=== PATIENT | male | born 1935 | race Caucasian/White ===

== ENCOUNTER 2024-11-16 06:13 | Day surgery (SDC) | payer OTHER, SELFPAY ==
[2024-11-16] VITALS (16 sets, daily range): BP systolic 118–147; BP diastolic 54–70; BMI 21.9
[2024-11-16 07:06] LABS: Hematocrit 33.1 % (39.0-52.0); Hemoglobin 11.3 g/dL (13.0-18.0); Mean Corp Hgb Conc. 34.1 g/dL (33.0-37.0); Mean Corpuscular Volume 96.8 fL (80.0-94.0); Mean Platelet Volume 10.5 fL (7.4-10.4); Platelet Count 133 10^3/uL (130-400); Red Blood Cell Count 3.42 10^6/uL (4.70-6.10); Red Cell Dist. Width 13.8 % (11.5-14.5); White Blood Cell Count 4.6 10^3/uL (4.8-10.8)
[2024-11-16 07:14] LABS: AST (SGOT) 28 U/L (17-59); Albumin 4.5 g/dl (3.5-5.0); Blood Urea Nitrogen 23 mg/dl (9-20); Carbon Dioxide 25 mmol/L (22-30); Estimated Creatinine Clearance 46 ml/min; Glucose 94 mg/dl (70-99); Total Bilirubin 0.5 mg/dl (0.2-1.3); Total Protein 7.2 g/dl (6.3-8.2); eGFR > 60.00
[2024-11-16 07:30] LABS: ALT (SGPT) 22 U/L (0-50); Alkaline Phosphatase 75 U/L (38-126); Calcium 9.8 mg/dl (8.4-10.2); Chloride 110 mmol/L (98-107); Potassium 4.4 mmol/L (3.5-5.1); Sodium 143 mmol/L (135-145)
[2024-11-16] MEDS: NSS 1000 IV (09:11)
--- NOTE | 2024-11-16 10:18 | CONSULT.STRU ---
Consultation
-
Date/Time Consultation Requested: 11/16/2024
Date/Time Consultation Performed: 11/16/2024
Requesting Provider: Odalis Siddiqi MD
Performing Provider: JEREMY Francisco
Reason for Consultation: /TAVR
Patient History
Physicians
Family Physician: Ruperto Motta MD
Outpatient Tailer Out: Josefa Barrett MD
Primary Tailer Out: Josefa Barrett MD
History of Present Illness
Mr. Haq is a very pleasant 89 yom with a past medical history significant for , CAD with a hx of CABG, HTN, and hyperlipidemia. His most recent echocardiogram is notable for EF 60-65%, AV P/M 73/37, AV 0.8, DI 0.2, Pk darlene 4.3, mild AI,
mild-moderate MR, mild TR. From a symptomatology standpoint, patient describes an increase in fatigue and a decrease in exercise tolerance more noticable over the last month. He denies BARRON, SOB, CP, LE edema. Discussed the pathophysiology and
treatment options of aortic stenosis including SAVR and TAVR, Explained the evaluation process comprising of lab work, CT scan, CT surgical consult, dental clearance, and a heart team discussion. TAVR booklet, contact information, prescriptions, and
appointments given to patient. Allowed for and answered questions at bedside.
Past Medical History
Past Medical History: CAD, HTN, Hypercholesterolemia and Valvular Disease (aortic stenosis)
Past Surgical History
Past Surgical History: CABG
Dental History
Dr. Stallworth--[facility]-- Form sent
Family History
Mother: N/A
Father: N/A
Social History
Alcohol: None
Drug: None
Tobacco: Non-Smoker
Allergies
Allergy/AdvReac Type Severity Reaction Status Date / Time
Sulfa (Sulfonamide Allergy Unknown Verified 11/16/24 06:23
Antibiotics)
Home Medications
�Medication �Instructions �Recorded �Confirmed �Type
doxazosin 8 mg tablet 8 mg PO QPM@199908/11/16 11/16/24 History
pantoprazole 40 mg tablet,delayed 40 mg PO QPM@199908/11/16 11/16/24 History
release
pravastatin 20 mg tablet 20 mg PO QPM@199908/11/16 11/16/24 History
aspirin 81 mg tablet,delayed 81 mg PO DAILY ##1 08/17/16 11/16/24 Rx
release
metoprolol succinate 50 mg 50 mg PO QPM #90 tabs 08/17/16 11/16/24 Rx
tablet,extended release 24 hr
oxycodone 5 mg tablet 5 mg PO Q4HPRN PRN MODERATE PAIN 08/17/16 11/16/24 Rx
##40
STS%
STS %: 8.04
Review of Systems
-
History Source: Patient
General: Reports Fatigue
HEENT: Reports No Symptoms
Respiratory: Reports No Symptoms
Cardiac: Reports No Symptoms
Abdomen/GI: Reports No Symptoms
: Reports No Symptoms
Musculoskeletal: Reports No Symptoms
Skin: Reports No Symptoms
Neurological: Reports No Symptoms
Vascular: Reports No Symptoms
Physical Exam
Vital Signs
Temp 97.5 F 11/16/24 06:36
Temp route: Oral 11/16/24 06:26
Pulse 71 11/16/24 08:55
Resp Rate 16 11/16/24 06:26
Blood pressure 142/69 11/16/24 08:55
Blood pressure extremity used: Left upper arm 11/16/24 06:26
Position: Sitting 11/16/24 06:26
MAP (cuff-Sonali Monitor) 93 11/16/24 08:55
SaO2 97 11/16/24 08:55
Oxygen Mode of Delivery Room air 11/16/24 06:26
Can the patient verbally communicate their pain? Yes 11/16/24 09:41
Actual Weight 56 kg 11/16/24 06:38
Body Mass Index (BMI) 21.9 11/16/24 06:38
Labs
11/16/24 06:43
11/16/24 06:43
Diagnostic Studies
Procedure Type:�Isolated AVR
Perioperative Outcome Estimate %
Operative Mortality 8.04%
Morbidity & Mortality 16.8%
Stroke 2.78%
Renal Failure 2.5%
Reoperation 5.69%
Prolonged Ventilation 10.7%
Deep Sternal Wound Infection 0.074%
Long Hospital Stay (>14 days) 9.2%
Short Hospital Stay (<6 days)* 24.6%
Exam
General: Well Developed, Well Nourished, No Apparent Distress and Comfortable
HEENT: Normocephalic and PERRLA
Neck: Trachea Midline
Respiratory: Clear (anteriorly)
Cardiac: Murmur (IV/ ROLAND)
GI: Soft, Non Tender, Non Distended and Normal Bowel Sounds
Rectal: Deferred by Provider
Skin: Warm and Dry
Neuro: Awake, Alert, Oriented and AO x 3
Psych: Calm
Assessment / Plan
-
Aortic Stenosis
Continue TAVR evaluation
Trend creatinine after contrast (RX given)
TAVR CT scan (12/04)
CT ssurgical consult (TT 11/16)
Frailty and KCcQ12 at consult
Continue aspirin
Dental clearance
Heart team discussion
Data Reviewed
-
Glass Mold Repairer: Discussed with Physician
Echo: Report Reviewed by me and Discussed with Physician
Labs: Labs Reviewed by me
Old Records: Reviewed
Total Time Spent with Patient (in minutes): 45
--- NOTE | 2024-11-16 11:53 | PTCARENOTE ---
All Discharge instructions given to patient and son with good understanding. radial site soft non tender. dsd intact with good radial pulse, Pt ready for discharge when the doctor to have a final check and follow up
--- NOTE | 2024-11-16 13:25 | PTCARENOTE ---
after saw patient and understand all f/u care. pt was discharged to home. site reamins intact iv d/romeo
--- NOTE | 2024-11-16 18:48 | ITS.CL.CATH ---
Addendum entered and electronically signed by Odalis Siddiqi MD 11/16/24 19:25:
HEMODYNAMICS : (mmHg)
AO (s/d) : 120/51
RADIATION SUMMARY: Fluoro Time (min): 8, Dose (mGy): 336.15, DAP (Gy.cm2) : 25.0
Original Note:
Butter Wrapper - Catheterization
Cardiac Catheterization
Procedure Report:
LEFT HEART CATHETERIZATION
Date of Procedure: November 16, 2024
Referring: Kimberly Barrett MD
PROCEDURES:
1. Left heart catheterization, coronary angiogram.
2. Moderate sedation.
3. Selective graft angiography
INDICATION: Workup pre-transcatheter aortic valve replacement; symptomatic severe aortic stenosis
ACCESS: Right radial artery, 6Fr. sheath, under US guidance.
HEMODYNAMICS : (mmHg)
AO (s/d) : [ ]
CORONARY FINDINGS
Dominance: Right
Left Main Trunk (LMT): Large caliber vessel that gives rise to the LAD and LCx branches. There is severe calcific 70 to 80% ostial to proximal stenosis.
Left Anterior Descending Artery (LAD): The left anterior descending artery is a heavily calcified vessel with a 80% proximal stenosis with a patent NICOLAS graft.
Left Circumflex Artery (LCx): The left circumflex artery has 100% chronic total occlusion with a patent saphenous vein graft supplying the OM retrogradely into the circumflex proper with right to left collaterals.
Right Coronary Artery (RCA): The right coronary artery is a dominant but small caliber vessel which supplies a very small distribution with a long 90 to 95% stenosis in the midportion and a short segment of occlusion at the crux. The small RPDA
fills via [id number]-hlyse collaterals.
GRAFT ANGIOGRAPHY:
1. NICOLAS to LAD is widely patent.
2. Saphenous vein graft to OM 2 is widely patent.
SEDATION: 37 minutes of procedural sedation was utilized. IV Midazolam and IV Fentanyl were administered. An independent medical front desk coordinator was present to assist with and help manage the patient's level of consciousness and physiologic status.
RADIATION SUMMARY: Fluoro Time (min): [ ], Dose (mGy): [ ], DAP (Gy.cm2) : [ ]
Closure Device: There were no immediate intra-procedural complications. The sheath was pulled in the bed laborer and a vascular-band applied to the right wrist for radial artery hemostasis using the patent hemostasis technique.
CONCLUSIONS
1. Significant tulalip coronary artery disease.
2. NICOLAS to LAD graft is widely patent.
3. Saphenous vein graft to OM 2 is widely patent.
RECOMMENDATIONS
1. Wean radial band per protocol. Monitor right hand perfusion and for bleeding from the radial site following removal of the vascular-band following trans-radial access.
2. Continue aggressive medical therapy and risk factor modification for secondary CAD prevention.
3. Continue outpatient workup for hematuria through urology.
4. Continue workup for severe aortic stenosis with consideration for transcatheter aortic valve replacement after completion of CT angio of chest, abdomen and pelvis and CT surgery consult.
Copy to: Kimberly Barrett MD
Odalis Siddiqi MD, [facility], [facility]
== END 2024-11-16 13:00 | disposition home or self-care (01) ==
LOC: CATH 06:13
PROVIDERS: ATTENDING PHYSICIAN Internal Medicine Interventional Cardiology
DX: I08.3 Combined rheumatic disorders of mitral, aortic and tricuspid valves (principal); I25.10 Atherosclerotic heart disease of native coronary artery without angina pectoris; I10 Essential (primary) hypertension; Z95.1 Presence of aortocoronary bypass graft; I25.82 Chronic total occlusion of coronary artery; Z79.899 Other long term (current) drug therapy; Z79.82 Long term (current) use of aspirin
CPT/HCPCS: 99152; 99153; 80053; 85027; 93455; C1894; Q9967

== ENCOUNTER → 2024-12-04 09:02 | Outpatient (REF) | payer OTHER, SELFPAY | LOC: RAD 09:02 | PROVIDERS: ATTENDING PHYSICIAN Nurse Practitioner Acute Care | DX: I35.0 Nonrheumatic aortic (valve) stenosis (principal) | CPT/HCPCS: 74174; 75572; Q9967 ==

== ENCOUNTER 2024-12-26 18:37 | Inpatient (IN) | payer OTHER, SELFPAY ==
[2024-12-26] VITALS (24 sets, daily range): BP systolic 66–120; BP diastolic 35–88; BMI 22.2
--- NOTE | 2024-12-26 12:24 | ED.GENMED ---
History of Present Illness
General
Chief Complaint: Weakness
Source: patient and family
Exam Limitations: none
Time Seen by Provider: 12/26/24 12:19
History of Present Illness
History of Present Illness:
89yoM with a history of coronary artery disease s/p CABG, hypertension, hyperlipidemia, aortic stenosis awaiting TAVR, and remote history of prostate cancer presenting for evaluation of dizziness. Patient reports progressive lightheadedness over
the past month and a half. He was previously able to walk 2 miles without any issues but he is now unable to do normal household tasks without significant dizziness. His son is concerned due to gait imbalance but patient has not fallen or lost
consciousness. Patient also reports hematuria over the past month with intermittent difficulty voiding. He was seen by his PCP yesterday for his symptoms and outpatient blood work was ordered. He was told that he appeared very pale and his blood
pressure was low and amlodipine was discontinued. Patient denies any shortness of breath, abdominal pain, vomiting, diarrhea, fevers.
Phy Exam
Physical Exam
Physical Exam:
Chronically ill-appearing, frail, no apparent distress
General Physical Exam
General Presentation: no apparent distress
General Skin: warm, dry and pale
General Habitus: elderly
General Mental: alert
ENT Exam
ENT Exam: normocephalic
Cardiovascular Exam
Cardiovascular Exam: systolic murmur
Pulmonary Exam
Pulmonary Exam: lungs clear, no respiratory distress, no rales, no crackles, no rhonchi and no wheezing
Gastrointestinal Exam
Gastrointestinal Exam: non tender, soft and non distended
Neurological Exam
Neurological Exam: alert
[place] Coma Scale
Eye Opening: Spontaneous
Verbal Response: Oriented
Motor Response: Obeys Commands
GCS Total Score: 15
Skin Exam
Skin Exam: warm/dry and pallor
Psychiatric Exam
Psychiatric Exam: normal mood/affect
Course
Orders/Labs/Results
Orders:
Orders
12/26/24 11:10
ECG [Electrocardiogram (*1)] Urgent
Reason for Study: Fatigue / Weakness
EKG- Treatment ONCE
12/26/24 12:26
Complete Blood Count/With Diff Urgent
Comprehensive Metabolic Panel Urgent
Ferritin Urgent
Comment: ADD ON
Iron Urgent
Comment: ADD ON
NT-proBNP Urgent
Comment: ADD ON
TSH Urgent
Comment: ADD ON
Total Iron Binding Urgent
Comment: ADD ON
Troponin I Urgent
12/26/24 12:40
Add On- LAB Urgent
Tests Added?: TSH, iron panel
CT Abd/pelvis W Iv Cont Urgent
Comment:
Reason For Exam: hematuria
12/26/24 13:14
Type+Screen Urgent
12/26/24 13:34
Blood Bank Products [* Blood Bank Products] Urgent
Blood Bank Products: *Packed RBC Leuko(PRBC's)
Quantity: 3
Transfuse Today: Yes
Reason: Anemia
12/26/24 14:28
Urinalysis Reflex To Culture Urgent
Date Specimen was Collected: 12/26/24
Time Specimen was Collected: 12:09
Urine Microscopic Reflex Cult Urgent
12/26/24 15:56
Add On- LAB Routine
Tests Added?: BNP
12/26/24 16:32
CARDIOLOGY CONSULT Routine
Consulting Provider: Thomas Colon
Was physician already notified: Yes
Reason for consult: ST lateral depressions Trop elevation CP free pending TAVR
Abnormal Lab Results
12/26/24 12/26/24 12/26/24
12:26 13:14 14:28
WBC 3.5 L 10^3/uL
(4.8-10.8)
RBC 1.53 L 10^6/uL
(4.70-6.10)
Hgb 4.8 L* g/dL
(13.0-18.0)
Hct 14.8 L* %
(39.0-52.0)
MCV 96.7 H fL
(80.0-94.0)
MCH 31.4 H pg
(27.0-31.0)
MCHC 32.4 L g/dL
(33.0-37.0)
MPV 10.6 H fL
(7.4-10.4)
Absolute Lymphs (auto) 0.4 L 10^3/uL
(1.2-3.4)
Neutrophils % 79.1 H %
(42.2-75.2)
Lymphocytes % 11.1 L %
(20.5-51.1)
Sodium 133 L mmol/L
(135-145)
BUN 30 H mg/dl
(9-20)
Glucose 105 H mg/dl
(70-99)
Ferritin 8.0 L ng/ml
(17.9-464.0)
Troponin I 0.572 H* ng/ml
Total Protein 6.1 L g/dl
(6.3-8.2)
Urine Ketones 1+ A
(Negative)
Ur Occult Blood Reflex 4+ A
(Negative)
Urine RBC >100 A /HPF
(0-2)
Urine Albumin (Reflex) 4+ A
(Neg - Trace)
Crossmatch IS Only See Detail
12/26/24 12:26
12/26/24 12:26
Vital Signs
Initial and Last Documented VS:
Initial Vital Signs
Temp Pulse Resp BP Pulse Ox
97.9 F 71 18 95/40 100
12/26/24 11:07 12/26/24 11:07 12/26/24 11:07 12/26/24 11:07 12/26/24 11:07
Last Documented Vital Signs
Temp Pulse Resp BP Pulse Ox
97.9 F 72 15 96/49 95
12/26/24 11:07 12/26/24 14:45 12/26/24 14:45 12/26/24 14:23 12/26/24 14:45
MDM/Problems Addressed
Differential Diagnosis Includes:
89yoM here with progressive lightheadedness x 1.5 months. Also having hematuria x 1 month. Blood pressure 95/40 in triage. Remainder of vital stable. He is pale on exam. Differential diagnosis includes but is not limited to: acute blood loss
anemia, orthostasis, dehydration, aortic stenosis, malignancy
Initial ED plan: Check cardiac labs, TSH, iron panel, UA, EKG, and CT abdomen.
*Pulse Oximetry
SaO2: 100
Oxygen Mode of Delivery: Room air
Patient hypoxic: no (100%)
*EKG
Interpreted by ED Provider?: Yes
EKG Intrepretation Date: 12/26/24
Heart Rate: 69
Rate: normal
Rhythm: sinus
[place]: normal axis
Interval: normal interval
QRS Pattern: normal QRS
Ischemia: non-specific ST changes
*Critical Care Note
Total Time (30-74mins, 75-104mins- exclusive of procedures): Not Applicable
Update Note
Update Note:
Labs reveal a hemoglobin of 4.8, down from 11.3 less than 2 months ago. Suspect anemia secondary to ongoing blood loss from hematuria. Troponin elevated at 0.57 and there are nonspecific ST changes on EKG. Suspect elevated troponin is demand
ischemia from his anemia. CT shows findings concerning for bladder malignancy. Consent obtained and 2 units PRBCs ordered for transfusion. Patient admitted for further management.
ED Attending Note
-
Portions of this chart may have been created with voice recognition software.� Occasional wrong word or��sound alike� substitutions may have occurred due to the inherent limitations of voice recognition software.
Discharge Plan
Departure
Patient Disposition: Admit
Date of Disposition: 12/26/24
Time of Disposition: 15:15
Presentation/result/management discussed w/ accepting MD/DO: Hospitalist
Discharge Problem:
Symptomatic anemia, Hematuria, Lesion of bladder, Elevated troponin
Prescriptions:
No Action
doxazosin 8 MG tablet
8 mg PO DAILY
pantoprazole 40 MG tablet,delayed release (DR/EC)
40 mg PO DAILY
aspirin 81 MG tablet,delayed release (DR/EC)
81 mg PO DAILY Qty: 1 0RF
atorvastatin 40 mg Tablet
80 mg PO DAILY
benazepril 20 mg Tablet
20 mg PO DAILY
ferrous sulfate 325 mg (65 mg iron) Tablet
325 mg PO DAILY
metoprolol succinate 50 MG tablet extended release 24 hr
50 mg PO DAILY
Referrals:
OSITO DUENAS MD [Family Provider, Family Practice]
Interventions
Interventions:
*Risk Screen - Suicide Last Done: 12/26/24 11:07
*General Assessment Last Done: 12/26/24 11:10
*Neglect/Abuse Screening Last Done: 12/26/24 11:07
*ED- Fall Risk Assessment Last Done: 12/26/24 14:00
ED- Cardiac Assessment Last Done: 12/26/24 11:10
ED- Neurological Assessment Last Done: 12/26/24 11:10
ED- Pulmonary Assessment Last Done: 12/26/24 11:10
Discharge Date and Time
Print Language: KAZAKH
[2024-12-26 12:58] LABS: Hematocrit 14.8 % (39.0-52.0); Hemoglobin 4.8 g/dL (13.0-18.0); Mean Corp Hgb Conc. 32.4 g/dL (33.0-37.0); Mean Corpuscular Volume 96.7 fL (80.0-94.0); Nucleated Red Blood Cells % 0 % (-); Platelet Count 132 10^3/uL (130-400); Red Cell Dist. Width 13.9 % (11.5-14.5)
[2024-12-26 13:04] LABS: ALT (SGPT) 28 U/L (0-50); AST (SGOT) 32 U/L (17-59); Albumin 4.0 g/dl (3.5-5.0); Alkaline Phosphatase 67 U/L (38-126); Blood Urea Nitrogen 30 mg/dl (9-20); Calcium 9.2 mg/dl (8.4-10.2); Carbon Dioxide 24 mmol/L (22-30); Chloride 105 mmol/L (98-107); Glucose 105 mg/dl (70-99); Potassium 4.7 mmol/L (3.5-5.1); Sodium 133 mmol/L (135-145); Total Protein 6.1 g/dl (6.3-8.2); eGFR 58.53
[2024-12-26 13:10] LABS: Iron 180 ug/dl (49-181)
[2024-12-26 13:21] LABS: Total Iron Binding Capacity 412 ug/dl (261-462)
[2024-12-26 13:22] LABS: Troponin I 0.572 ng/ml
[2024-12-26 14:48] LABS: Urine Character Cloudy (Clear)
[2024-12-26 14:58] LABS: Urine Red Blood Cell >100 /HPF (0-2); Urine Squamous Cell 0-2 /LPF (Few)
[2024-12-26 15:48] LABS: TSH 1.33 uIU/ml (0.47-4.68)
--- NOTE | 2024-12-26 15:50 | HPS.HSE ---
Addendum entered and electronically signed by Navdeep Mejia MD 12/26/24 19:34:
Correction IMU admit
Original Note:
Family Physician
-
Family Physician: OSITO DUENAS MD
Chief Complaint
-
Weakness
History of Present Illness
89M CAD CABG HTN HLD pending TAVR remote Hx Prostate Ca p/w exertional dyspnea weakness dizziness lightheadedness hematuria. Patient reports progressive lightheadedness over the past month and a half. He was previously able to walk 2 miles
without any issues but now unable to do normal household tasks without significant dizziness. Lives alone. Patient also reports hematuria over the past month with intermittent difficulty voiding. ED eval significant for Hgb 4.[address] abd/pelvis
concerning for bladder/renal ca. ST depressions also noted on lateral leads EKG with associate troponin elevation 0.572. Chest pain free at rest, though does report intermittent chest tightness/pressure sensation unclear frequency/duration. Blood
pressure borderline low/hypotensive, otherwise stable respiratory status on room air, non-tachy, afebrile, AOx3 conversant coherent.
Medical History
Past Medical History
Past Medical History: Reports Other (as above)
Past Surgical History: Reports Other (as above)
Social History
Tobacco: Non-smoker
Alcohol: Occasional
Drug: None
Personal:
Living: Alone
Employment: Retired
Family History
Family History: Not pertinent (reviewed)
Allergies / Home Medications
Allergies reflects when Allergies were last updated in [employer].
Home Medications with original date entered in [employer]
Allergy/Medication List:
Allergies
Allergy/AdvReac Type Severity Reaction Status Date / Time
Sulfa (Sulfonamide Allergy Unknown Verified 12/26/24 11:07
Antibiotics)
Home Medications
doxazosin 8 mg tablet 8 mg PO DAILY 08/11/16
pantoprazole 40 mg tablet,delayed release 40 mg PO DAILY 08/11/16
aspirin 81 mg tablet,delayed release 81 mg PO DAILY ##1 08/17/16
atorvastatin 40 mg tablet 80 mg PO DAILY 11/16/24
benazepril 20 mg tablet 20 mg PO DAILY 11/16/24
ferrous sulfate 325 mg (65 mg iron) tablet 325 mg PO DAILY 12/26/24
metoprolol succinate 50 mg tablet,extended release 24 hr 50 mg PO DAILY 12/26/24
Review of Systems
-
A 12 point ROS was completed and negative except as noted: Yes
Constitutional: Reports Other (as below)
Physical Exam
Vital Signs
Vital Signs
Temp Pulse Resp BP Pulse Ox
97.9 F 72 15 96/49 95
12/26/24 11:07 12/26/24 14:45 12/26/24 14:45 12/26/24 14:23 12/26/24 14:45
Physical Exam
General: Other (as below)
Laboratory Results
-
12/26/24 12:26
12/26/24 12:26
Laboratory Results
Total Bilirubin 0.5 mg/dl (0.2-1.3) 12/26/24 12:26
AST 32 U/L (17-59) 12/26/24 12:26
ALT 28 U/L (0-50) 12/26/24 12:26
Alkaline Phosphatase 67 U/L (38-126) 12/26/24 12:26
Troponin I 0.572 ng/ml H* 12/26/24 12:26
Impression/Plan
-
ROS
General: Denies fever chills night sweats unexpected weight loss
Neuro: Denies seizure shaking loss of consciousness dizziness vertigo
Psych: denies depression hallucinations confusion manic episodes
Endocrine: Denies polyuria polydipsia polyphagia heat/cold intolerance
HEENT: Denies blindness visual disturbances epistaxis
Pulmonary: denies coughing hemoptysis sneezing reports dyspnea on exertion
Cardiovascular: reports intermittent chest tightness/pressure sensation unclear duration frequency denies palpitations leg swelling
Hematology: reports signs symptoms of anemia such as lightheaded dizziness with activity exertional dyspnea
Gastrointestinal: denies nausea vomiting diarrhea constipation hematemesis hematochezia melena
Genito-Urinary: reports hematuria denies dysuria
Musculoskeletal: denies joint pain weakness
Dermatology: denies rash laceration bruising
Physical Exam
General: No cyanosis or jaundice. pallor noted
HEENT: Throat clear. PERRLA Normocephalic atraumatic, Pale Palpebral conjunctiva
NECK: Supple. No JVD Carotid Bruits
RESPIRATORY: Lungs clear to auscultation. No crackles wheezes stridor
CVS: S1, S2 normal. RRR. Systolic murmur 3/6
ABDOMEN: Soft, non-tender. appears distended. Bowel sounds present
EXTREMITIES: No peripheral cyanosis or edema.
WEATHER FORCASTER: AOx3 conversant coherent
IMPRESSION:
89M CAD CABG HTN HLD pending TAVR remote Hx Prostate Ca p/w exertional dyspnea exercise intolerance weakness dizziness lightheadedness hematuria 1-2 mo duration. Previously able to walk 2 miles daily w/o issues but now unable to do normal
household tasks without significant dizziness. Lives alone. ED eval significant for Hgb 4.[address] abd/pelvis concerning for bladder/renal ca. ST depressions also noted on lateral leads EKG with associate troponin elevation 0.572. Chest pain
free at rest, though does report intermittent chest tightness/pressure sensation unclear frequency/duration. Blood pressure borderline low/hypotensive, otherwise stable respiratory status on room air, non-tachy, afebrile, AOx3 conversant coherent.
PLAN:
#Severe symptomatic Anemia
#CT abd/pelvis concerning for bladder/Lt renal ca
#Hematuria
#Remote hx Prostate Ca
Tele admit
transfuse 3PRBC, follow up post-transfusion with AM labs
Urology and Oncology Eval requested
cont home doxazosin with holding parameters
bladder scan prn
#Troponin elevation possibly Non-ischemic ME 2/2 severe anemia as above
#EKG notes lateral ST depressions, currently chest pain free
#Severe , pending TAVR
#Hx CABG
#Hyperlipidemia
Cardio eval requested
ASA on hold d/t severe anemia as above
cont statin
Metoprolol cont with holding parameters
Trend troponin
#Hx HTN
ACEI on hold d/t borderline low normotension/hypotension
cont metoprolol and doxazosin with holding parameters
#Leukopenia
monitor
#Mild Hyponatremia
monitor
DVT ppx SCD
DNR as per patient, family at bedside in agreement with patient's decision
Discussed with patient and patient's family at bedside.
I spent a total of 80 minutes with the patient or on the floor. More than 50% of this time involved counseling and coordination of care.
[2024-12-26 15:53] LABS: Ferritin 8.0 ng/ml (17.9-464.0)
--- NOTE | 2024-12-26 17:44 | W.PN.URO.CBU ---
Today's Communication / Plan
-
AWAIT TRANSFUSION AND CARDIAC CLEARANCE
Assessment / Plan
-
NEEDS TO TRANSFUSE AND GET CLEARED BY CARDILIOGYM FOR GEMNERAL ANESTHESIA CYSTO AND PROBALE YRUBY=-T AND EVAC OF VCLOT IF JUST BPH WHCH IDOUBT THEN FMED THERAPY AFTER CYSTO
Diagnosis
-
Date of Service: December 26, 2024
-
Patient Diagnosis:remote h/o acp s/p xrt then started having almost daily hematuria after [id number] His local utoligsit tried tx for uti but cx neg and routine appt set up mid december Hematuriapersisted no dysuria no major clots no colic
feels like empties But pt felt weak saw pcp hgb drawn and had hgb 4.[address] scan revealed proba vic cyst no hydro but 4cm bladder mass c/w tcc nbut clot and bph not ruled out.hgb 4 Wants suggested to need TAVr but cardilogy staes
no Tavr WITHOUT ADDRESSING BLADDER MASS NEEDS ANTICOAGLANTS.
Post Op Day:
Subjective
-
WEAK NO FEVER CHILLS
Objective
-
Vital Signs
Temp Pulse Resp BP Pulse Ox
98.2 F 80 18 86/47 96
12/26/24 17:25 12/26/24 17:25 12/26/24 17:25 12/26/24 17:25 12/26/24 17:25
Intake and Output
12/25/24 12/26/24 12/27/24
06:59 06:59 06:59
Intake Total 0 / 0
Balance 0 / 0
Intake:
Blood Product Amount Infused ( 0 / 0
mL)
Packed Rbc Leukoreduced Unit 0 / 0
[id number]
Laboratory Results
12/26/24 12:26
12/26/24 12:26
Review of Systems
-
Constitutional: Fatigue
Cardiac: No Symptoms
Abdomen/GI: No Symptoms
: Bleeding
Physical Exam
-
General - well developed, well nourished, no acute distress
Chest - clear bilaterally
Abdomen - soft, non-tender, positive bowel sounds, no CVAT, no incisional pain or distention
Genitalia - normal
Rectal - normal
Skin - warm & dry with no rash
Neuro - AOx3, no motor deficits
Extremities - no clubbing, no cyanosis, no edema
Incision - clean, dry
D
Care Review
Data Reviewed
Discussed with: Cardiology, Hospitalist and Family
CT Scan: Image Pers Reviewed
[2024-12-26 21:39] LABS: Troponin I 0.825 ng/ml
--- NOTE | 2024-12-26 22:25 | PTCARENOTE ---
Addendum entered by Melania Garg RN 12/26/24 23:57:
*pierre placed and only 350 ml of bloody urine with clots drained*
Original Note:
Received patient from the ED. Patient with complaints of being unable to void- bladder scanned for greater than 750. Patient came in to the ED with hematuria and hgb of 4.8. For cysto/turbt once transfused and cleared by cards for anesthesia. On
call provider made aware and discussed with her whether or not to straight cath or place indwelling. call center assistant provider placed order for indwelling pierre. Pierre placed and 750 mls of bloody urine with clots draining. Will continue to monitor.
--- NOTE | 2024-12-26 23:58 | PTCARENOTE ---
Patient with only 350 ml output blood urine with clots after indwelling pierre placed. junior administrative assistant provider made aware and ordered hand irrigation and to TT digital content coordinator urology. junior administrative assistant urology contacted and made aware of situation. Order for [address]
pierre obtained and to hand irrigate with 200 ml until urine runs clear and to start CBI. Urology recommendations relayed to community services coordinator provider and digital content coordinator provider placed orders.
[2024-12-27] VITALS (29 sets, daily range): BP systolic 94–131; BP diastolic 41–82
--- NOTE | 2024-12-27 00:43 | W.PN.UPDATE ---
Addendum entered and electronically signed by JEREMY Molina 12/27/24 03:13:
hgb level is 6.6 will order one unit of blood
Original Note:
Update Note
Progress Note Update
-Pierre ordered for urinary retention/ bladder scan 750cc.
-350cc of bloody urine with clots drained after pierre placed.
-New recommendation per urology button decorating machine operator to replace pierre with 24fr/ 3 way, hand irrigation, and to start CBI after urine runs clear.
-Vital signs within normal limit. Patient just finished the 2nd unit of blood. Will monitor h&h q 6hrs
[2024-12-27 03:01] LABS: Blood Urea Nitrogen 27 mg/dl (9-20); Calcium 9.0 mg/dl (8.4-10.2); Carbon Dioxide 20 mmol/L (22-30); Chloride 110 mmol/L (98-107); Estimated Creatinine Clearance 38 ml/min; Glucose 82 mg/dl (70-99); Magnesium 2.2 mg/dl (1.6-2.3); Potassium 4.2 mmol/L (3.5-5.1); Sodium 138 mmol/L (135-145); eGFR > 60.00
[2024-12-27 03:06] LABS: Hematocrit 19.7 % (39.0-52.0); Hemoglobin 6.6 g/dL (13.0-18.0); Mean Corp Hgb Conc. 33.5 g/dL (33.0-37.0); Mean Corpuscular Volume 92.1 fL (80.0-94.0); Platelet Count 121 10^3/uL (130-400); Red Cell Dist. Width 14.5 % (11.5-14.5)
[2024-12-27 03:33] LABS: Troponin I 2.030 ng/ml
--- NOTE | 2024-12-27 05:01 | PTCARENOTE ---
CBI initiated overnight. Punch colored urine with no clots. Am hgb 6.6. call or contact centre team leader provider made aware and 3rd unit of PRBCs to be infused.
--- NOTE | 2024-12-27 05:43 | PTCARENOTE ---
Patient with sp02 at 88 percent while asleep. Placed on 2 liters NC. Lungs diminished no complaints of SOB. Satting 99 percent on 2 liters.
[2024-12-27] MEDS: LIPITOR 80 MG PO (08:10)
[2024-12-27] MEDS: FLOMAX 0.4 MG PO (08:11)
[2024-12-27] MEDS: PROTONIX 40 MG PO (08:11)
[2024-12-27] MEDS: FEOSOL 325 MG PO (08:11)
--- NOTE | 2024-12-27 08:36 | W.PN.CARDCBS ---
Addendum entered and electronically signed by Xu Seay MD 12/27/24 19:05:
Patient with predominantly asymptomatic Mobitz 1 second-degree heart block. Metoprolol has been stopped. At present, no indication for pacemaker implantation but will need to observe.
Hopefully, patient will be improved as beta-meliton is discontinued, will need to reassess in a.m. before he goes to the OR.
Original Note:
Today's Communication / Plan
-
Check echo
Okay to proceed in a.m. to the OR for TURBT
Impression / Plan
-
Assessment:
Subacute/acute blood loss anemia, initial Hgb 4.7 on 12/26/24
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
Abnormal CT abdomen/pelvis with bladder lesions concerning for malignancy and possible left kidney complex cyst versus malignant lesion 12/26/2024
Elevated troponin, suspected nonischemic myocardial injury in setting of above
Severe , undergoing TAVR work up
CAD
s/p CABG x2 NICOLAS to LAD and SVG to OM2 2016
s/p cath (TAVR work up) with patient bypass grafts, severe [place] CAD 11/16/24
HTN
HLD
History of prostate cancer s/p radiation therapy
ECHO at [facility] 10/18/24:EF 60%, mild cLVH, grade 1 diastolic dysfunction, Severe with peak/mean gradient 73/37 mmHg LEANNE 0.8 cm�, peak velocity 4.3M/S with dimensionless index of 0.2, mild to mod MR, mild TR, mod DC, PAS 24mmHg, at least
one echolucent structure in hepatic parenchyma likely consistent with hepatic cysts
Plan:
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
His functional status despite his aortic stenosis was good up until the time that he became anemic. Could walk 30 minutes even with his aortic stenosis. Also encouraging is the fact that he tolerated a hemoglobin of 4.8 as well as he did.
It is helpful that he had a cardiac catheterization showing patent grafts just 1 month ago, and that LV function is normal.
Recommend proceeding as planned for TURBT in a.m. Cardiac risk will be somewhat elevated given his aortic stenosis and non-ACS related troponin elevation.
Continue metoprolol.
We will recheck echocardiogram today.
Progress Note - Technical Account Executive
Subjective
Date of Service: December 27, 2024:
89-year-old male with admitted with dizziness, lightheadedness and hemoglobin of 4.8 in the setting of hematuria and newly discovered bladder tumor. Currently undergoing evaluation for TAVR.
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
FH/SH/allergies/meds as previously documented
ROS, rest of history as previously documented
Current meds:Atorvastatin 80 mg a day, iron, tamsulosin, pantoprazole 40 mg a day, metoprolol tartrate 25 mg twice daily
98/55, pulse 70, respiratory rate 20, afebrile, sats 92%, he says he feels considerably better, still somewhat pale, lungs are clear, aortic stenosis murmur, abdomen benign not much edema JVD okay
ECG: Sinus rhythm, borderline first-degree AV block, nonspecific ST and T changes
Hemoglobin 6.6, white count 4.5, 121 platelets, BUN and creatinine are 27 and 1.1, proBNP is 3970, peak troponin is 2.03
Objective
Labs:
12/27/24 14:00
12/27/24 02:41
Labs
Hgb Cancelled 12/27/24 14:00
Hct Cancelled 12/27/24 14:00
Plt Count 121 10^3/uL (130-400) L 12/27/24 02:41
Sodium 138 mmol/L (135-145) 12/27/24 02:41
Potassium 4.2 mmol/L (3.5-5.1) 12/27/24 02:41
BUN 27 mg/dl (9-20) H 12/27/24 02:41
Creatinine 1.1 mg/dL (0.7-1.3) 12/27/24 02:41
Glucose 82 mg/dl (70-99) 12/27/24 02:41
Troponins
12/26/24 12/26/24 12/27/24
12:26 21:06 02:41
Troponin I 0.572 H* 0.825 H* 2.030 H* D
12/27/24
06:00
Troponin I Cancelled
Vital Signs and I&O:
Vital Signs
Temp Pulse Resp BP Pulse Ox
36.7 C 70 20 98/55 92
12/27/24 07:45 12/27/24 07:45 12/27/24 07:45 12/27/24 08:11 12/27/24 07:45
Vital Signs
Temp Pulse Resp BP Pulse Ox
36.7 C 70 20 98/55 92
12/27/24 07:45 12/27/24 07:45 12/27/24 07:45 12/27/24 08:11 12/27/24 07:45
Intake & Output
12/25/24 12/26/24 12/27/24 12/28/24
07:59 07:59 07:59 07:59
Intake Total 750 / 750
Output Total 900 / 900
Balance -150 / -150
Physical Exam
Physical Exam
See above
--- NOTE | 2024-12-27 08:36 | W.PN.URO.CBU ---
Today's Communication / Plan
-
OP MARTIN TENTAIVELY TUESDAY
Assessment / Plan
-
NEEDS TO TRANSFUSE AND GET CLEARED BY CARDIOLOGY FOR TURBT EARLY TUESDAY NEED HGB UP
Diagnosis
-
Date of Service: December 27, 2024
-
Patient Diagnosis:
Post Op Day:
Patient Diagnosis:remote h/o acp s/p xrt then started having almost daily hematuria after [id number] His local utoligsit tried tx for uti but cx neg and routine appt set up mid december Hematuriapersisted no dysuria no major clots no colic
feels like empties But pt felt weak saw pcp hgb drawn and had hgb 4.[address] scan revealed proba vic cyst no hydro but 4cm bladder mass c/w tcc nbut clot and bph not ruled out.hgb 4 Wants suggested to need TAVr but cardilogy staes
no Tavr WITHOUT ADDRESSING BLADDER MASS NEEDS ANTICOAGLANTS.
Post Op Day:
Subjective
-
still mild hematuria
Objective
-
Vital Signs
Temp Pulse Resp BP Pulse Ox
98.1 F 70 20 98/55 92
12/27/24 07:45 12/27/24 07:45 12/27/24 07:45 12/27/24 08:11 12/27/24 07:45
Intake and Output
12/26/24 12/27/24 12/28/24
06:59 06:59 06:59
Intake Total 500 / 500 250 / 250
Output Total 900 / 900
Balance -400 / -400 250 / 250
Intake:
Blood Product Amount Infused ( 500 / 500 250 / 250
mL)
Packed Rbc Leukoreduced Unit 250 / 250
[id number]
Packed Rbc Leukoreduced Unit 250 / 250
[id number]
Packed Rbc Leukoreduced Unit 0 / 0 250 / 250
[id number]
Output:
Urine, Colvin 900 / 900
Laboratory Results
12/27/24 14:00
12/27/24 02:41
Review of Systems
-
: Difficulty Voiding and Bleeding
Physical Exam
-
General - well developed, well nourished, no acute distress
Chest - clear bilaterally
Abdomen - soft, non-tender, positive bowel sounds, no CVAT, no incisional pain or distention
Genitalia - normal
Rectal - normal
Skin - warm & dry with no rash
Neuro - AOx3, no motor deficits
Extremities - no clubbing, no cyanosis, no edema
Incision - clean, dry
Dressing - clean, dry, intact
Care Review
Data Reviewed
Discussed with: Hospitalist and Nursing
CT Scan: Image Pers Reviewed
--- NOTE | 2024-12-27 09:01 | CON.ONC ---
Consultation
-
Date Consultation Requested: 12/27/24
Date Consultation Performed: 12/27/24
Performing Provider: Jeannette Bruno
Impression
Impression
Hematuria and Bladder Mass
- visualized on CT AP: 3.6 x 1.3 cm exophytic lesion in the posterior aspect of the urinary bladder in the region of the trigone
- urology consulted, TURBT tentatively scheduled for Tuesday
Symptomatic Anemia in setting of acute blood loss
- gross hematuria for last 6 weeks
- blood transfusion initiated today
Aortic Stenosis with planned TAVR
- cardiology will delay TAVR until after bladder surgery d/t need for anticoagulation after procedure
Plan
Plan
- repeat CBC after blood transfusion
- TURBT scheduled tentatively for Tuesday with urology
- will continue to follow while admitted
Patient History
History of Present Illness
Patient is a 89 yo male with PMH of hypertension, CAD s/p CABG, pending TAVR, history of prostate cancer s/p radiation who presented to the ED with dyspnea, weakness, lightheadedness and hematuria. Patient has been having progressive
lightheadedness for the past month. 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 Patient also notes hematuria over last 6 weeks associated with a difficulty in
voiding. Patient previously followed with his urologist, not associated with [facility], and saw them shortly after the hematuria started and completed a course of antibiotics for possible UTI that made no difference in his hematuria.
In the ED Hgb 4.8. Patient also had a CT AP for concern of bladder/renal cancer. CT revealed a 3.6 x 1.3 cm exophytic lesion in the posterior aspect of the urinary bladder in the region of the trigone which is highly concerning for malignancy and a
3.3 cm mildly hyperdense lesion in the interpole of the left kidney which may represent a complex cyst, but if in setting of malignancy, MRI recommended. Urology consulted.
Patient also had ST depressions noted on lateral leads EKG with associate troponin elevation 0.572. Patient denied chest pain, but does report intermittent chest tightness and pressure. Cardiology consulted. TAVR to be completed after bladder
surgery d/t anticoagulation.
Hgb this morning was 6.6. Patient started blood transfusion this morning. Needs improved Hgb and cardiac clearance for anesthesia before urology will perform cysto or surgical excision of bladder mass.
Today patient is seen at the bedside with his specialty molder in the room. Patient starting to get another unit of blood. Patient is starting to feel stronger and denies ROS. He hopes to get his appetite back soon.
Past-Medical/Surgical History
Past Medical History
CAD s/p CABG
HTN
HLD
pending TAVR
history of prostate cancer s/p radiation
Patient Medication
�Medication �Instructions �Recorded �Confirmed �Last Taken �Type
doxazosin 8 mg tablet 8 mg PO DAILY BPH 08/11/16 12/26/24 12/26/24 History
pantoprazole 40 mg tablet,delayed 40 mg PO DAILY Gastrointestinal 08/11/16 12/26/24 12/26/24 History
release Issue
aspirin 81 mg tablet,delayed 81 mg PO DAILY ##1 08/17/16 12/26/24 12/26/24 Rx
release
atorvastatin 40 mg tablet 80 mg PO DAILY High Cholesterol 11/16/24 12/26/24 12/26/24 History
benazepril 20 mg tablet 20 mg PO DAILY Blood Pressure 11/16/24 12/26/24 12/26/24 History
ferrous sulfate 325 mg (65 mg 325 mg PO DAILY Supplement 12/26/24 12/26/24 12/26/24 History
iron) tablet
metoprolol succinate 50 mg 50 mg PO DAILY Heart 12/26/24 12/26/24 12/26/24 History
tablet,extended release 24 hr Disease/Condition
Active Medications
Generic Name Dose Route Start Last Admin
Trade Name Freq PRN Reason Stop Dose Admin
Acetaminophen 650 mg 12/26/24 20:13
Acetaminophen 325 Mg Tablet PO 01/23/25 20:12
Q4HPRN PRN
mild pain/FRANKLIN/temp> 100.4F
Atorvastatin Calcium 80 mg 12/27/24 08:00 12/27/24 08:10
Atorvastatin (Lipitor) 40 Mg Tablet PO 01/24/25 07:59 80 mg
DAILY ABDI Administration
Bisacodyl 10 mg 12/26/24 20:13
Bisacodyl 10 Mg Rectal Suppository RECTAL 01/23/25 20:12
[id number] PRN
constipation
Ferrous Sulfate 325 mg 12/27/24 08:00 12/27/24 08:11
Ferrous Sulfate 325 Mg Tablet PO 01/24/25 07:59 325 mg
DAILY ABDI Administration
Metoprolol Tartrate 25 mg 12/27/24 08:00 12/27/24 08:11
Metoprolol 25 Mg Regular Release Tablet PO 01/24/25 07:59 Not Given
BID ABDI
Pantoprazole Sodium 40 mg 12/27/24 08:00 12/27/24 08:11
Pantoprazole 40 Mg Delayed Release Tablet PO 01/24/25 07:59 40 mg
DAILY ABDI Administration
Polyethylene Glycol 17 grams 12/26/24 20:13
Polyethylene Glycol Powder 17 Grams Packet PO 01/23/25 20:12
DAILYPRN PRN
constipation
Senna/Docusate Sodium 1 tablet 12/26/24 20:13
Docusate W/Senna (Mae-Colace) Tablet PO 01/23/25 20:12
BIDPRN PRN
constipation
Sodium Chloride 0 flush 12/26/24 21:00
Sodium Chloride 0.9% (Flush) Syringe IV 01/23/25 20:59
PER PROTOCOL ABDI
Tamsulosin HCl 0.4 mg 12/27/24 08:00 12/27/24 08:11
Tamsulosin 0.4 Mg Capsule PO 01/24/25 07:59 0.4 mg
DAILY ABDI Administration
Review of Systems
-
History Source: Patient
Constitutional: Reports No Appetite and Fatigue
EENT: Reports No Symptoms
Respiratory: Reports Other (dyspnea)
Cardiac: Reports No Symptoms
GI: Reports No Symptoms
: Reports No Symptoms
Musculoskeletal: Reports No Symptoms
Skin: Reports No Symptoms
Neuro: Reports Dizzy
Psych: Reports No Symptoms
Physical Exam
-
General: No Apparent Distress, Comfortable and Appears Chronically Ill
Cardiology: Normal Sinus Rhythm and Murmur
Pulmonary: Clear
GI: Soft
Skin: Warm and Dry
Psych: Calm
Labs
Lab Results
WBC 4.5 10^3/uL (4.8-10.8) L 12/27/24 02:41
RBC 2.14 10^6/uL (4.70-6.10) L 12/27/24 02:41
Hgb Cancelled 12/27/24 14:00
Hct Cancelled 12/27/24 14:00
MCV 92.1 fL (80.0-94.0) 12/27/24 02:41
MCH 30.8 pg (27.0-31.0) 12/27/24 02:41
MCHC 33.5 g/dL (33.0-37.0) 12/27/24 02:41
RDW 14.5 % (11.5-14.5) 12/27/24 02:41
Plt Count 121 10^3/uL (130-400) L 12/27/24 02:41
MPV 10.3 fL (7.4-10.4) 12/27/24 02:41
Abs Immat Gran (auto) 0.0 10^3/uL (0-0.05) 12/26/24 12:26
Absolute Neuts (auto) 2.8 10^3/uL (1.4-6.5) 12/26/24 12:26
Absolute Lymphs (auto) 0.4 10^3/uL (1.2-3.4) L 12/26/24 12:
Absolute Monos (auto) 0.3 10^3/uL (0.1-0.6) 12/26/24 12:
Absolute Eos (auto) 0.0 10^3/uL (0-0.7) 12/26/24 12:
Absolute Basos (auto) 0.0 10^3/uL (0-0.2) 12/26/24 12:
Immature Gran % 0.3 % (0-0.5) 12/26/24 12:
Neutrophils % 79.1 % (42.2-75.2) H 12/26/24 12:
Lymphocytes % 11.1 % (20.5-51.1) L 12/26/24 12:
Monocytes % 8.6 % (1.7-9.3) 12/26/24 12:
Eosinophils % 0.6 % (0-6) 12/26/24 12:
Basophils % 0.3 % (0-2) 12/26/24 12:
Creatinine 1.1 mg/dL (0.7-1.3) 12/27/24 02:41
Vital Signs
Vital Signs
Temp Pulse Resp BP Pulse Ox
98.1 F 70 20 98/55 92
12/27/24 07:45 12/27/24 07:45 12/27/24 07:45 12/27/24 08:11 12/27/24 07:45
--- NOTE | 2024-12-27 09:03 | W.PN.HOSP.TC ---
Today's Communication/Plan
-
Blood transfusions
Metoprolol discontinued
cont color television console monitor
Colvin CBI NPO after midnight for TURBT as per urology
Cardio to re-assess Raphael type 1 in AM before procedure
Assessment / Plan
Assessment / Plan
Physical Exam
General: No cyanosis or jaundice. pallor noted
HEENT: Throat clear. PERRLA Normocephalic atraumatic, Pale Palpebral conjunctiva
NECK: Supple. No JVD Carotid Bruits
RESPIRATORY: Lungs clear to auscultation. No crackles wheezes stridor
CVS: S1, S2 normal. RRR. Systolic murmur 3/6
ABDOMEN: Soft, non-tender. appears distended. Bowel sounds present
EXTREMITIES: No peripheral cyanosis or edema.
TENDERIZER TENDER: AOx3 conversant coherent
IMPRESSION:
89M CAD CABG HTN HLD pending TAVR remote Hx Prostate Ca p/w exertional dyspnea exercise intolerance weakness dizziness lightheadedness hematuria 1-2 mo duration. Previously able to walk 2 miles daily w/o issues but now unable to do normal
household tasks without significant dizziness. Lives alone. ED eval significant for Hgb 4.[address] abd/pelvis concerning for bladder/renal ca. ST depressions also noted on lateral leads EKG with associate troponin elevation 0.572. Chest pain
free at rest, though does report intermittent chest tightness/pressure sensation unclear frequency/duration. Blood pressure borderline low/hypotensive, otherwise stable respiratory status on room air, non-tachy, afebrile, AOx3 conversant coherent.
PLAN:
#Severe symptomatic Anemia
#CT abd/pelvis concerning for bladder/Lt renal ca
#Hematuria, retention
#Remote hx Prostate Ca
Tele admit
transfused 3PRBC, 2 more PRBC ordered for goal 9-10 in preparation for urology procedure
Urology appreciated Colvin CBI npo after midnight for TURBT
Oncology Eval appreciated
home doxazosin substituted with Flomax during stay
bladder scan prn
#Troponin elevation possibly Non-ischemic AR 2/2 severe anemia as above
#EKG notes lateral ST depressions, currently chest pain free
#Severe , pending TAVR
#Hx CABG
#Hyperlipidemia
Cardio eval appreciated
ASA on hold d/t severe anemia as above
cont statin
Troponin trended
#Bradycardia
#Secondary Heart Block Mobitz type 1
Home Metoprolol discontinued
cont monitoring
#Hx HTN
ACEI on hold d/t borderline low normotension/hypotension
Home Metoprolol discontinued d/t Mobitz type 1 as above
#Leukopenia
resolved
#Mild Hyponatremia
resolved
DVT ppx SCD
DNR
Discussed with patient and patient's son Xu at bedside.
I spent a total of 50 minutes with the patient or on the floor. More than 50% of this time involved counseling and coordination of care.
Anticipated Discharge: > 48 hours
Subjective/Interval History
-
Date of Service: December 27, 2024
No acute distress, appears comfortable, significant symptomatic improvement, pallor resolved. Requiring 2L NC supplementation but otherwise stable respiratory status. Day's events notable for asymptomatic bradycardia Mobitz type 1 secondary AV
block (noted some lightheadedness however this has been present prior and more likely related to severe anemia). Endorses constipation. Colvin CBI in place with punch colored urine. Son Xu present during evaluation.
Objective Data
-
Labs:
Laboratory Results
12/27/24 12/27/24 12/27/24
02:41 02:41 02:41
WBC 4.5 L
Hgb 6.6 L* D Cancelled
Hct 19.7 L* Cancelled
Plt Count 121 L
Sodium 138
Potassium 4.2
Chloride 110 H
Carbon Dioxide 20 L
BUN 27 H
Creatinine 1.1
Glucose 82
Calcium 9.0
12/27/24 12/27/24
08:00 14:00
WBC
Hgb Cancelled Cancelled
Hct Cancelled Cancelled
Plt Count
Sodium
Potassium
Chloride
Carbon Dioxide
BUN
Creatinine
Glucose
Calcium
Vital Signs:
Vital Signs
Temp Pulse Resp BP Pulse Ox
98.1 F 70 20 98/55 92
12/27/24 07:45 12/27/24 07:45 12/27/24 07:45 12/27/24 08:11 12/27/24 07:45
I&O
12/26/24 12/27/24 12/28/24
06:59 06:59 06:59
Intake Total 500 / 500 250 / 250
Output Total 900 / 900
Balance -400 / -400 250 / 250
[2024-12-27 09:25] LABS: Troponin I 2.500 ng/ml
--- NOTE | 2024-12-27 12:39 | PTCARENOTE ---
Approx 1125 pt's heart rhythm became irregular on monitor, it appears patient heart rhythm changed from SR with first degree AV block to a second degree heart block, Mobitz 1. Pt reports feeling lightheaded with sitting up but otherwise
asymptomatic. HR also intermittently going rosemary as low as 40s, was consistently in the 70s. BP stable. and , cardiology made aware. EKG ordered and confirmed heart block. Metoprolol was discontinued. Metoprolol was held this morning
due to BP parameters.
[2024-12-27] MEDS: SENOKOT-S 1 TABLET PO ×2 (14:02→19:54)
[2024-12-27 15:50] LABS: Troponin I 2.000 ng/ml
[2024-12-27 18:35] LABS: Hematocrit 29.2 % (39.0-52.0); Hemoglobin 10.1 g/dL (13.0-18.0)
[2024-12-28] VITALS (20 sets, daily range): BP systolic 100–140; BP diastolic 45–126
[2024-12-28 04:24] LABS: Hematocrit 29.2 % (39.0-52.0); Hemoglobin 10.2 g/dL (13.0-18.0); Mean Corp Hgb Conc. 34.9 g/dL (33.0-37.0); Mean Corpuscular Volume 90.1 fL (80.0-94.0); Platelet Count 122 10^3/uL (130-400); Red Cell Dist. Width 14.6 % (11.5-14.5)
[2024-12-28 04:40] LABS: Blood Urea Nitrogen 21 mg/dl (9-20); Calcium 8.3 mg/dl (8.4-10.2); Carbon Dioxide 20 mmol/L (22-30); Chloride 108 mmol/L (98-107); Estimated Creatinine Clearance 42 ml/min; Glucose 81 mg/dl (70-99); Magnesium 2.2 mg/dl (1.6-2.3); Potassium 4.1 mmol/L (3.5-5.1); Sodium 136 mmol/L (135-145); eGFR > 60.00
--- NOTE | 2024-12-28 05:36 | PTCARENOTE ---
No acute events overnight. CBI running with punch colored output. Am hgb 10.2. Plan for OR today for bladder resection. Patient remained NPO at midnight.
[2024-12-28] MEDS: LR 1000 IV ×2 (05:50→17:21)
[2024-12-28] MEDS: FEOSOL 325 MG PO (09:27)
[2024-12-28] MEDS: FLOMAX 0.4 MG PO (09:28)
[2024-12-28] MEDS: SENOKOT-S 1 TABLET PO ×2 (09:29→19:57)
[2024-12-28] MEDS: LIPITOR 80 MG PO (09:29)
[2024-12-28] MEDS: PROTONIX 40 MG PO (09:29)
--- NOTE | 2024-12-28 09:31 | W.PN.ONC ---
Documented by User: Josefa Mccord DO, Resident 12/28/24 09:36
Today's Communication / Plan
-
- hgb 10.2 today, continue to monitor with daily CBC
- TURBT scheduled today with urology, pending cardiac clearance
- will continue to follow while admitted
Impression
Impression
Hematuria and Bladder Mass
- visualized on CT AP: 3.6 x 1.3 cm exophytic lesion in the posterior aspect of the urinary bladder in the region of the trigone
- urology consulted, TURBT tentatively scheduled for today
Symptomatic Anemia in setting of acute blood loss
- gross hematuria for last 6 weeks
- blood transfusion initiated yesterday
- hgb 10.2 today
Aortic Stenosis with planned TAVR
- cardiology will delay TAVR until after bladder surgery d/t need for anticoagulation after procedure
Plan
Plan
- hgb 10.2 today, continue to monitor with daily CBC
- TURBT scheduled today with urology, pending cardiac clearance
- will continue to follow while admitted
Subjective/Objective
Subjective/Objective
Patient seen today at the bedside. Patient states he is feeling much better. Patient denies all ROS.
Physical:
General: not in acute distress
Cardiovascular: RRR
Respiratory: normal breath sounds
Abdomen: soft, non tender, normal bowel sounds
: pierre in place with dark red, blood tinged urine in bag
Vital Signs:
Vital Signs
Temp Pulse Resp BP Pulse Ox
98.7 F 73 20 123/49 93
12/28/24 07:25 12/28/24 06:00 12/28/24 06:00 12/28/24 06:00 12/28/24 06:00
Lab Results:
Laboratory Data
WBC 7.0 10^3/uL (4.8-10.8) 12/28/24 03:53
Hgb 10.2 g/dL (13.0-18.0) L 12/28/24 03:53
Plt Count 122 10^3/uL (130-400) L 12/28/24 03:53
APTT Cancelled 12/27/24 15:00
eGFR > 60.00 12/28/24 03:53

Documented by User: Thomas Sevilla MD 12/28/24 12:16
Plan
Plan
- hgb 10.2 today, continue to monitor with daily CBC
- TURBT scheduled today with urology, pending cardiac clearance
- will continue to follow while admitted
Oncology/ Hematology Addendum:
Patient seen and evaluated and agree w/ resident note and plan as outlined
-bladder mass - for cytoscopy today - await pathology
-hemoglobin improved
-follow CBC
--- NOTE | 2024-12-28 10:06 | W.PN.HOSP.TC ---
Today's Communication/Plan
-
see s/p
Assessment / Plan
Assessment / Plan
Physical Exam
General: No cyanosis or jaundice. pallor noted
HEENT: Throat clear. PERRLA Normocephalic atraumatic, Pale Palpebral conjunctiva
NECK: Supple. No JVD Carotid Bruits
RESPIRATORY: Lungs clear to auscultation. No crackles wheezes stridor
CVS: S1, S2 normal. RRR. Systolic murmur /
ABDOMEN: Soft, non-tender. appears distended. Bowel sounds present
EXTREMITIES: No peripheral cyanosis or edema.
OPERATIONAL RISK ANALYST: AOx3 conversant coherent
IMPRESSION:
89M CAD CABG HTN HLD pending TAVR remote Hx Prostate Ca p/w exertional dyspnea exercise intolerance weakness dizziness lightheadedness hematuria 1-2 mo duration. Previously able to walk 2 miles daily w/o issues but now unable to do normal
household tasks without significant dizziness. Lives alone. ED eval significant for Hgb 4.[address] abd/pelvis concerning for bladder/renal ca. ST depressions also noted on lateral leads EKG with associate troponin elevation 0.572. Chest pain
free at rest, though does report intermittent chest tightness/pressure sensation unclear frequency/duration. Blood pressure borderline low/hypotensive, otherwise stable respiratory status on room air, non-tachy, afebrile, AOx3 conversant coherent.
PLAN:
#Severe symptomatic Anemia
#CT abd/pelvis concerning for bladder/Lt renal ca
#Hematuria, retention
#Remote hx Prostate Ca
Tele admit
received total 5 PRBC transfusions over two days for goal 9-10 in preparation for urology procedure
Urology appreciated Colvin CBI npo for TURBT today 12/28
Oncology Eval appreciated
home doxazosin substituted with Flomax during stay
#Troponin elevation likely Non-ischemic GA 2/2 severe anemia as above
#EKG notes lateral ST depressions, currently chest pain free
#Severe , pending TAVR
#Hx CABG
#Hyperlipidemia
Cardio eval appreciated
ASA on hold d/t severe anemia as above
cont statin
Troponin trended to peak 2.500 since trended down
#Bradycardia
#Secondary Heart Block Mobitz type 1 resolved
Home Metoprolol discontinued
cont monitoring
#Hx HTN
ACEI on hold d/t borderline low normotension/hypotension
Home Metoprolol discontinued d/t Mobitz type 1 as above
#Leukopenia
resolved
#Mild Hyponatremia
resolved
DVT ppx SCD
DNR
Discussed with patient and patient's son uJs at bedside.
I spent a total of 45 minutes with the patient or on the floor. More than 50% of this time involved counseling and coordination of care.
Anticipated Discharge: 24 - 48 hours
Subjective/Interval History
-
Date of Service: December 28, 2024
No acute distress, sitting up comfortably in bed. Overall reports feeling well. Denies new acute issues. Remains on Hexaformer. son Jus present during evaluation.
Objective Data
-
Labs:
Laboratory Results
12/28/24
03:53
WBC 7.0
Hgb 10.2 L
Hct 29.2 L
Plt Count 122 L
Sodium 136
Potassium 4.1
Chloride 108 H
Carbon Dioxide 20 L
BUN 21 H
Creatinine 1.0
Glucose 81
Calcium 8.3 L
Vital Signs:
Vital Signs
Temp Pulse Resp BP Pulse Ox
98.7 F 73 20 123/49 93
12/28/24 07:25 12/28/24 06:00 12/28/24 06:00 12/28/24 06:00 12/28/24 06:00
I&O
12/27/24 12/28/24 12/29/24
06:59 06:59 06:59
Intake Total 500 / 500 990 / 990
Output Total 900 / 900 -7900 / -7900
Balance -400 / -400 8890 / 8890
--- NOTE | 2024-12-28 11:14 | W.PN.URO.CBU ---
Today's Communication / Plan
-
for op room if ok with cardiology
Assessment / Plan
-
ready for op room from hgb point of view for cardiology clearance for new onset Mobitz1
Diagnosis
-
Date of Service: December 28, 2024
-
Patient Diagnosis:
Post Op Day:
Patient Diagnosis:
Post Op Day:
Patient Diagnosis:remote h/o acp s/p xrt then started having almost daily hematuria after 2024 His local utoligsit tried tx for uti but cx neg and routine appt set up mid december Hematuriapersisted no dysuria no major clots no colic
feels like empties But pt felt weak saw pcp hgb drawn and had hgb 4.[address] scan revealed proba vic cyst no hydro but 4cm bladder mass c/w tcc for turbt today as hgb 10 still hematuria
Post Op Day:
Subjective
-
hematuria persist for op room if cleared by cardilology
Objective
-
Vital Signs
Temp Pulse Resp BP Pulse Ox
98.7 F 73 20 123/49 93
12/28/24 07:25 12/28/24 06:00 12/28/24 06:00 12/28/24 06:00 12/28/24 06:00
Intake and Output
12/27/24 12/28/24 12/29/24
06:59 06:59 06:59
Intake Total 500 / 500 990 / 990
Output Total 900 / 900 -7900 / -7900
Balance -400 / -400 8890 / 8890
Intake:
Oral fluids 240 / 240
Blood Product Amount Infused ( 500 / 500 750 / 750
mL)
Packed Rbc Leukoreduced Unit 250 / 250
[id number]
Packed Rbc Leukoreduced Unit 250 / 250
[id number]
Packed Rbc Leukoreduced Unit 250 / 250
[id number]
Packed Rbc Leukoreduced Unit 0 / 0 500 / 500
[id number]
Output:
Urine, Colvin 900 / 900
True Urine Output from CBI -7900 / -7900
Laboratory Results
12/28/24 03:53
12/28/24 03:53
Review of Systems
-
: Difficulty Voiding and Bleeding
Physical Exam
-
General - well developed, well nourished, no acute distress
Chest - clear bilaterally
Abdomen - soft, non-tender, positive bowel sounds, no CVAT, no incisional pain or distention
Genitalia - normal
Rectal - normal
Skin - warm & dry with no rash
Neuro - AOx3, no motor deficits
Extremities - no clubbing, no cyanosis, no edema
Incision - clean, dry
Dressing - clean, dry, intact
Care Review
Data Reviewed
Discussed with: Hospitalist and Nursing
--- NOTE | 2024-12-28 12:16 | W.PN.CARDCBS ---
Today's Communication / Plan
-
Proceed to the OR for transurethral resection of bladder tumor
Stay off metoprolol
Discussed with surgery and anesthesia as well as hospitalist
Impression / Plan
-
Assessment:
Subacute/acute blood loss anemia, initial Hgb 4.7 on 12/26/24
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
Abnormal CT abdomen/pelvis with bladder lesions concerning for malignancy and possible left kidney complex cyst versus malignant lesion 12/26/2024
Elevated troponin, suspected nonischemic myocardial injury in setting of above
Severe , undergoing TAVR work up
CAD
s/p CABG x2 NICOLAS to LAD and SVG to OM2 2016
s/p cath (TAVR work up) with patient bypass grafts, severe [place] CAD 11/16/24
HTN
HLD
History of prostate cancer s/p radiation therapy
ECHO at [facility] 10/18/24:EF 60%, mild cLVH, grade 1 diastolic dysfunction, Severe with peak/mean gradient 73/37 mmHg LEANNE 0.8 cm�, peak velocity 4.3M/S with dimensionless index of 0.2, mild to mod MR, mild TR, mod WI, PAS 24mmHg, at least
one echolucent structure in hepatic parenchyma likely consistent with hepatic cysts
Echo 12/27/2024: Mild LVH, EF 57%, MAC, mild to moderate mitral regurgitation, dilated left atrium, severe aortic stenosis with trace aortic regurgitation, peak/mean aortic valve gradient 55/31 mmHg, aortic valve area 0.7 cm 2, dimensionless index
0.3, normal RV, preserved RV function, pulmonary artery systolic pressure 42-47 mmHg
Plan:
Despite his aortic stenosis and non-AR myocardial injury from anemia he looks well. There is no evidence of heart failure.
His Mobitz 1 second-degree AV block is markedly improved with withdrawal of metoprolol.
Despite his multiple issues, he seems optimized and his most urgent medical need is resection of his bladder tumor. His cardiac risk remains somewhat elevated, but his functional status prior to the onset of anemia was very good, and he had no
symptoms of bradycardia/heart block.
Proceed as planned to the OR. Discussed best options with anesthesia.
Will continue to follow.
.
Progress Note - Lead Customer Service Representative
Subjective
Date of Service: December 28, 2024:
89-year-old male with admitted with dizziness, lightheadedness and hemoglobin of 4.8 in the setting of hematuria and newly discovered bladder tumor. Currently undergoing evaluation for TAVR.
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
Current meds: Atorvastatin 80 mg a day, iron, tamsulosin 0.4 mg a day, pantoprazole 40 mg a day, lactated Ringer's, metoprolol has been stopped for Mobitz 1 second-degree heart block
123/49, pulse 73, respiratory rate 20, head neck exam unremarkable, lungs are clear, occasional extrasystoles with aortic stenosis murmur across the precordium JVD okay, no significant edema, abdominal exam benign
ECG yesterday sinus rhythm with Mobitz 1 second-degree AV block, nonspecific ST and T changes
Telemetry: Much improved after withdrawal of metoprolol. Rare second-degree AV block seen, patient currently conducting one-to-one at heart rate of 80 without evidence of second-degree AV block
Hemoglobin 10.2, platelets 122, BUN/creatinine 21 and 1.0, troponin is dropping, currently 2, peak was 2.5, potassium is 4.1
Objective
Labs:
12/28/24 03:53
12/28/24 03:53
Labs
Hgb 10.2 g/dL (13.0-18.0) L 12/28/24 03:53
Hct 29.2 % (39.0-52.0) L 12/28/24 03:53
Plt Count 122 10^3/uL (130-400) L 12/28/24 03:53
APTT Cancelled 12/27/24 15:00
Sodium 136 mmol/L (135-145) 12/28/24 03:53
Potassium 4.1 mmol/L (3.5-5.1) 12/28/24 03:53
BUN 21 mg/dl (9-20) H 12/28/24 03:53
Creatinine 1.0 mg/dL (0.7-1.3) 12/28/24 03:53
Glucose 81 mg/dl (70-99) 12/28/24 03:53
Troponins
12/26/24 12/26/24 12/27/24
12:26 21:06 02:41
Troponin I 0.572 H* 0.825 H* 2.030 H* D
12/27/24 12/27/24 12/27/24
06:00 08:49 15:18
Troponin I Cancelled 2.500 H* 2.000 H*
Vital Signs and I&O:
Vital Signs
Temp Pulse Resp BP Pulse Ox
37.6 C 73 20 123/49 93
12/28/24 11:40 12/28/24 06:00 12/28/24 06:00 12/28/24 06:00 12/28/24 06:00
Vital Signs
Temp Pulse Resp BP Pulse Ox
37.6 C 73 20 123/49 93
12/28/24 11:40 12/28/24 06:00 12/28/24 06:00 12/28/24 06:00 12/28/24 06:00
Intake & Output
12/26/24 12/27/24 12/28/24 12/29/24
07:59 07:59 07:59 07:59
Intake Total 750 / 750 740 / 740
Output Total 900 / 900 -7900 / -7900
Balance -150 / -150 8640 / 8640
Physical Exam
Physical Exam
See above
--- NOTE | 2024-12-28 12:25 | CM ---
Patient with Dx Severe symptomatic Anemia s/p transfusions, hematuria w concern for bladder/renal CA, Bradycardia/Heart Block Mobitz 1. Plan TURBT today. O2 2L. Colvin w CBI. Per nurse; A/O, assist of 1/bedrest.
Met with patient, michelle Luu & Xu & SIRISHA Kelly;
the patient resides alone in a 2 story house with 4-5 steps at entrance.
He has been independent in ADLs and ambulation, and active, until 10-14 days ago, when patient reports he became lightheaded and tired, and sometimes needed to use his cane.
Prior to past few weeks patient had been walking 2 miles/day, driving and shopping.
DME - RW, SPC, commode
No prior HH or SNF.
Prior Outpatient PT.
PCP - Susan Lemus
Pharmacy - [facility], [facility]
The sons expressed concern with patient's current functional mobility, which has significantly declined in the last 2 wks. They are hoping patient can work with PT/OT while here to see if he needs rehab---> message to Dr Mejia that patient may
benefit from PT/OT post op/when stable.
Plan follow O2 needs, post op urology needs, mobility needs.
--- NOTE | 2024-12-28 15:43 | W.IMMPOSTOP ---
Surgical Immed Post Op Note
-
Primary Surgeon: Neo
Pre-op Diagnosis:
1. Bladder tumor
2. Hemorrhagic urothelial bleeding w/ clot retention
3. Radiation cystitis
Post-op Diagnosis: Same
Procedure Performed: cystoscopy, clot evacuation, TURBT (2.5 cm)
Anesthesia Type: GETA
Specimen / Cultures: Left trigone bladder tumor/None
Estimated Blood Loss: 100 old clot burden evacuated, 2 cc from procedure
Drains: 22Fr 3-way catheter (30 cc in balloon)
Complications: None
Operative Findings:
1. 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
2. Small, atrophic prostate gland (s/p XRT).
3. >2.0 cm papillary bladder tumor along trigonal ridge surrounding left UO - resected completely.
4. Excellent hemostasis on final cystoscopy.
Son updated post-op via telephone.
--- NOTE | 2024-12-28 16:59 | PTCARENOTE ---
Second set of wipes performed on Pt, as well as catheter care. Rec'd call from OR, sent for TURBT procedure. Rec'd Pt back from PACU post-op, resting comfortably in bed. Denies pain, 3-way pierre in place and CBI running at a slow drip with clear
urine noted in pierre bag. Family present in room, already rec'd update from provider. Pt settled back in room. Will continue to monitor and assess.
--- NOTE | 2024-12-28 21:53 | PTCARENOTE ---
Pt received resting in bed. AAOx3. Ate 100% of dinner. VSS. Afebrile. SR on CM rate 80's. POX 2L NC 94%. CBI infusing to 3way pierre draining pale yellow urine. Pt denies any pain or discomfort. SCD's on after skin check. IVF's infusing as ordered.
Assisting with turns. Rest of assessment as documented. Call christine remains within reach. Will continue to monitor.
[2024-12-29] VITALS (15 sets, daily range): BP systolic 100–147; BP diastolic 49–111; PULSE 84; O2SAT 94
[2024-12-29 03:33] LABS: Hematocrit 30.8 % (39.0-52.0); Hemoglobin 10.4 g/dL (13.0-18.0); Mean Corp Hgb Conc. 33.8 g/dL (33.0-37.0); Mean Corpuscular Volume 91.7 fL (80.0-94.0); Platelet Count 126 10^3/uL (130-400); Red Cell Dist. Width 14.6 % (11.5-14.5)
[2024-12-29 03:58] LABS: Blood Urea Nitrogen 25 mg/dl (9-20); Calcium 8.0 mg/dl (8.4-10.2); Carbon Dioxide 22 mmol/L (22-30); Chloride 109 mmol/L (98-107); Estimated Creatinine Clearance 47 ml/min; Glucose 112 mg/dl (70-99); Magnesium 2.1 mg/dl (1.6-2.3); Potassium 4.2 mmol/L (3.5-5.1); Sodium 137 mmol/L (135-145); eGFR > 60.00
--- NOTE | 2024-12-29 08:28 | W.PN.HOSP.TC ---
Today's Communication/Plan
-
Colvin CBI as per Urology
monitor H&H
PT/OT
Incentive Spirometer, wean O2 supplementation as tolerated
bowel regimen
Assessment / Plan
Assessment / Plan
Physical Exam
General: No pallor, cyanosis, or jaundice
HEENT: Throat clear. PERRLA Normocephalic atraumatic
NECK: Supple. No JVD Carotid Bruits
RESPIRATORY: Lungs clear to auscultation. No crackles wheezes stridor
CVS: S1, S2 normal. RRR. Systolic murmur 3/6
ABDOMEN: Soft, non-tender. appears distended. Bowel sounds present
: Colvin CBI present clear yellow urine
EXTREMITIES: No peripheral cyanosis or edema.
TECHNOLOGY EDUCATION INSTRUCTOR: AOx3 conversant coherent
IMPRESSION:
89M CAD CABG HTN HLD pending TAVR remote Hx Prostate Ca p/w exertional dyspnea exercise intolerance weakness dizziness lightheadedness hematuria 1-2 mo duration. Previously able to walk 2 miles daily w/o issues but now unable to do normal
household tasks without significant dizziness. Lives alone. ED eval significant for Hgb 4.[address] abd/pelvis concerning for bladder/renal ca. ST depressions also noted on lateral leads EKG with associate troponin elevation 0.572. Chest pain
free at rest, though does report intermittent chest tightness/pressure sensation unclear frequency/duration. Blood pressure borderline low/hypotensive, otherwise stable respiratory status on room air, non-tachy, afebrile, AOx3 conversant coherent.
PLAN:
#Severe symptomatic Anemia
#CT abd/pelvis concerning for bladder/Lt renal ca
#Hematuria, retention
#Remote hx Prostate Ca
Tele admit
received total 5 PRBC transfusions over two days for goal 9-10 in preparation for urology procedure
Urology appreciated Colvin CBI, completed TURBT 12/28, Complex Lt renal cyst vs solid mass unlikely related to any acute issues - can have further outpatient imaging with renal protocol CT or MRI
Oncology Eval appreciated
home doxazosin substituted with Flomax during stay
#Troponin elevation likely Non-ischemic MS 2/2 severe anemia as above
#EKG notes lateral ST depressions, currently chest pain free
#Severe , pending TAVR
#Hx CABG
#Hyperlipidemia
Cardio eval appreciated
ASA on hold d/t severe anemia as above
cont statin
Troponin trended to peak 2.500 since trended down
#Bradycardia
#Secondary Heart Block Mobitz type 1 resolved
Home Metoprolol discontinued
cont monitoring
#Hx HTN
ACEI on hold d/t borderline low normotension/hypotension
Home Metoprolol discontinued d/t Mobitz type 1 as above
#Leukopenia
resolved
#Mild Hyponatremia
resolved
#Constipation
cont bowel regimen colace sennoside, miralax added
PT/OT appreciated SNF rehab vs home services
DVT ppx SCD
DNR
Discussed with patient, patient's son Jus, and patient's daughter in law Gypsy
I spent a total of 45 minutes with the patient or on the floor. More than 50% of this time involved counseling and coordination of care.
Anticipated Discharge: 24 - 48 hours
Subjective/Interval History
-
Date of Service: December 29, 2024
No acute distress, overall reports feeling well. Denies new acute issues. Hematuria resolved on Colvin and CBI. Constipation persists.
Objective Data
-
Labs:
Laboratory Results
12/29/24
03:09
WBC 6.8
Hgb 10.4 L
Hct 30.8 L
Plt Count 126 L
Sodium 137
Potassium 4.2
Chloride 109 H
Carbon Dioxide 22
BUN 25 H
Creatinine 0.9
Glucose 112 H
Calcium 8.0 L
Vital Signs:
Vital Signs
Temp Pulse Resp BP Pulse Ox
98.3 F 75 19 131/72 94
12/29/24 07:23 12/29/24 06:00 12/29/24 06:00 12/29/24 06:00 12/29/24 06:00
I&O
12/28/24 12/29/24 12/30/24
06:59 06:59 06:59
Intake Total 990 / 990 75 / 75
Output Total -7900 / -7900 1000 / 1000
Balance 8890 / 8890 -925 / -925
[2024-12-29] MEDS: SENOKOT-S 1 TABLET PO ×2 (08:58→20:06)
[2024-12-29] MEDS: FLOMAX 0.4 MG PO (08:58)
[2024-12-29] MEDS: FEOSOL 325 MG PO (08:58)
[2024-12-29] MEDS: LIPITOR 80 MG PO (08:58)
[2024-12-29] MEDS: PROTONIX 40 MG PO (08:58)
--- NOTE | 2024-12-29 10:01 | W.PN.CARDCBS ---
Today's Communication / Plan
-
Doing well despite aortic stenosis
Continue current regimen
Okay for discharge planning from cardiac standpoint
Eventual restart of aspirin
Continue TAVR workup as outpatient
Impression / Plan
-
Assessment:
Subacute/acute blood loss anemia, initial Hgb 4.7 on 12/26/24
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
Abnormal CT abdomen/pelvis with bladder lesions concerning for malignancy and possible left kidney complex cyst versus malignant lesion 12/26/2024
Elevated troponin, suspected nonischemic myocardial injury in setting of above
Severe , undergoing TAVR work up
CAD
s/p CABG x2 NICOLAS to LAD and SVG to OM2 2016
s/p cath (TAVR work up) with patient bypass grafts, severe [place] CAD 11/16/24
HTN
HLD
History of prostate cancer s/p radiation therapy
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
ECHO at [facility] 10/18/24:EF 60%, mild cLVH, grade 1 diastolic dysfunction, Severe with peak/mean gradient 73/37 mmHg LEANNE 0.8 cm�, peak velocity 4.3M/S with dimensionless index of 0.2, mild to mod MR, mild TR, mod NC, PAS 24mmHg, at least
one echolucent structure in hepatic parenchyma likely consistent with hepatic cysts
Echo 12/27/2024: Mild LVH, EF 57%, MAC, mild to moderate mitral regurgitation, dilated left atrium, severe aortic stenosis with trace aortic regurgitation, peak/mean aortic valve gradient 55/31 mmHg, aortic valve area 0.7 cm 2, dimensionless index
0.3, normal RV, preserved RV function, pulmonary artery systolic pressure 42-47 mmHg
Plan:
At this point he seems stable from a cardiac standpoint, and second degree heart block is currently not present.
Volume status looks good.
Aortic stenosis is unchanged. He tolerated surgery very well.
Continue to hold benazepril, doxazosin and metoprolol. Eventual restart of benazepril, possibly doxazosin.
Would not restart metoprolol.
Restart aspirin when okay with urology.
From cardiac standpoint, can proceed with discharge planning, and we will resume TAVR evaluation as outpatient.
Progress Note - Home Day Care Provider
Subjective
Date of Service: December 29, 2024:
89-year-old male with admitted with dizziness, lightheadedness and hemoglobin of 4.8 in the setting of hematuria and newly discovered bladder tumor. Currently undergoing evaluation for TAVR.
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
PMH: PPN
Current medications: Torvastatin 80 mg a day, iron, tamsulosin, pantoprazole 40 mg a day, Senokot, polyethylene,
aspirin on hold, benazepril on hold, doxazosin on hold, metoprolol stopped
131/72, pulse 75, respiratory rate 19, afebrile, Weight is not current, he feels better, lungs are clear, aortic stenosis murmur, abdomen benign, bladder irrigation in progress, no edema, JVD okay
Hemoglobin 10.4, BUN and creatinine are 25 and 0.9
Telemetry: No further heart block
Objective
Labs:
12/29/24 03:09
12/29/24 03:09
Labs
Hgb 10.4 g/dL (13.0-18.0) L 12/29/24 03:09
Hct 30.8 % (39.0-52.0) L 12/29/24 03:09
Plt Count 126 10^3/uL (130-400) L 12/29/24 03:09
APTT Cancelled 12/27/24 15:00
Sodium 137 mmol/L (135-145) 12/29/24 03:09
Potassium 4.2 mmol/L (3.5-5.1) 12/29/24 03:09
BUN 25 mg/dl (9-20) H 12/29/24 03:09
Creatinine 0.9 mg/dL (0.7-1.3) 12/29/24 03:09
Glucose 112 mg/dl (70-99) H 12/29/24 03:09
Troponins
12/26/24 12/26/24 12/27/24
21:06 02:41
Troponin I 0.572 H* 0.825 H* 2.030 H* D
12/27/24 12/27/24 12/27/24
06:00 08:49 15:18
Troponin I Cancelled 2.500 H* 2.000 H*
Vital Signs and I&O:
Vital Signs
Temp Pulse Resp BP Pulse Ox
36.8 C 75 19 131/72 94
12/29/24 07:23 12/29/24 06:00 12/29/24 06:00 12/29/24 06:00 12/29/24 06:00
Vital Signs
Temp Pulse Resp BP Pulse Ox
36.8 C 75 19 131/72 94
12/29/24 07:23 12/29/24 06:00 12/29/24 06:00 12/29/24 06:00 12/29/24 06:00
Intake & Output
12/27/24 12/28/24 12/29/24 12/30/24
07:59 07:59 07:59 07:59
Intake Total 750 / 750 740 / 740 75 / 75
Output Total 900 / 900 -7900 / -7900 1000 / 1000
Balance -150 / -150 8640 / 8640 -925 / -925
Physical Exam
Physical Exam
See above
[2024-12-29 10:37] LABS: Vitamin D, 25-OH*** 20.2 ng/mL (30-80)
[2024-12-29] MEDS: MIRALAX 17 GRAMS PO (10:47)
--- NOTE | 2024-12-29 11:22 | W.PN.URO.CBU ---
Today's Communication / Plan
-
Cap CBI
Trial of void tomorrow
Assessment / Plan
-
89M with symptomatic anemia from gross hematuria, 3cm posterior wall bladder tumor
Hx of radiation for remote prostate cancer
Incidentally noted indeterminate 3cm L renal mass
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
- Hematuria resolved this AM on slow CBI
- Cap CBI today
- Likely trial of void tomorrow - no voiding difficulties at baseline
- Complex renal cyst vs solid mass unlikely related to any acute issues - can have further outpatient imaging with renal protocol CT or MRI
- HGB stable post op
Diagnosis
-
Date of Service: December 29, 2024
-
Patient Diagnosis:remote h/o acp s/p xrt then started having almost daily hematuria after memotrial day 2024 His local utoligsit tried tx for uti but cx neg and routine appt set up mid december Hematuriapersisted no dysuria no major clots no colic
feels like empties But pt felt weak saw pcp hgb drawn and had hgb 4.[address] scan revealed proba vic cyst no hydro but 4cm bladder mass c/w tcc for turbt today as hgb 10 still hematuria
Gross hematuria
Bladder tumor
L renal mass/complex cyst
Post Op s/p TURBT 12/28/24
Subjective
-
feeling well
resolved hematuria
Objective
-
Vital Signs
Temp Pulse Resp BP Pulse Ox
98.3 F 75 19 131/72 97
12/29/24 07:23 12/29/24 06:00 12/29/24 06:00 12/29/24 06:00 12/29/24 10:36
Intake and Output
12/28/24 12/29/24 12/30/24
06:59 06:59 06:59
Intake Total 990 / 990 75 / 75
Output Total -7900 / -7900 1000 / 1000
Balance 8890 / 8890 -925 / -925
Intake:
Oral fluids 240 / 240
IV fluids (Total) 75 / 75
normosol 75 / 75
Blood Product Amount Infused ( 750 / 750
mL)
Packed Rbc Leukoreduced Unit 250 / 250
[id number]
Packed Rbc Leukoreduced Unit 500 / 500
[id number]
Output:
True Urine Output from CBI -7900 / -7900 1000 / 1000
Laboratory Results
12/29/24 03:09
12/29/24 03:09
Physical Exam
-
General - well developed, well nourished, no acute distress
Chest - clear bilaterally
Abdomen - soft, non-tender, positive bowel sounds, no CVAT, no incisional pain or distention
Colvin in place, clear urine
--- NOTE | 2024-12-29 16:28 | PTCARENOTE ---
Assumed care of Pt at shift change; Pt resting comfortably in bed with CBI running at slow drip; Urine in pierre bag a pale yellow color. Rec'd orders to d/c CBI - disconnected and capped. Pt OOB to chair with assist; Pt weaned to room air with
SpO2 ~ 93-95%; Later in shift, assisted Pt to walk in hallway with standby assist and rolling walker. Will continue to monitor and assess.
--- NOTE | 2024-12-29 22:20 | PTCARENOTE ---
Pt received at beginning of shift resting in bed. AAOx3. Denies any pain or discomfort. Colvin draining clear yellow urine. CBI capped on day shift. SR/1degree/PQT on CM rate 80's. Afebrile. POX RA 89-92%. Rest of assessment as documented. Call christine
within reach. Will continue to monitor.
[2024-12-30] VITALS (11 sets, daily range): BP systolic 104–142; BP diastolic 51–106
[2024-12-30 03:39] LABS: Hematocrit 28.6 % (39.0-52.0); Hemoglobin 9.5 g/dL (13.0-18.0); Mean Corp Hgb Conc. 33.2 g/dL (33.0-37.0); Mean Corpuscular Volume 93.2 fL (80.0-94.0); Platelet Count 105 10^3/uL (130-400); Red Cell Dist. Width 14.6 % (11.5-14.5)
[2024-12-30 04:05] LABS: Blood Urea Nitrogen 22 mg/dl (9-20); Calcium 8.2 mg/dl (8.4-10.2); Carbon Dioxide 26 mmol/L (22-30); Chloride 109 mmol/L (98-107); Estimated Creatinine Clearance 52 ml/min; Glucose 96 mg/dl (70-99); Magnesium 2.1 mg/dl (1.6-2.3); Potassium 4.2 mmol/L (3.5-5.1); Sodium 136 mmol/L (135-145); eGFR > 60.00
--- NOTE | 2024-12-30 08:01 | W.PN.HOSP.TC ---
Today's Communication/Plan
-
stable for downgrade to Tele
daily weight I/O
trial of void as per Urology
Monitor respiratory status, consider low dose Lasix if patient requiring oxygen again or develops SOB at rest.
Monitor H&H
PT/OT
bowel regimen
Assessment / Plan
Assessment / Plan
Physical Exam
General: No pallor, cyanosis, or jaundice
HEENT: Throat clear. PERRLA Normocephalic atraumatic
NECK: Supple. No JVD Carotid Bruits
RESPIRATORY: Lungs clear to auscultation. No crackles wheezes stridor stable respiratory status on room air
CVS: S1, S2 normal. RRR. Systolic murmur /
ABDOMEN: Soft, non-tender. non-distended. Bowel sounds present
: off Colvin, trial of void
EXTREMITIES: No peripheral cyanosis or edema.
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
IMPRESSION:
89M CAD CABG HTN HLD pending TAVR remote Hx Prostate Ca p/w exertional dyspnea exercise intolerance weakness dizziness lightheadedness hematuria 1-2 mo duration. Previously able to walk 2 miles daily w/o issues but now unable to do normal
household tasks without significant dizziness. Lives alone. ED eval significant for Hgb 4.[address] abd/pelvis concerning for bladder/renal ca. ST depressions also noted on lateral leads EKG with associate troponin elevation 0.572. Chest pain
free at rest, though did report intermittent chest tightness/pressure sensation unclear frequency/duration. AOx3 conversant coherent.
PLAN:
#Severe symptomatic Anemia
#CT abd/pelvis concerning for bladder/Lt renal ca
#Hematuria, retention
#Remote hx Prostate Ca
Tele admit
received total 5 PRBC transfusions over two days for goal 9-10 in preparation for urology procedure
Urology appreciated Colvin CBI, completed TURBT 12/28, Complex Lt renal cyst vs solid mass unlikely related to any acute issues - can have further outpatient imaging with renal protocol CT or MRI
Colvin discontinued TOV 12/30 as per Urology
Oncology Eval appreciated
home doxazosin substituted with Flomax during stay
#Iron Deficiency Anemia likely 2/2 Acute Blood Loss
cont Iron supplementation
#Troponin elevation likely Non-ischemic [place] 2/2 severe anemia as above
#EKG notes lateral ST depressions, currently chest pain free
#Severe , pending TAVR
#Hx CABG
#Hyperlipidemia
Cardio eval appreciated
ASA on hold d/t severe anemia as above
cont statin
Troponin trended to peak 2.500 since trended down
Acute Hypoxic Insufficiency
-incentive spirometer
-CXR small b/l pleural effusions, mild interstitial edema
-BNP 6160
- daily weight I/O
-Possible Acute HFpEF vs Iatrogenic Fluid overload/TACO d/t multiple transfusions
-patient however already weaned off oxygen supplementation to room air, defer to cardio regarding possible need for diuresis
#Bradycardia
#Secondary Heart Block Mobitz type 1 resolved
Home Metoprolol discontinued
cont monitoring
#Hx HTN
ACEI on hold d/t borderline low normotension/hypotension
Home Metoprolol discontinued d/t Mobitz type 1 as above
#Leukopenia
resolved
#Mild Hyponatremia
resolved
#Constipation
cont bowel regimen colace sennoside miralax
resolved
PT/OT appreciated SNF rehab vs home services
DVT ppx SCD
DNR
Stable for downgrade to Tele
Discussed with patient and patient's son Jus
I spent a total of 45 minutes with the patient or on the floor. More than 50% of this time involved counseling and coordination of care.
Anticipated Discharge: 24 - 48 hours
Subjective/Interval History
-
Date of Service: December 30, 2024
No acute distress, appears comfortable at this time, weaned off oxygen supplementation, stable respiratory status on room air. Overall reports feeling well, constipation resolved. Marii discontinued for trial of void. Denies new acute issues.
Objective Data
-
Labs:
Laboratory Results
12/30/24
03:16
WBC 5.9
Hgb 9.5 L
Hct 28.6 L
Plt Count 105 L
Sodium 136
Potassium 4.2
Chloride 109 H
Carbon Dioxide 26
BUN 22 H
Creatinine 0.8
Glucose 96
Calcium 8.2 L
Vital Signs:
Vital Signs
Temp Pulse Resp BP Pulse Ox
98.7 F 73 17 142/63 95
12/30/24 03:27 12/30/24 04:00 12/30/24 04:00 12/30/24 04:00 12/30/24 04:00
I&O
12/29/24 12/30/24 12/31/24
06:59 06:59 06:59
Intake Total 75 / 75 480 / 480
Output Total 1000 / 1000 875 / 875
Balance -925 / -925 -395 / -395
--- NOTE | 2024-12-30 08:56 | W.PN.URO.CBU ---
Today's Communication / Plan
-
remove pierre for trial of void
PVR bladder scan
Outpatient follow up for pathology review and next steps
Assessment / Plan
-
89M with symptomatic anemia from gross hematuria, 3cm posterior wall bladder tumor
Hx of radiation for remote prostate cancer
Incidentally noted indeterminate 3cm L renal mass
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
- Hematuria resolved off CBI
- HGB stable post op
- Trial of void today - no voiding difficulties at baseline
- Complex renal cyst vs solid mass unlikely related to any acute issues - can have further outpatient imaging with renal protocol CT or MRI
Diagnosis
-
Date of Service: December 30, 2024
-
Patient Diagnosis:
Gross hematuria
Bladder tumor
L renal mass/complex cyst
Post Op s/p TURBT 12/28/24
Subjective
-
urine clear
feeling well
had some small BMs
Objective
-
Vital Signs
Temp Pulse Resp BP Pulse Ox
97.8 F 73 17 142/63 95
12/30/24 07:18 12/30/24 04:00 12/30/24 04:00 12/30/24 04:00 12/30/24 04:00
Intake and Output
12/29/24 12/30/24 12/31/24
06:59 06:59 06:59
Intake Total 75 / 75 480 / 480
Output Total 999 / 1000
Balance -925 / -925 -395 / -395
Intake:
Oral fluids 480 / 480
IV fluids (Total) 75 / 75
normosol 75 / 75
Output:
Urine, Pierre
True Urine Output from CBI 1000 / 1000
Laboratory Results
12/30/24 03:16
12/30/24 03:16
Physical Exam
-
General - well developed, well nourished, no acute distress
Chest - clear
Pierre in place clear urine
[2024-12-30] MEDS: FEOSOL 325 MG PO (10:04)
[2024-12-30] MEDS: LIPITOR 80 MG PO (10:04)
[2024-12-30] MEDS: SENOKOT-S 1 TABLET PO ×2 (10:04→19:58)
[2024-12-30] MEDS: FLOMAX 0.4 MG PO (10:04)
[2024-12-30] MEDS: MIRALAX 17 GRAMS PO (10:04)
[2024-12-30] MEDS: PROTONIX 40 MG PO (10:04)
--- NOTE | 2024-12-30 11:13 | W.PN.CARDCBS ---
Today's Communication / Plan
-
Check proBNP
Consider diuretic
Impression / Plan
-
Assessment:
Subacute/acute blood loss anemia, initial Hgb 4.7 on 12/26/24
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
Abnormal CT abdomen/pelvis with bladder lesions concerning for malignancy and possible left kidney complex cyst versus malignant lesion 12/26/2024
Elevated troponin, suspected nonischemic myocardial injury in setting of above
Severe , undergoing TAVR work up
CAD
s/p CABG x2 NICOLAS to LAD and SVG to OM2 2016
s/p cath (TAVR work up) with patient bypass grafts, severe [place] CAD 11/16/24
HTN
HLD
History of prostate cancer s/p radiation therapy
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
ECHO at [facility] 10/18/24:EF 60%, mild cLVH, grade 1 diastolic dysfunction, Severe with peak/mean gradient 73/37 mmHg LEANNE 0.8 cm�, peak velocity 4.3M/S with dimensionless index of 0.2, mild to mod MR, mild TR, mod KS, PAS 24mmHg, at least
one echolucent structure in hepatic parenchyma likely consistent with hepatic cysts
Echo 12/27/2024: Mild LVH, EF 57%, MAC, mild to moderate mitral regurgitation, dilated left atrium, severe aortic stenosis with trace aortic regurgitation, peak/mean aortic valve gradient 55/31 mmHg, aortic valve area 0.7 cm 2, dimensionless index
0.3, normal RV, preserved RV function, pulmonary artery systolic pressure 42-47 mmHg
Plan:
Severe aortic stenosis: Overall stable, no changes required
Hypertension: Blood pressure is reasonably controlled, benazepril doxazosin, and metoprolol still on hold
Mobitz 1 heart block: Resolved with discontinuation of metoprolol
Bladder tumor/hematuria: Successfully resected, restart aspirin when okay with urology
Anemia: Hemoglobin stable and acceptable
Mild dyspnea: Some concerns regarding HFpEF, will recheck proBNP. proBNP was 3970 on admission, check chest x-ray not performed during his hospital stay
Progress Note - Oracle Database Manager
Subjective
Date of Service: December 30, 2024:
89-year-old male with admitted with dizziness, lightheadedness and hemoglobin of 4.8 in the setting of hematuria and newly discovered bladder tumor. Currently undergoing evaluation for TAVR.
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
Current medications: Atorvastatin 80 mg a day, iron 325 mg daily, tamsulosin 0.4 mg daily, pantoprazole 40 mg a day, MiraLAX, Senokot, vitamin D
142/63, pulse 73, respiratory rate 17, afebrile, sats are 95%, no recent weights, complaining of mild dyspnea, lungs still predominantly clear, neck veins not significantly elevated, severe aortic stenosis murmur, not much edema
Hemoglobin 9.5, platelets are 105, had been 126, BUN and creatinine are 22 and 0.8, and admission proBNP was 3970, peak troponin was 2.5
Telemetry: No second-degree heart block seen, periods of marked sinus arrhythmia, heart rate adequate
Objective
Labs:
12/30/24 03:16
12/30/24 03:16
Labs
Hgb 9.5 g/dL (13.0-18.0) L 12/30/24 03:16
Hct 28.6 % (39.0-52.0) L 12/30/24 03:16
Plt Count 105 10^3/uL (130-400) L 12/30/24 03:16
APTT Cancelled 12/27/24 15:00
Sodium 136 mmol/L (135-145) 12/30/24 03:16
Potassium 4.2 mmol/L (3.5-5.1) 12/30/24 03:16
BUN 22 mg/dl (9-20) H 12/30/24 03:16
Creatinine 0.8 mg/dL (0.7-1.3) 12/30/24 03:16
Glucose 96 mg/dl (70-99) 12/30/24 03:16
Troponins
12/27/24
15:18
Troponin I 2.000 H*
Vital Signs and I&O:
Vital Signs
Temp Pulse Resp BP Pulse Ox
36.6 C 73 17 142/63 95
12/30/24 07:18 12/30/24 04:00 12/30/24 04:00 12/30/24 04:00 12/30/24 04:00
Vital Signs
Temp Pulse Resp BP Pulse Ox
36.6 C 73 17 142/63 95
12/30/24 07:18 12/30/24 04:00 12/30/24 04:00 12/30/24 04:00 12/30/24 04:00
Intake & Output
12/28/24 12/29/24 12/30/24 12/31/24
07:59 07:59 07:59 07:59
Intake Total 740 / 740 75 / 75 480 / 480
Output Total -7900 / -7900 1000 / 1000 875 / 875
Balance 8640 / 8640 -925 / -925 -395 / -395
Physical Exam
Physical Exam
See above
[2024-12-30] MEDS: VITAMIN D3 (cholecalciferol) 25 MCG PO (12:53)
[2024-12-30 12:58] LABS: Folate 14.0 ng/ml (2.76-20); Vitamin B12 > 1000 pg/ml (239-931)
[2024-12-30 13:26] LABS: Reticulocyte Count 1.9 % (0.4-2.8)
--- NOTE | 2024-12-30 14:03 | PTCARENOTE ---
Pt received orders to transfer to tele; Report given to RN on ; Informed Pt of transfer and contacted Pt's brother Jus to report new room number; Transported to Rm #[id number].
--- NOTE | 2024-12-30 14:05 | PTCARENOTE ---
Received pt from IMU via wheelchair. AAOx3. Wheelchair placed next to bed, pt ambulated to bed with assist x1. environmental monitoring specialist placed. Assessed and oriented to room. Family member at bedside. Call christine within close reach.
[2024-12-30 14:21] LABS: Iron 33 ug/dl (49-181)
[2024-12-30 14:28] LABS: Ferritin 36.2 ng/ml (17.9-464.0)
[2024-12-30 14:31] LABS: Total Iron Binding Capacity 305 ug/dl (261-462)
--- NOTE | 2024-12-30 14:41 | CM ---
Patient with Dx anemia who is s/p TURBT. Transfer from IMU to 3W today. Room air. Colvin out today - trial of void. PT recommends SNF vs HH. OT recommends skilled rehab. Per nurse; A/O.
Spoke with patient's son Jus; discussed short term SNF for rehab. Son at bedside spoke with patient who agreed. SNF facilities in [place] reviewed and provided [facility] ratings. Son would like referrals to [facility] and [facility]. Answered Jus's questions about insurance auth process for SNF.
SNF referrals placed.
Plan follow up SNF referrals.
[2024-12-30 14:55] LABS: INR 1.22; PT 15.6 Sec (11.4-14.6)
[2024-12-30 14:56] LABS: APTT 33.4 Sec (23.4-35.0)
--- NOTE | 2024-12-30 16:27 | W.PN.ONC2 ---
Today's Communication / Plan
-
Iron studies and coags sent today.
Slight dip noted in Hgb, pt denies bleeding.
SLightly slow platelet count as well, will follow.
Impression
Impression
Hematuria and Bladder Mass
- visualized on CT AP: 3.6 x 1.3 cm exophytic lesion in the posterior aspect of the urinary bladder in the region of the trigone
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
- >2 cm bladder tumor was resected completely, nothing listed as pending under Pathology
Symptomatic Anemia in setting of acute blood loss
- gross hematuria for last 6 weeks
- blood transfusion initiated yesterday
- hgb 10.2 today
Aortic Stenosis with planned TAVR
- cardiology will delay TAVR until after bladder surgery d/t need for anticoagulation after procedure
Plan
Plan
Iron studies and coags sent today.
Slight dip noted in Hgb, pt denies bleeding.
SLightly slow platelet count as well, will follow.
Subjective/Objective
Chief Complaint
Heme/Onco follow up of hematuria, bladder mass and symptomatic anemia
Subjective
Denies current complaint. Colvin removed earlier this morning.
Vital Signs:
Vital Signs
Temp Pulse Resp BP Pulse Ox
98.5 F 78 17 135/76 94
12/30/24 14:14 12/30/24 14:14 12/30/24 14:14 12/30/24 14:14 12/30/24 14:14
Lab Results:
Laboratory Data
WBC 5.9 10^3/uL (4.8-10.8) 12/30/24 03:16
Hgb 9.5 g/dL (13.0-18.0) L 12/30/24 03:16
Plt Count 105 10^3/uL (130-400) L 12/30/24 03:16
PT 15.6 Sec (11.4-14.6) H 12/30/24 14:37
INR 1.22 12/30/24 14:37
APTT 33.4 Sec (23.4-35.0) 12/30/24 14:37
eGFR > 60.00 12/30/24 03:16
Physical Exam
Awake, alert, non-toxic
HEENT: Moist Mucous Membranes; No Jaundice
Cardiology: Normal Sinus Rhythm, S1, S2 and Murmur
Pulmonary: Clear
GI: Soft
Extremities: No C/C/E
Neuro: Non Focal
Review of Systems
Review of Systems
negative except as per HPI
Orders
Orders
Orders From Last 24 Hours
12/30/24 14:37
Erythropoietin (EPO) [S] Routine
Protime/PTT Routine
[2024-12-31] VITALS (7 sets, daily range): BP systolic 107–168; BP diastolic 51–76; PULSE 76; O2SAT 96; BMI 22.2
[2024-12-31 06:11] LABS: Blood Urea Nitrogen 18 mg/dl (9-20); Calcium 8.5 mg/dl (8.4-10.2); Carbon Dioxide 25 mmol/L (22-30); Chloride 109 mmol/L (98-107); Estimated Creatinine Clearance 60 ml/min; Glucose 93 mg/dl (70-99); Magnesium 2.1 mg/dl (1.6-2.3); Potassium 4.0 mmol/L (3.5-5.1); Sodium 137 mmol/L (135-145); eGFR > 60.00
[2024-12-31 06:20] LABS: Hematocrit 30.3 % (39.0-52.0); Hemoglobin 10.1 g/dL (13.0-18.0); Mean Corp Hgb Conc. 33.3 g/dL (33.0-37.0); Mean Corpuscular Volume 93.2 fL (80.0-94.0); Platelet Count 118 10^3/uL (130-400); Red Cell Dist. Width 14.3 % (11.5-14.5)
--- NOTE | 2024-12-31 08:18 | W.PN.URO.CBU ---
Today's Communication / Plan
-
Passed trial of void
okay to resume aspirin
Stable for discharge from standpoint
Outpatient follow up with Dr. Wells or Neo after discharge
Assessment / Plan
-
89M with symptomatic anemia from gross hematuria, 3cm posterior wall bladder tumor
Hx of radiation for remote prostate cancer
Incidentally noted indeterminate 3cm L renal mass
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
- Voiding without difficulty post trial of void 12/30
- Moderate PVR 140cc is acceptable
- Hematuria resolved, HGB stable
- Okay to resume aspirin
- Complex renal cyst vs solid mass unlikely related to any acute issues - can have further outpatient imaging with renal protocol CT or MRI
Stable for discharge from standpoint
Outpatient follow up with Dr. Wells or Neo after discharge
Diagnosis
-
Date of Service: December 31, 2024
-
Patient Diagnosis:
Gross hematuria
Bladder tumor
L renal mass/complex cyst
Post Op s/p TURBT 12/28/24
Subjective
-
Voiding without difficulty since pierre removal
voided 4 times
no pain, straining, dysuria
urine clear
PVR 140cc
Objective
-
Vital Signs
Temp Pulse Resp BP Pulse Ox
99 F 71 22 139/66 92
12/31/24 07:56 12/31/24 07:56 12/31/24 07:56 12/31/24 07:56 12/31/24 07:56
Intake and Output
12/30/24 12/31/24 01/01/25
06:59 06:59 06:59
Intake Total 480 / 480 960 / 960
Output Total 875 / 875 450 / 450
Balance -395 / -395 510 / 510
Intake:
Oral fluids 480 / 480 960 / 960
Output:
Urine, Pierre 875 / 875
Urine, Voided 450 / 450
Other:
How many times incontinent 1
SMALL amount urine
How many times incontinent 1
MODERATE amount urine
How many times incontinent 1
SATURATED amount urine
Laboratory Results
12/31/24 05:28
12/31/24 05:28
Physical Exam
-
General - well developed, well nourished, no acute distress
Chest - clear
Abdomen - soft, non-tender
[2024-12-31] MEDS: PROTONIX 40 MG PO (08:25)
[2024-12-31] MEDS: MIRALAX 17 GRAMS PO (08:25)
[2024-12-31] MEDS: SENOKOT-S 1 TABLET PO ×2 (08:25→19:22)
[2024-12-31] MEDS: VITAMIN D3 (cholecalciferol) 25 MCG PO (08:25)
[2024-12-31] MEDS: FLOMAX 0.4 MG PO (08:26)
[2024-12-31] MEDS: FEOSOL 325 MG PO (08:26)
[2024-12-31] MEDS: LIPITOR 80 MG PO (08:26)
--- NOTE | 2024-12-31 09:12 | W.PN.ONC ---
Today's Communication / Plan
-
Cogulation panel: PT 15.6, APTT 33.4, INR 1.22
Hgb 10.1 today from 9.5 yesterday
Plt 118 today from 105 yesterday
Iron studies showed iron deficiency (Iron Studies: iron 33, TIBC 305, ferritin 36.2). IV iron order entered
Will continue to follow while patient is admitted.
Impression
Impression
Hematuria and Bladder Mass
- visualized on CT AP: 3.6 x 1.3 cm exophytic lesion in the posterior aspect of the urinary bladder in the region of the trigone
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
- >2 cm bladder tumor was resected completely, path pending
Symptomatic Anemia in setting of acute blood loss
- gross hematuria for last 6 weeks
- blood transfusion initiated last week
- hgb 10.1 today
- plt 118
Aortic Stenosis with planned TAVR
- cardiology will delay TAVR until after bladder surgery d/t need for anticoagulation after procedure
Plan
Plan
Cogulation panel: PT 15.6, APTT 33.4, INR 1.22
Hgb 10.1 today from 9.5 yesterday
Plt 118 today from 105 yesterday
Iron studies showed iron deficiency (Iron Studies: iron 33, TIBC 305, ferritin 36.2). IV iron order entered
Will continue to follow while patient is admitted.
Subjective/Objective
Subjective/Objective
Patient seen at the bedside this morning. He states he is doing okay but is not sleeping well here and is not getting to move around as much as he would like. Patient denies all ROS otherwise. Patient has not noticed any hematuria since Tuesday.
General: AAOx3, not in acute distress
Cardiovascular: RRR. murmur appreciated
Respiratory: normal breath sounds
Abdominal: soft, nontender, normal bowel sounds
Vital Signs:
Vital Signs
Temp Pulse Resp BP Pulse Ox
99 F 71 22 139/66 92
12/31/24 07:56 12/31/24 07:56 12/31/24 07:56 12/31/24 07:56 12/31/24 07:56
Lab Results:
Laboratory Data
WBC 5.1 10^3/uL (4.8-10.8) 12/31/24 05:28
Hgb 10.1 g/dL (13.0-18.0) L 12/31/24 05:28
Plt Count 118 10^3/uL (130-400) L 12/31/24 05:28
PT 15.6 Sec (11.4-14.6) H 12/30/24 14:37
INR 1.22 12/30/24 14:37
APTT 33.4 Sec (23.4-35.0) 12/30/24 14:37
eGFR > 60.00 12/31/24 05:28
[2024-12-31] MEDS: LASIX 20 MG IV (09:50)
--- NOTE | 2024-12-31 11:34 | W.PN.HOSP.TC ---
Today's Communication/Plan
-
IV lasix today
Monitor dyspnea and eval O2 upon ambulation
Resume ASA
Assessment / Plan
Assessment / Plan
Physical Exam
General: No pallor, cyanosis, or jaundice
HEENT: Throat clear. PERRLA Normocephalic atraumatic
NECK: Supple. No JVD Carotid Bruits
RESPIRATORY: Lungs clear to auscultation. No crackles wheezes stridor stable respiratory status on room air
CVS: S1, S2 normal. RRR. Systolic murmur /
ABDOMEN: Soft, non-tender. non-distended. Bowel sounds present
: off Colvin, trial of void
EXTREMITIES: No peripheral cyanosis or edema.
UNDERGRADUATE INTERNSHIP: AOx3 conversant coherent
IMPRESSION:
89M CAD CABG HTN HLD pending TAVR remote Hx Prostate Ca p/w exertional dyspnea exercise intolerance weakness dizziness lightheadedness hematuria 1-2 mo duration. Previously able to walk 2 miles daily w/o issues but now unable to do normal
household tasks without significant dizziness. Lives alone. ED eval significant for Hgb 4.[address] abd/pelvis concerning for bladder/renal ca. ST depressions also noted on lateral leads EKG with associate troponin elevation 0.572. Chest pain
free at rest, though did report intermittent chest tightness/pressure sensation unclear frequency/duration. AOx3 conversant coherent.
PLAN:
#Severe symptomatic Anemia
#CT abd/pelvis concerning for bladder/Lt renal ca
#Hematuria, retention
#Remote hx Prostate Ca
Tele admit
received total 5 PRBC transfusions over two days for goal 9-10 in preparation for urology procedure
Urology appreciated Colvin CBI, completed TURBT 12/28, Complex Lt renal cyst vs solid mass unlikely related to any acute issues - can have further outpatient imaging with renal protocol CT or MRI
-F/u pathology outpatient
Colvin discontinued TOV 12/30 as per Urology
Oncology Eval appreciated
home doxazosin substituted with Flomax during stay
Passed trial of void
Outpatient follow up with Dr. Wells or Neo after discharge
#Iron Deficiency Anemia
#Acute Blood Loss
cont Iron supplementation
-hgb remains stable
-Can resume ASA
#Troponin elevation likely Non-ischemic [place] 2/2 severe anemia as above
#EKG notes lateral ST depressions, currently chest pain free
#Severe , pending TAVR
#Hx CABG
#Hyperlipidemia
Cardio eval appreciated
can resume ASA
cont statin
Troponin trended to peak 2.500 since trended down
Diuretics
Dyspnea
-2/2 to Acute HFpEF along with Severe Aortic Stenosis
-IV lasix today
-Start po lasix [id number] tomorrow
#Bradycardia
#Secondary Heart Block Mobitz type 1 resolved
Home Metoprolol discontinued
cont monitoring
#Hx HTN
ACEI on hold d/t borderline low normotension/hypotension
Home Metoprolol discontinued
Started on Lasix
#Leukopenia
resolved
#Mild Hyponatremia
resolved
#Constipation
cont bowel regimen colace sennoside miralax
resolved
PT/OT appreciated SNF rehab vs home services
DVT ppx SCD, monitor hgb while inititiating ASA
DNR
Total time spent on today's encounter was 51 minutes which included time spent in counseling the patient/family regarding diagnosis and treatment plan as listed above, goals of care, and symptom management. Case was discussed with nursing staff,
specialists, and care coordinators/case management. All labs and imaging personally reviewed by me. Remainder the time spent in detailed review of previous records, lab data, imaging, and other medical provider documentation.
Anticipated Discharge: Within 24 hours
Subjective/Interval History
-
Date of Service: December 31, 2024
no hematuria, hgb remains stable;
Objective Data
-
Labs:
Laboratory Results
12/31/24
05:28
WBC 5.1
Hgb 10.1 L
Hct 30.3 L
Plt Count 118 L
Sodium 137
Potassium 4.0
Chloride 109 H
Carbon Dioxide 25
BUN 18
Creatinine 0.7
Glucose 93
Calcium 8.5
Vital Signs:
Vital Signs
Temp Pulse Resp BP Pulse Ox
98.5 F 83 22 107/51 91
12/31/24 11:07 12/31/24 11:07 12/31/24 11:07 12/31/24 11:07 12/31/24 11:07
I&O
12/30/24 12/31/24 01/01/25
06:59 06:59 06:59
Intake Total 480 / 480 960 / 960
Output Total 875 / 875 450 / 450
Balance -395 / -395 510 / 510
Review of Systems
-
History Source: Patient
All other systems: Not reviewed unless documented
Data Reviewed
-
Diagnostic Radiology: Report Reviewed by me
CT Scan: Report Reviewed by me
Labs: Labs Reviewed by me
[2024-12-31] MEDS: ASPIR LOW (ENTERIC COATED) 81 MG PO (12:03)
[2024-12-31] MEDS: FERRLECIT 110 MG IV (13:18)
--- NOTE | 2024-12-31 15:00 | W.PN.CARDCBS ---
Addendum entered and electronically signed by Thomas Colon MD 12/31/24 15:55:
I saw and examined the patient.
The AFTER SCHOOL COORDINATOR or PA's note was reviewed and I agree with the note.
Comment: General: Well developed, well nourished in NAD.
Neck: Supple, no JVD, HJR, carotids +2 B/L, no bruits bilaterally.
Heart: Non displaced PMI, RRR, 2/6 basal systolic murmur, No S3, S4, no rubs.
Lungs: Scattered rhonchi
Extremities: No clubbing, cyanosis or edema bilaterally.
Neuro: Grossly nonfocal, awake, alert and oriented x3.
BenzePrO, Cardura, Toprol on hold due to hypotension and Mobitz 1. Given Lasix earlier today. Will discuss with TAVR coordinator when TAVR will be done but likely will wait at least 1 month
Original Note:
Today's Communication / Plan
-
Outpatient doses of benazepril, doxazosin and Toprol-XL remain on hold for hypotension and Mobitz 1 respectively
Lasix 20 mg IV x 1 given by hospitalist attending for likely acute HF, will check proBNP
Impression / Plan
-
Dr. Sheron Lemus
Primary Process Camera Operator: Dr. Batista of [facility]
Assessment:
Admitted with lightheadedness and anemia 12/26/24
Subacute/acute blood loss anemia, initial Hgb 4.7 on 12/26/24
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
Abnormal CT abdomen/pelvis with bladder lesions concerning for malignancy and possible left kidney complex cyst versus malignant lesion 12/26/2024
Elevated troponin, suspected nonischemic myocardial injury in setting of above
Severe , undergoing TAVR work up
CAD
s/p CABG x2 NICOLAS to LAD and SVG to OM2 2016
s/p cath (TAVR work up) with patient bypass grafts, severe [place] CAD 11/16/24
HTN
HLD
History of prostate cancer s/p radiation therapy
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
ECHO at [facility] 10/18/24:EF 60%, mild cLVH, grade 1 diastolic dysfunction, Severe with peak/mean gradient 73/37 mmHg LEANNE 0.8 cm�, peak velocity 4.3M/S with dimensionless index of 0.2, mild to mod MR, mild TR, mod WI, PAS 24mmHg, at least
one echolucent structure in hepatic parenchyma likely consistent with hepatic cysts
Echo 12/27/2024: Mild LVH, EF 57%, MAC, mild to moderate mitral regurgitation, dilated left atrium, severe aortic stenosis with trace aortic regurgitation, peak/mean aortic valve gradient 55/31 mmHg, aortic valve area 0.7 cm 2, dimensionless index
0.3, normal RV, preserved RV function, pulmonary artery systolic pressure 42-47 mmHg
Plan:
-TT to TAVR program clinical coordinator by me on 12/31/2024 to get a better sense of the current plan including determining outpatient follow-up and if TAVR is still scheduled.--case reviewed with coordinator and patient should follow up with his
primary core stacker in the next 1-2 weeks as an outpatient. Patient's case to be reviewed again at TAVR meeting and he is not yet officially scheduled
-Patient's bladder tumor was successfully resected and urology is allowing patient to resume aspirin on 12/31/2024
-Outpatient dose of benazepril 20 mg daily has been on hold since admission and BP has been stable so would continue to hold.
-Outpatient dose of doxazosin 8 mg daily has been on hold since admission and BP has been stable so would continue to hold.
- Outpatient dose of Toprol-XL 50 mg daily has been on hold since admission with evidence of Mobitz 1 on telemetry that improved once Toprol XL was placed on hold so would continue to hold.
-CXR report from 12/30/2024 reviewed by me and there is small B/L pleural effusions with mild interstitial edema. Check proBNP, lab ordered by me as an add-on. Patient was not taking a diuretic prior to admission. Patient given Lasix 20 mg IV x1 on
12/31/24
HPI: Patient is an 89 yo M with PMH of CAD s/p CABG x2 with NICOLAS to mid LAD, SVG from aorta to OM2 2017, HTN, HLD, prostate cancer s/p radiation therapy. He was referred from Dr. Batista for cardiac catheterization as part of TAVR workup for severe
. Cath on 11/16/24 showed significant [place] CAD with patent NICOLAS to LAD amd SVG to OM2. He was seen by CT surgery in office 12/17/24. He now presents to ER with progressive dizziness/lightheadedness with minimal activity as well as hematuria over
the last month. No LOC as OP. Hgb 4.8. Cardiology consulted due to elevated troponin of 0.572 in setting of marked anemia.
Progress Note - Process Camera Operator
Subjective
Date of Service: December 31, 2024
He has resting SOB at times
Objective
Labs:
12/31/24 05:28
12/31/24 05:28
Labs
Hgb 10.1 g/dL (13.0-18.0) L 12/31/24 05:28
Hct 30.3 % (39.0-52.0) L 12/31/24 05:28
Plt Count 118 10^3/uL (130-400) L 12/31/24 05:28
PT 15.6 Sec (11.4-14.6) H 12/30/24 14:37
INR 1.22 12/30/24 14:37
APTT 33.4 Sec (23.4-35.0) 12/30/24 14:37
Sodium 137 mmol/L (135-145) 12/31/24 05:28
Potassium 4.0 mmol/L (3.5-5.1) 12/31/24 05:28
BUN 18 mg/dl (9-20) 12/31/24 05:28
Creatinine 0.7 mg/dL (0.7-1.3) 12/31/24 05:28
Glucose 93 mg/dl (70-99) 12/31/24 05:28
Vital Signs and I&O:
Vital Signs
Temp Pulse Resp BP Pulse Ox
98.5 F 83 22 107/51 91
12/31/24 11:07 12/31/24 11:07 12/31/24 11:07 12/31/24 11:07 12/31/24 11:07
Vital Signs
Temp Pulse Resp BP Pulse Ox
98.5 F 83 22 107/51 91
12/31/24 11:07 12/31/24 11:07 12/31/24 11:07 12/31/24 11:07 12/31/24 11:07
Intake & Output
12/29/24 12/30/24 12/31/24 01/01/25
06:59 06:59 06:59 06:59
Intake Total 75 / 75 480 / 480 960 / 960
Output Total 1000 / 1000 875 / 875 450 / 450
Balance -925 / -925 -395 / -395 510 / 510
Physical Exam
Physical Exam
Gen: NAD
Heart: SR on tele
Lungs: RA
--- NOTE | 2024-12-31 16:10 | CM ---
PT OT indicate SNF .
Spoke with pt and Son Xu at bedside.
Referral updates placed for [facility] Spoke with [facility].
Additional information faxed to [facility]. Will need auth for SNF.
PLAN PLan to SNF after auth
[2025-01-01 03:10] VITALS: BP 154/78
[2025-01-01 05:35] LABS: Hematocrit 31.1 % (39.0-52.0); Hemoglobin 10.4 g/dL (13.0-18.0); Mean Corp Hgb Conc. 33.4 g/dL (33.0-37.0); Mean Corpuscular Volume 92.3 fL (80.0-94.0); Platelet Count 117 10^3/uL (130-400); Red Cell Dist. Width 14.3 % (11.5-14.5)
[2025-01-01 06:00] VITALS: BMI 22.2
[2025-01-01 06:03] LABS: Blood Urea Nitrogen 20 mg/dl (9-20); Calcium 8.5 mg/dl (8.4-10.2); Carbon Dioxide 29 mmol/L (22-30); Chloride 110 mmol/L (98-107); Estimated Creatinine Clearance 52 ml/min; Glucose 89 mg/dl (70-99); Magnesium 2.0 mg/dl (1.6-2.3); Potassium 3.9 mmol/L (3.5-5.1); Sodium 139 mmol/L (135-145); eGFR > 60.00
[2025-01-01 08:00] VITALS: BP 157/73
[2025-01-01] MEDS: MIRALAX 17 GRAMS PO (08:23)
[2025-01-01] MEDS: LIPITOR 80 MG PO (08:24)
[2025-01-01] MEDS: PROTONIX 40 MG PO (08:24)
[2025-01-01] MEDS: ASPIR LOW (ENTERIC COATED) 81 MG PO (08:24)
[2025-01-01] MEDS: LASIX 20 MG PO (08:24)
[2025-01-01] MEDS: VITAMIN D3 (cholecalciferol) 25 MCG PO (08:24)
[2025-01-01] MEDS: SENOKOT-S 1 TABLET PO (08:24)
[2025-01-01] MEDS: FLOMAX 0.4 MG PO (08:25)
--- NOTE | 2025-01-01 09:18 | W.PN.ONC ---
Today's Communication / Plan
-
No hematuria, hgb remains stable 10.4 today
Iron studies showed iron deficiency (Iron Studies: iron 33, TIBC 305, ferritin 36.2). Patient receiving iron.
Will continue to follow while patient is admitted.
Impression
Impression
Hematuria and Bladder Mass
- visualized on CT AP: 3.6 x 1.3 cm exophytic lesion in the posterior aspect of the urinary bladder in the region of the trigone
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
- >2 cm bladder tumor was resected completely, path pending
Symptomatic Anemia in setting of acute blood loss
- gross hematuria for last 6 weeks
- blood transfusion initiated last week
- hgb 10.4 today
- plt 117
Aortic Stenosis with planned TAVR
- cardiology will delay TAVR until after bladder surgery d/t need for anticoagulation after procedure
Plan
Plan
No hematuria, hgb remains stable 10.4 today
Iron studies showed iron deficiency (Iron Studies: iron 33, TIBC 305, ferritin 36.2). Patient receiving iron.
Will continue to follow while patient is admitted.
Subjective/Objective
Subjective/Objective
Patient seen sitting in his chair this morning. Patient denies all ROS. Patient is eager to get up and moving around.
Vital Signs:
Vital Signs
Temp Pulse Resp BP Pulse Ox
98.2 F 67 12 157/73 94
01/01/25 08:00 01/01/25 08:00 01/01/25 08:00 01/01/25 08:00 01/01/25 08:00
Lab Results:
Laboratory Data
WBC 4.2 10^3/uL (4.8-10.8) L 01/01/25 05:17
Hgb 10.4 g/dL (13.0-18.0) L 01/01/25 05:17
Plt Count 117 10^3/uL (130-400) L 01/01/25 05:17
PT 15.6 Sec (11.4-14.6) H 12/30/24 14:37
INR 1.22 12/30/24 14:37
APTT 33.4 Sec (23.4-35.0) 12/30/24 14:37
eGFR > 60.00 01/01/25 05:17
[2025-01-01 11:05] VITALS: BP 153/75
--- NOTE | 2025-01-01 11:43 | W.PN.HOSP.TC ---
Addendum entered and electronically signed by Jensen Ackerman MD 01/02/25 13:34:
More than 30 minutes spent in discharge including
Final examination of the patient
Summarizing hospital stay
Instructions for continuing care to all relevant caregivers
Preparation of discharge records, prescriptions, and referral forms
Total time spent (in minutes): 36
[id number]
Original Note:
Today's Communication/Plan
-
po lasix
Iron
monitor hgb
dc ready, cm aware
Assessment / Plan
Assessment / Plan
Physical Exam
General: No pallor, cyanosis, or jaundice
HEENT: Throat clear. PERRLA Normocephalic atraumatic
NECK: Supple. No JVD Carotid Bruits
RESPIRATORY: Lungs clear to auscultation. No crackles wheezes stridor stable respiratory status on room air
CVS: S1, S2 normal. RRR. Systolic murmur /
ABDOMEN: Soft, non-tender. non-distended. Bowel sounds present
: off Colvin, trial of void
EXTREMITIES: No peripheral cyanosis or edema.
PRIVACY ANALYST: AOx3 conversant coherent
IMPRESSION:
89M CAD CABG HTN HLD pending TAVR remote Hx Prostate Ca p/w exertional dyspnea exercise intolerance weakness dizziness lightheadedness hematuria 1-2 mo duration. Previously able to walk 2 miles daily w/o issues but now unable to do normal
household tasks without significant dizziness. Lives alone. ED eval significant for Hgb 4.[address] abd/pelvis concerning for bladder/renal ca. ST depressions also noted on lateral leads EKG with associate troponin elevation 0.572. Chest pain
free at rest, though did report intermittent chest tightness/pressure sensation unclear frequency/duration. AOx3 conversant coherent.
PLAN:
#Severe symptomatic Anemia
#CT abd/pelvis concerning for bladder/Lt renal ca
#Hematuria, retention
#Remote hx Prostate Ca
received total 5 PRBC transfusions over two days for goal 9-10 in preparation for urology procedure
Urology appreciated Colvin CBI, completed TURBT 12/28, Complex Lt renal cyst vs solid mass unlikely related to any acute issues - can have further outpatient imaging with renal protocol CT or MRI
-F/u pathology outpatient
Colvin discontinued TOV 12/30 as per Urology
Oncology Eval appreciated
home doxazosin substituted with Flomax during stay
Passed trial of void
Outpatient follow up with Dr. Wells or Neo after discharge
#Iron Deficiency Anemia
#Acute Blood Loss
cont Iron supplementation
-hgb remains stable
-Can resume ASA
-Recommend oral iron (OTC), 3x/week (MWF),
#Troponin elevation likely Non-ischemic [place] 2/2 severe anemia as above
#EKG notes lateral ST depressions, currently chest pain free
#Severe , pending TAVR
#Hx CABG
#Hyperlipidemia
Cardio eval appreciated
can resume ASA
cont statin
Troponin trended to peak 2.500 since trended down
Diuretics
Dyspnea
-2/2 to Acute HFpEF along with Severe Aortic Stenosis
-IV lasix 12/31
-improved
-Start po lasix and continue 20mg daily
-Ultimately needs TAVR, defer to Cardiology
#Bradycardia
#Secondary Heart Block Mobitz type 1 resolved
Home Metoprolol discontinued
cont monitoring
#Hx HTN
ACEI on hold d/t borderline low normotension/hypotension
Home Metoprolol discontinued
Started on Lasix
#Leukopenia
resolved
#Mild Hyponatremia
resolved
#Constipation
cont bowel regimen colace sennoside miralax
resolved
PT/OT appreciated SNF rehab vs home services
DVT ppx SCD, monitor hgb while initiating ASA
DNR
DC ready, CM aware
Anticipated Discharge: Within 24 hours
Subjective/Interval History
-
Date of Service: January 01, 2025
feels better, no issues with dyspnea
Objective Data
-
Labs:
Laboratory Results
01/01/25
05:17
WBC 4.2 L
Hgb 10.4 L
Hct 31.1 L
Plt Count 117 L
Sodium 139
Potassium 3.9
Chloride 110 H
Carbon Dioxide 29
BUN 20
Creatinine 0.8
Glucose 89
Calcium 8.5
Vital Signs:
Vital Signs
Temp Pulse Resp BP Pulse Ox
99.0 F 83 16 153/75 96
01/01/25 11:05 01/01/25 11:05 01/01/25 11:05 01/01/25 11:05 01/01/25 11:05
I&O
12/31/24 01/01/25 01/02/25
06:59 06:59 06:59
Intake Total 960 / 960 720 / 720
Output Total 450 / 450 885 / 885
Balance 510 / 510 -165 / -165
Review of Systems
-
History Source: Patient
All other systems: Not reviewed unless documented
Data Reviewed
-
Diagnostic Radiology: Report Reviewed by me
CT Scan: Report Reviewed by me
Labs: Labs Reviewed by me
--- NOTE | 2025-01-01 12:25 | W.PN.CARDCBS ---
Today's Communication / Plan
-
Resume Benzapril on discharge
Outpatient follow-up with [facility]
TAVR to be rescheduled
Impression / Plan
-
Dr. Sheron Lemus
Primary Cargo Operations Agent: Dr. Batista of [facility]
Assessment:
Admitted with lightheadedness and anemia 12/26/24
Subacute/acute blood loss anemia, initial Hgb 4.7 on 12/26/24
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
Abnormal CT abdomen/pelvis with bladder lesions concerning for malignancy and possible left kidney complex cyst versus malignant lesion 12/26/2024
Elevated troponin, suspected nonischemic myocardial injury in setting of above
Severe , undergoing TAVR work up
CAD
s/p CABG x2 NICOLAS to LAD and SVG to OM2 2016
s/p cath (TAVR work up) with patient bypass grafts, severe [place] CAD 11/16/24
HTN
HLD
History of prostate cancer s/p radiation therapy
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
ECHO at [facility] 10/18/24:EF 60%, mild cLVH, grade 1 diastolic dysfunction, Severe with peak/mean gradient 73/37 mmHg LEANNE 0.8 cm�, peak velocity 4.3M/S with dimensionless index of 0.2, mild to mod MR, mild TR, mod WA, PAS 24mmHg, at least
one echolucent structure in hepatic parenchyma likely consistent with hepatic cysts
Echo 12/27/2024: Mild LVH, EF 57%, MAC, mild to moderate mitral regurgitation, dilated left atrium, severe aortic stenosis with trace aortic regurgitation, peak/mean aortic valve gradient 55/31 mmHg, aortic valve area 0.7 cm 2, dimensionless index
0.3, normal RV, preserved RV function, pulmonary artery systolic pressure 42-47 mmHg
Plan:
Volume status appears reasonable
Changed to Lasix 20 mg p.o. daily
Tavr will be rescheduled
Dr. Siddiqi update Dr. Barrett in [place] and follow-up with their office prior to rescheduling TAVR
Discussed with outpatient TAVR coordinator as well
Patient's bladder tumor was successfully resected and urology is allowing patient to resume aspirin
Will resume Benzapril
Outpatient dose of doxazosin 8 mg daily has been on hold since admission and BP has been stable so would continue to hold.
Outpatient dose of Toprol-XL 50 mg daily has been on hold since admission with evidence of Mobitz 1 on telemetry that improved once Toprol XL was placed on hold so would continue to hold.
Discussed with primary service
Stable cardiology status for discharge
Will sign off, call with questions
HPI: Patient is an 89 yo M with PMH of CAD s/p CABG x2 with NICOLAS to mid LAD, SVG from aorta to OM2 2017, HTN, HLD, prostate cancer s/p radiation therapy. He was referred from Dr. Batista for cardiac catheterization as part of TAVR workup for severe
. Cath on 11/16/24 showed significant [place] CAD with patent NICOLAS to LAD amd SVG to OM2. He was seen by CT surgery in office 12/17/24. He now presents to ER with progressive dizziness/lightheadedness with minimal activity as well as hematuria over
the last month. No LOC as OP. Hgb 4.8. Cardiology consulted due to elevated troponin of 0.572 in setting of marked anemia.
Progress Note - Cargo Operations Agent
Subjective
Date of Service: January 01, 2025
No chest pain or shortness of breath
Objective
Labs:
01/01/25 05:17
01/01/25 05:17
Labs
Hgb 10.4 g/dL (13.0-18.0) L 01/01/25 05:17
Hct 31.1 % (39.0-52.0) L 01/01/25 05:17
Plt Count 117 10^3/uL (130-400) L 01/01/25 05:17
PT 15.6 Sec (11.4-14.6) H 12/30/24 14:37
INR 1.22 12/30/24 14:37
APTT 33.4 Sec (23.4-35.0) 12/30/24 14:37
Sodium 139 mmol/L (135-145) 01/01/25 05:17
Potassium 3.9 mmol/L (3.5-5.1) 01/01/25 05:17
BUN 20 mg/dl (9-20) 01/01/25 05:17
Creatinine 0.8 mg/dL (0.7-1.3) 01/01/25 05:17
Glucose 89 mg/dl (70-99) 01/01/25 05:17
Vital Signs and I&O:
Vital Signs
Temp Pulse Resp BP Pulse Ox
99.0 F 83 16 153/75 96
01/01/25 11:05 01/01/25 11:05 01/01/25 11:05 01/01/25 11:05 01/01/25 11:05
Vital Signs
Temp Pulse Resp BP Pulse Ox
99.0 F 83 16 153/75 96
01/01/25 11:05 01/01/25 11:05 01/01/25 11:05 01/01/25 11:05 01/01/25 11:05
Intake & Output
12/30/24 12/31/24 01/01/25 01/02/25
06:59 06:59 06:59 06:59
Intake Total 480 / 480 960 / 960 720 / 720
Output Total 875 / 875 450 / 450 885 / 885
Balance -395 / -395 510 / 510 -165 / -165
Physical Exam
Physical Exam
General: Well developed, well nourished in NAD.
Neck: Supple, no JVD, HJR, carotids +2 B/L, no bruits bilaterally.
Heart: Non displaced PMI, RRR, 2/6 basal systolic murmur, No S3, S4, no rubs.
Lungs: Scattered rhonchi
Extremities: No clubbing, cyanosis or edema bilaterally.
Neuro: Grossly nonfocal, awake, alert and oriented x3.
[2025-01-01] MEDS: FERRLECIT 110 MG IV (13:25)
--- NOTE | 2025-01-01 13:48 | CM ---
Addendum entered by Corinna Roberson RN 01/01/25 15:18:
Spoke with Akash [phone] at [place] [address] approved skilled days from to 01/04/25 NRD call [phone] option 5.
RN and son aware. Xu son aware of auth to [facility].Son requested wc van . Acute care # [phone] given to son to make payment. Transportation form completed.
[facility] aware of auth info.
Original Note:
PT indicate SNF .
Pt needs updated OT eval to start auth process. TT to OT and call made for OT eval.
Maria Luisa at [facility] accepted patient
[facility]
report [phone]
fax [phone]
PLAN To [facility] after auth obtained.
[2025-01-01 14:19] VITALS: BP 118/63; PULSE 78; O2SAT 98
[2025-01-01 15:09] VITALS: BP 122/57
--- NOTE | 2025-01-02 13:35 | W.DS.TRANS ---
DC Summary - Mold Designer
-
Discharge Instructions:
Discharge Diagnosis/Procedures Symptomatic anemia, aortic stenosis
Diet 2 Gram Sodium,Restrict fluids to 48 oz
Blood Work CBC in one week
Specialty Instructions Weigh Daily
Instructions: *PCP/Other Toy Designer Heart Failure Instructions
Stand-Alone Forms:
Changes to Home Medications: Yes
Discharge Medications:
DC Medications w/original date entered in [employer]
doxazosin 8 mg tablet 8 mg PO DAILY BPH 08/11/16
pantoprazole 40 mg tablet,delayed release 40 mg PO DAILY Gastrointestinal Issue 08/11/16
aspirin 81 mg tablet,delayed release 81 mg PO DAILY ##1 08/17/16
atorvastatin 40 mg tablet 80 mg PO DAILY High Cholesterol 11/16/24
benazepril 20 mg tablet 20 mg PO DAILY Blood Pressure 11/16/24
ferrous sulfate 325 mg (65 mg iron) tablet 325 mg PO DAILY Supplement 12/26/24
furosemide 20 mg tablet 20 mg PO DAILY #30 tabs 01/01/25
polyethylene glycol 3350 17 gram oral powder packet 17 g PO DAILY #30 ea 01/01/25
Home Medication Changes
furosemide 20 mg tablet 20 mg PO DAILY #30 tabs 01/01/25
polyethylene glycol 3350 17 gram oral powder packet 17 g PO DAILY #30 ea 01/01/25
Pending Results: No
== END 2025-01-01 17:36 | DRG 668 ==
LOC: 3 WEST ACU 18:37
PROVIDERS: Internal Medicine Cardiovascular Disease; Internal Medicine Hematology & Oncology; Surgery; ADMITTING PHYSICIAN Internal Medicine; ATTENDING PHYSICIAN Internal Medicine; CONSULT PHYSICIAN Specialist; EMERGENCY PHYSICIAN Emergency Medicine; FAMILY PHYSICIAN Family Medicine; OTHER PHYSICIAN Internal Medicine Hematology & Oncology
PROC: 30233N1 Transfusion of Nonautologous Red Blood Cells into Peripheral Vein, Percutaneous Approach (ICD-10-PCS; 2024-12-26)
PROC: 0TBB8ZZ Excision of Bladder, Via Natural or Artificial Opening Endoscopic (ICD-10-PCS; 2024-12-28)
DX: C67.0 Malignant neoplasm of trigone of bladder (principal); I50.31 Acute diastolic (congestive) heart failure; D62 Acute posthemorrhagic anemia; N30.41 Irradiation cystitis with hematuria; E87.1 Hypo-osmolality and hyponatremia; I5A Non-ischemic myocardial injury (non-traumatic); K59.00 Constipation, unspecified; I35.0 Nonrheumatic aortic (valve) stenosis; Z85.46 Personal history of malignant neoplasm of prostate; E78.00 Pure hypercholesterolemia, unspecified; N40.0 Benign prostatic hyperplasia without lower urinary tract symptoms; Z95.1 Presence of aortocoronary bypass graft; I25.10 Atherosclerotic heart disease of native coronary artery without angina pectoris; Z92.3 Personal history of irradiation; I11.0 Hypertensive heart disease with heart failure; D72.819 Decreased white blood cell count, unspecified; Z66 Do not resuscitate; Y84.2 Radiological procedure and radiotherapy as the cause of abnormal reaction of the patient, or of later complication, without mention of misadventure at the time of the procedure; Z79.82 Long term (current) use of aspirin; Z88.2 Allergy status to sulfonamides
CPT/HCPCS: 71046; 74177; 80048; 80053; 81003; 81015; 82306; 82607; 82668; 82728; 82746; 83540; 83550; 83735; 83880; 84100; 84443; 84484; 85014; 85018; 85025; 85027; 85045; 85610; 85730; 86850; 86900; 86901; 86920; 88307; 93005; 93306; 97116; 97163; 97167; 97530; 97535; 99285; J2916; P9016; Q9967

== ENCOUNTER 2025-01-31 07:38 | Inpatient (IN) | payer OTHER, SELFPAY ==
[2025-01-25 09:25] VITALS: BMI 22.0
[2025-01-25 10:24] LABS: Urine Character Clear (Clear)
[2025-01-25 10:28] LABS: Hematocrit 35.5 % (39.0-52.0); Hemoglobin 11.4 g/dL (13.0-18.0); Mean Corp Hgb Conc. 32.1 g/dL (33.0-37.0); Mean Corpuscular Volume 95.7 fL (80.0-94.0); Nucleated Red Blood Cells % 0 % (-); Platelet Count 121 10^3/uL (130-400); Red Cell Dist. Width 16.1 % (11.5-14.5)
[2025-01-25 10:35] LABS: INR 1.06; PT 14.1 Sec (11.4-14.6)
[2025-01-25 10:37] LABS: Urine Red Blood Cell 0-2 /HPF (0-2); Urine Urothelial Cell 0-2 /LPF (FEW); Urine White Cell 80-90 /HPF (0-5)
--- NOTE | 2025-01-25 10:56 | HPS.HSE ---
Family Physician
-
Family Physician: OSITO DUENAS MD
Fiscal Technician: Kimberly Barrett
Chief Complaint
-
Pre-operative history and physical for TAVR
History of Present Illness
Kameron Haq is an 89-year-old male with known progressive aortic valve stenosis. His surgical history is notable for a CABG x [address] on 08/13/[address] Chauhan that consisted of NICOLAS to mid LAD, RSVG from aorta to OM 2. Given that the
right-sided system was negative, no graft was placed here. His most recent echocardiogram demonstrated a peak/mean gradient of 73/37 mmHg, respectively. LEANNE was calculated to be 0.8 and peak velocity was 4.3 m/s with a dimensionless index of 0.2.
His left heart catheterization revealed significant [place] coronary disease involving a severely calcified 70% ostial lesion of the LM, 80% proximal stenosis of the LAD, [employer]OR [employer] to the left circumflex and 90% mid RCA lesion. The patient is status post
CABG and has patent NICOLAS to LAD and SVG to the OM. An invasive mean gradient was not performed. From a symptomatology standpoint, he describes progressive fatigue. In comparison to 1 year ago, he feel he feels more tired. Functionally, he is
independent. He has recovered from his recent hospitalization for hematuria related to his bladder cancer. He feels he is back at his baseling.
Reviewed risks of TAVR including PPM, bleeding and stroke. Allowed for and answered questions. He is aware he will be a 0930 arrival on 01/31/2025 and will receive a call the day prior to confirm.
Medical History
Past Medical History
Past Medical History: Reports CAD, Cancer (prostate, bladder cancer), HTN and Hypercholesterolemia
Additional Past Medical History:
Recent hospitalization for bladder cancer and severe anemia requiring transfusion
Past Surgical History: Reports Urological (TURBT 12/28/2024) and Other (CABGX2 08/13/2016)
Social History
Tobacco: Non-smoker
Alcohol: Daily
Drug: None
Personal:
Living: Alone
Employment: Retired
Family History
Family History: Not pertinent
Allergies / Home Medications
Allergies reflects when Allergies were last updated in [facility].
Home Medications with original date entered in [facility]
Allergy/Medication List:
Medications:
amLODIPine Besylate 5 MG Tablet 1 tablet Orally Once a day.
Aspirin Adult Low Dose(Aspirin) 81 MG Tablet Delayed Release 1 tablet Orally Once a day.
Atorvastatin Calcium 80 MG Tablet 1 tablet Orally Once a day.
Benazepril HCl 20 MG Tablet 1 tablet Orally Once a day.
Doxazosin Mesylate 8 MG Tablet 1 tablet Orally Once a day.
Metoprolol Succinate ER 50 MG Tablet take 1 tablet by oral route every evening Oral.
Pantoprazole Sodium 40 MG Tablet take 1 tablet by oral route every day Oral.
Allergies:
Sulfa
Review of Systems
-
History Source: Patient
Constitutional: Reports Fatigue
EENT: Reports No Symptoms
Respiratory: Reports No Symptoms; Denies Cough, Hemoptysis or Trouble Breathing
Cardiac: Reports No Symptoms; Denies Chest Pain, Palpitations or Syncope
Abdomen/GI: Reports No Symptoms; Denies Abdominal Pain, Nausea, Vomiting or Diarrhea
: Reports Bleeding (recent admission in December for hematuria, now resolved); Denies Dysuria, Frequency or Incontinence
Musculoskeletal: Reports No Symptoms
Skin: Reports No Symptoms
Neurological: Reports No Symptoms; Denies Headache or Weakness
Endocrine: Reports No Symptoms
Hematologic/Lymphatic: Reports No Symptoms
Psych: Reports No Symptoms and Calm
Physical Exam
Physical Exam
General: Well Developed, Well Nourished, No Apparent Distress and Comfortable
HEENT: NormoCephalic and PERRLA
Respiratory: Clear and Non Labored Respirations; No Wheezes, Rales or Rhonchi
Cardiac: S1/S2, Regular Rhythm and Murmur (Grade III/ ROLAND)
Breast: Deferred by me
GI: Soft, Non Tender, Non Distended and Normal Bowel Sounds
Rectal: Deferred by Provider
Genito-urinary: Deferred by me
Musculoskeletal: No Clubbing and No Edema
Skin: Warm and Dry
Neuro: AO x 3 and No Motor Deficits
Psych: Calm and Intact Judgment/Insight
Laboratory Results
-
01/25/25 09:45
Laboratory Results
PT 14.1 Sec (11.4-14.6) 01/25/25 09:45
INR 1.06 01/25/25 09:45
Data Reviewed
-
Diagnostic Radiology: Report Reviewed by me (Chest x-ray- no cardiopulmonary abnormality)
Medical Tests (Nuc Med, Echo, EKG etc): Report Reviewed by me (EKG- 1at degree heart block, no other conduction issues noted)
Lab Data: Labs Reviewed by me
Old Records: Reviewed (recent hospitalization records)
Impression/Plan
-
IMPRESSION:
Symptomatic Aortic Stenosis
PLAN:
- Proceed with TF TAVR utilizing a 26mm Evolut FX valve
-Continue ASA post, patient instructed to take morning of procedure prior to arrival
-Post operative echocardiogram day #1/#30
-Cardiac Rehab Consult
-Antibiotic prophylaxis prior to dental procedures for life
--- NOTE | 2025-01-25 11:13 | CM ---
Met with Mr. Haq and his son in [facility]. He states prior to admission he resides alone in a two story home with five steps to enter. He states he has a full flight of steps to get to bedroom/full bathroom. He states he does not have a
bathroom on the first floor. He states prior to admission he was independent with ambulation and adls. He states he has a single point cane and walker at home that was his spouses and he is not using currently. He states he has a prescription plan
with [facility] and uses [facility]. His son states he resides near by Mr. Haq and will check in on him. His other two sons also reside locally and they will be able to check on him as well. He states he was in [facility] for SNF/Rehab. after
his bladder surgery. He also had a physical therapist come to his home once from [facility]. The discharge plan is to return home with family support and a home visit by the Transitional Care Nurse when medically stable.
We reviewed pre-op and post-op routines. We reviewed the shower instructions. He has the soap and written instructions. He already has the TAVR Educational Booklet. We also reviewed restrictions including driving and leafing restrictions. We
discusses a home visit by the Transitional Care Nurse. He is agreeable to a home visit. The plan is for TAVR on January 31, 2025.
[2025-01-25 11:48] LABS: Glycohemoglobin (HgbA1c) 5.3 % (4.0-5.6)
[2025-01-25 12:25] LABS: ALT (SGPT) 18 U/L (0-50); AST (SGOT) 24 U/L (17-59); Albumin 4.3 g/dl (3.5-5.0); Alkaline Phosphatase 73 U/L (38-126); Blood Urea Nitrogen 21 mg/dl (9-20); Calcium 9.4 mg/dl (8.4-10.2); Carbon Dioxide 28 mmol/L (22-30); Chloride 106 mmol/L (98-107); Estimated Creatinine Clearance 42 ml/min; Glucose 93 mg/dl (70-99); Potassium 4.0 mmol/L (3.5-5.1); Sodium 142 mmol/L (135-145); Total Protein 6.6 g/dl (6.3-8.2); eGFR > 60.00
[2025-01-31] VITALS (19 sets, daily range): BP systolic 128–183; BP diastolic 59–79; BMI 21.9
--- NOTE | 2025-01-31 08:13 | W.CVOR.SURPR ---
CVOR Surgeon Immed Pre Op
-
I have examined this patient prior to performance of the scheduled procedure.
The patient's condition is unchanged from the time of the dictated/written History and
Physical and the patient is able to undergo the scheduled procedure.
--- NOTE | 2025-01-31 08:30 | CM ---
Reviewed chart. Mr. Haq is in the operating room today. Prior to admission he resides alone in a two story home with five steps to enter. He has a full flight of steps to get to bedroom/full bathroom. He does not have a bathroom on the
first floor. Prior to admission he was independent with ambulation and adls. He has a single point cane and walker at home that was his spouses and he is not using currently. He has a prescription plan with [facility] and uses [facility]. His son "Cynthia"resides near by Mr. Haq and will check in on him. His other two sons also reside locally and they will be able to check on him as well. He was in [facility] for SNF/Rehab. after his bladder surgery. He also had a physical therapist come
to his home once from [facility]. The discharge plan is to return home with family support and a home visit by the Transitional Care Nurse when medically stable.
--- NOTE | 2025-01-31 08:32 | ITS.CL.TAVR ---
Churner - TAVR Report
TAVR PRocedure
Procedure Report:
TRANSCATHETER AORTIC VALVE REPLACEMENT
Date of Procedure: January 31, 2025
Referring: Kimberly Barrett MD
Operators: Drs. Odalis Siddiqi and Duong Paz MD
PROCEDURE PERFORMED:
1. Successful placement of 26 mm Medtronic Evolut FX+ valve via left femoral artery.
ACCESS:
1. Left common femoral artery, 8 [place] Ze[place]ander sheath, under ultrasound guidance using a micropuncture kit.
2. Right common femoral vein, 6 [place] sheath, under ultrasound guidance using a micropuncture kit.
3. Left radial artery, 6 [place] sheath, under ultrasound guidance using a micropuncture kit.
Ultrasound was utilized for vascular access. The right and left femoral vein and artery, along with left radial artery were visualized under ultrasound, and the vessels was patent and arteries were pulsatile. An image was stored permanently in the
patient's medical record. Under direct ultrasound guidance, sheaths as noted above were inserted into the right CFV and left femoral artery along with left radial artery using a micropuncture kit through a modified Seldinger technique.
PREPROCEDURE NYHA CLASS: II
DESCRIPTION OF PROCEDURE: The patient was referred for assessment of severe symptomatic aortic stenosis and following a comprehensive evaluation it was felt that transcatheter aortic valve replacement (TAVR) would be the most appropriate treatment.
Informed consent was obtained prior to the procedure. A 'time-out' was called and the procedural plan was verbally confirmed by anesthesia, surgery, perfusion, and research laboratory specialist staff.
Arterial and venous access were obtained in the left radial artery and left common femoral vein using a micropuncture technique and 6 Fr. sheaths were inserted. A 5 Fr. transvenous pacing wire was then advanced to the right ventricle where
excellent pacing thresholds were obtained.
A 5 Fr. pigtail catheter was then advanced to the proximal ascending aorta / noncoronary cusp where angiography was performed to define the the cusp overlap view isolating the non-coronary cusp with overlap of the right and left coronary cusps. The
cusp overlap view was RUSS 13/CAU 11.
Ultrasound guidance was then used to obtain arterial access in the left common femoral artery and a 8 Fr. sheath was inserted. Angiography was performed and the arteriotomy site appeared appropriate for preclosure with two Perclose devices. An 8
[place] sheath was then inserted back into the common femoral artery over a J-tipped guidewire. An AL1 catheter was then advanced to the proximal descending aorta. A Double-curve Lunderquist 0.035' wire was placed in the proximal descending
thoracic aorta to facilitate delivery of a 14 Fr / 13 cm Cook sheath.
An AL1 catheter was then positioned just above the aortic valve and a 0.035' Straight tip wire probed the aortic valve and crossed the stenotic leaflets. The AL1 was then advanced to the mid left ventricle. A long J-wire was advanced to the left
ventricular apex and was followed to the apex with an angled pig-tail catheter. Invasive left ventricular end-diastolic pressure was 18 mmHg. The Double Curve Lunderquist was then positioned in the left ventricular apex. The Evolut FX+ stent was
inspected under fluoroscopy/cine while rotating the stent delivery system. The stent paddles were within the pocket and no significant crown overlap noted.
Balloon predilation was performed with rapid pacing using a 20 mm TRUE balloon. The balloon was removed and the 14 Fr. sheath was exchanged for the Evolut InLine delivery system. The 26 mm Evolut FX+ stent was advanced across the stenotic
leaflets. The Evolut FX+ valve was slowly deployed in the leaflet overlap view until the stent flared achieving contact at 3mm below the noncoronary cusp. The stent continued to flared achieving contact with the left coronary cusp. The image
intensifier was rotated to an CUBAN position to remove parallax from the valve with continued valve deployment with controlled pacing. We transitioned quickly through the rumble strips on the InLine delivery sheath until the marker band was
positioned just below the paddle attachment. Angiography was performed. The valve structure was released from the delivery system when we were happy with the valve position. Post deployment angiography had only mild aortic insufficiency and a
mean gradient of 3 mmHg.
The Evolut FX+ delivery system capsule was reunited to the body of the delivery system. The Evolut InLine sheath was removed and the Perclose knots were advanced to the arteriotomy site resulting in excellent hemostasis. Final left iliofemoral
angiography showed the femoral arteriotomy was above the bifurcation and below the inferior epigastric artery. There was evidence of a very small pseudoaneurysm and therefore decision was made to hold manual pressure for 15 minutes and protamine
was given to reverse the anticoagulation at the end of the case. Repeat imaging showed a smaller but persistent small pseudoaneurysm. We reviewed imaging with our vascular surgeon, Dr. Brandon Monique. Given brisk flow into the distal vessels with a
very small neck of the pseudoaneurysm decision was made to hold additional pressure for 30 minutes manually with plan to check ultrasound Doppler later today and again tomorrow to assess stability given otherwise there were no evidence of ongoing
bleed, hematoma with intact distal pulses.
Fluoro Time (min): 11.8, Dose (mGy): 205, DAP (Gy.cm2) : 19.1
CONCLUSIONS:
1. Severe symptomatic aortic stenosis. Successful deployment of a 26 mm Evolut FX+ valve with minimal aortic insufficiency post procedure
2. Successful arteriotomy closure with 2 Perclose devices.
Odalis Siddiqi MD, [facility], [facility]
Copy to: Kimberly Barrett MD (cardiology) and Susan Lemus (PCP)
[2025-01-31 10:03] LABS: ACT-LR - POC 229 Seconds (116-155)
--- NOTE | 2025-01-31 10:04 | W.IMMPOSTOP ---
Surgical Immed Post Op Note
-
[id number]
STRUCTURAL HEART PROCEDURE NOTE: TAVR
Preoperative Dx:
Severe aortic stenosis (P/M: 73/37, LEANNE 0.8, International Trade Teacher 4.3)
CAD s/p prior CABG x 2 w/ patent grafts
HTN/HCHOL
Prostate CA
Postoperative Dx:
Same
LVEDP 18mmHg
Procedures:
1) R CFV access w/ U/S and fluoroscopic guidance, micropuncture technique, long 6Fr sheath placement
2) L RA access w/ tactile, U/S, and fluoroscopic guidance, micropuncture technique, 6Fr sheath placement; radial 'cocktail'
3) L SENIOR ELECTRICAL PROJECT MANAGER access w/ tactile, U/S, and fluoroscopic guidance, micropuncture technique, limited angiography, 8Fr dilator placement
4) Perclose placement x 2 into L SENIOR ELECTRICAL PROJECT MANAGER; 8Fr sheath placement
5) Placement of temporary RV pacing wire, threshold testing
6) Placement of pigtail catheter in NCC via L RA access w/ limited aortography & confirmation of cusp-overlap view
7) Placement of 14Fr COOK sheath via L SENIOR ELECTRICAL PROJECT MANAGER (systemic heparinization)
8) Wire purchase across stenotic AV (AL-1, soft-tip straight, table-J wire, pigtail catheter, LVEDP assessment)
9) Fluoroscopic inspection of Evolut Fx valve/delivery system - placement of Lunderquist wire in LV apex
10) Pre-TAVR BAV w/ 20mm TRUE balloon
11) L TF TAVR w/ placement of 26mm Evolut Fx+ (1 recapture)
12) Completion TTE assessment (mean gradient 3mmHg, woskj-cd-uoku PVL, no effusion, hyperdynamic LV function)
13) L RA pigtail repositioned to distal abdominal aorta
14) Removal of temporary pacing wire
15) Removal of zswex-zfgakizw-dqwxem w/ L SENIOR ELECTRICAL PROJECT MANAGER mgmt w/ perclose sutures x 2; 8Fr angioseal
16) Completion angiography w/ brisk runoff into L SFA & profunda w/ slight narrowing at arteriotomy site and very minor extravasation; protamine administered, manual pressure held
17) Completion angiography w/ improved but persistent small pseudoaneurysm - case d/w vascular surgery - additional pressure will be held - U/S will be obtained post additional 20-30min pressure
18) Removal of L RA 6Fr sheath w/ radial band placement
19) Removal of R CFV 6Fr sheath w/ manual pressure
Pharmacovigilance Specialist:
Dr. Odalis Siddiqi
Cardiac Surgeon:
Dr. Duong Paz
Anesthesia:
MAC and local to B/L groins, L wrist
Implants:
Medtronic Evolut Fx+, 26mm, SN [id number]
Perclose x 2 to L SENIOR ELECTRICAL PROJECT MANAGER
8Fr angioseal to L SENIOR ELECTRICAL PROJECT MANAGER
Cath Data:
Start: 0859hrs, Deploy: 0944hrs, End: 1022hrs
FT: 11.8min, mGy: 205, DAP: 19.1; Contrast: 160mL
TTE: mean gradient 3mmHg, lkchl-qg-hcwu PVL
Complications:
Small pseudoaneurysm at L SENIOR ELECTRICAL PROJECT MANAGER access site - d/w vascular surgery - additional pressure being held; U/S will be obtained
[2025-01-31 10:05] LABS: ACT-LR - POC 314 Seconds (116-155)
[2025-01-31] MEDS: LEVOPHED 250 IV (11:05)
--- NOTE | 2025-01-31 13:29 | PTCARENOTE ---
Received patient from PACU at 1310 after TAVR. Patient is AAO, neuro check intact. SR on the monitor with BBB and 1st degree heart block. On RA, lungs clear. Right forearm edematous with dressing in place. Left radial band in place, area soft but
ecchymotic. Right groin dressing is dry and intact. Fem stop released from the left groin, no active bleeding noted. Hemostatic pad placed with sterile pressure dressing and tegaderm. Reinforced need for bedrest until 1700, call christine in reach, the
patient's son and DIL at the bedside.
[2025-01-31] MEDS: ANCEF 10 IV ×2 (17:08)
[2025-01-31] MEDS: ANCEF 5 IV (17:08)
[2025-01-31] MEDS: FLUSH (NSS) 2 FLUSH IV (17:08)
--- NOTE | 2025-01-31 19:20 | PTCARENOTE ---
Patient maintained bedrest until 1714, no further bleeding from the left groin. HOB elevated and he was able to tolerate ambulating to the bathroom with assistance.
--- NOTE | 2025-01-31 23:21 | PTCARENOTE ---
Pt rec'd at change of shift awake,alert with no c/o pain. B/L groin sites with DDI. left radial site soft but ecchymotic. Sinus with first degree and BBB noted on telemetry. Pt ambulated with staff and walker. gait appears steady. call christine within
reach.
[2025-02-01] VITALS (7 sets, daily range): BP systolic 128–160; BP diastolic 38–77; PULSE 77; O2SAT 95–98; BMI 21.6
[2025-02-01 04:16] LABS: Hematocrit 30.9 % (39.0-52.0); Hemoglobin 10.2 g/dL (13.0-18.0); Mean Corp Hgb Conc. 33.0 g/dL (33.0-37.0); Mean Corpuscular Volume 94.5 fL (80.0-94.0); Platelet Count 92 10^3/uL (130-400); Red Cell Dist. Width 16.3 % (11.5-14.5)
[2025-02-01 04:32] LABS: Blood Urea Nitrogen 20 mg/dl (9-20); Calcium 9.0 mg/dl (8.4-10.2); Carbon Dioxide 23 mmol/L (22-30); Chloride 111 mmol/L (98-107); Estimated Creatinine Clearance 52 ml/min; Glucose 78 mg/dl (70-99); Potassium 4.1 mmol/L (3.5-5.1); Sodium 140 mmol/L (135-145); eGFR > 60.00
--- NOTE | 2025-02-01 07:16 | W.PN.ANS.POP ---
Anesthesia Post Operative
- Anesthesia Post Op Note
Vital Signs Stable-See Nursing Note: Yes
Airway Patent: Yes
Adequate Pain Control: Yes
Change in Mental Status: No
Current Postoperative Nausea & Vomiting: No
Anesthesia Complications: No
General Anesthetic Recall: No
Unplanned Admission: No
Post Op Hydration Adequate: Yes
--- NOTE | 2025-02-01 07:59 | W.PN.CT ---
Today's Communication / Plan
-
-pod #1
-no issues overnight
-nsr 70s, occasional PACs overnight. No rosemary or significant pauses
-new LBBB postop. Toprol is held
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
-Echo today
-current meds (ASA, Lipitor, Norvasc, Zestril, Flomax, Feosol, Protonix)
-ambulate
-will need outpatient heart monitor
Assessment / Plan
-
- Severe symptomatic - s/p Pre-TAVR BAV w/ 20mm TRUE balloon followed by L TF TAVR w/ placement of 26mm Evolut Fx+ (1 recapture) on 01/31/25, pod #1
- LVEDP 18mmHg
- TTE: mean gradient 3mmHg, gqkyz-qd-fvdv PVL
- Suspected acute postop small pseudoaneurysm at L DECORATING INSPECTOR access site- manual pressure held. US revealed no pseudoaneurysm or hematoma
- Acute postop LBBB
- CAD s/p prior CABG x 2 in 2017 w/ patent grafts
- HTN/HCHOL
- Prostate CA with XRT
- Hx Mobitz 1 AVB
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
Discussed patient care with: Nursing and Care Team
Subjective
-
Date of Service: February 01, 2025
Objective Data
-
PT 14.1 Sec (11.4-14.6) 01/25/25 09:45
INR 1.06 01/25/25 09:45
Vital Signs
Vital Signs
Temp Pulse Resp BP Pulse Ox
98.4 F 63 18 154/65 98
01/31/25 22:07 02/01/25 00:30 01/31/25 22:07 01/31/25 22:07 01/31/25 22:07
CT Intake/Output/Weight
01/31/25 01/31/25 02/01/25
06:59 18:59 06:59
Intake Total 1440 / 1540 100 / 1540
Output Total 400 / 950 550 / 950
Balance 1040 / 590 -450 / 590
SaO2: 98
Physical Exam
-
General: Awake and AOx3
Cardiovascular: Regular rate & rhythm, No Murmurs and No Rub
Respiratory: Clear
Incision: Other (groins are cdi, soft, nontender, no hematoma b/l)
Extremities: No Edema (DPs 1+ b/l)
Abdomen: soft, nontender, nondistended, + bowel sounds
Data Reviewed
-
Lab Results: Results Reviewed
Medications: Active Meds Reviewed
Chest X-Ray: Report Reviewed and Image Reviewed
ECG: Report Reviewed and Image Reviewed
[2025-02-01] MEDS: NORVASC 5 MG PO (08:58)
[2025-02-01] MEDS: ASPIR LOW (ENTERIC COATED) 81 MG PO (08:59)
[2025-02-01] MEDS: PROTONIX 40 MG PO (08:59)
[2025-02-01] MEDS: FEOSOL 325 MG PO (08:59)
[2025-02-01] MEDS: ZESTRIL 20 MG PO (08:59)
[2025-02-01] MEDS: LIPITOR 80 MG PO (08:59)
[2025-02-01] MEDS: FLOMAX 0.4 MG PO (08:59)
--- NOTE | 2025-02-01 09:32 | W.DCSUMMARY ---
Discharge Summary
Discharge Data
Date of Admission: 01/31/25
Date of Discharge: 02/01/25
-
Pending Results: No
Hospital Course
Primary care physician: Ruperto Motta
Outpatient hot press operator: Kimberly Barrett
Inpatient consultants: [facility]
Procedures:
1. Left transfemoral TAVR
Primary Diagnosis:
1. Severe aortic stenosis
Secondary Diagnoses:
1. Coronary artery disease status post coronary artery bypass graft x2 with patent grafts.
2. Hypertension
3. hypercholesterolemia
4. Prostate carcinoma with XRT
- Acute postop new left bundle branch block
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
HPI: 89-year-old male was electively admitted on 01/31/2025 for TAVR due to severe aortic stenosis.
Hospital course: Patient was brought to the operating room and underwent L TF TAVR #26mm Evolut Fx+ by Drs. Duong Paz and Odalis Siddiqi. For further details, please see operative report. Postprocedure echocardiogram reported mean gradient of 3
with trace/mild however leak, no effusion and hyperdynamic LV. Left groin site with associated pressure held. There was question of a left groin pseudoaneurysm and ultrasound reported no evidence of pseudoaneurysm or hematoma status post left
common femoral artery access for TAVR procedure. On postoperative day #1, ECG reported sinus rhythm with continued left bundle branch block. Chest x-ray was without pulmonary abnormality. Echocardiogram reported an EF of 62% with AV gradients of
19/11 mmHg, and mild paravalvular aortic insufficiency. A heart rhythm monitor was applied and will be monitored by cardiology due to the new left bundle branch block.
Home medication changes:
none
Discharge Plan
-
Patient Disposition: Home (Routine Discharge)
Discharge Diagnosis/Procedures: left TF-TAVR #26mm Evolut (01/31/25)
Condition: Good
Diet: Low Cholesterol and 2 Gram Sodium
Activity: As tolerated
Driving Restrictions: No driving for 1 week
Bathing Restrictions: OK to Shower
Others Tests: Please call Dr. Barrett's office to schedule an echocardiogram for 30 days after your TAVR procedure
Other Services: Cardiac Rehab
Wound Care: Please do not apply lotions, powders or creams to groin areas. Please monitor for increased swelling, pain, redness or drainage. Contact your doctor if any occur.
Specialty Instructions: Weigh Daily- Call MD for wt gain/loss 3 lbs overnight/5 lbs in 1 week
Referrals:
CT Transitional Care Nurse [Outside] - in one to two days
Referral Note:
The Cardiothoracic Transitional Care Nurse will call you to set up a visit in 1-2 days.
Vicky Quintanilla PA-C [Non-Admitting Privileges] - 02/25/25 3:00 pm
OSITO DUENAS MD [Family Provider, [facility]] - in four to six weeks
Referral Note: Please make an appointment in four to six weeks.
Additional Discharge Medication Instructions: Continue all home meds (Aspirin and Metoprolol are NOT new meds)
Prescriptions:
New
metoprolol succinate 50 mg Tablet Extended Release 24 Hr
50 mg PO QPM Qty: 0 1RF
aspirin 81 mg Tablet,Delayed Release (Dr/Ec)
81 mg PO DAILY Qty: 0 0RF
Continued
doxazosin 8 MG tablet
8 mg PO DAILY
pantoprazole 40 MG tablet,delayed release (DR/EC)
40 mg PO DAILY
ferrous sulfate 325 mg (65 mg iron) Tablet
325 mg PO DAILY
atorvastatin 80 mg Tablet
80 mg PO DAILY Qty: 0 0RF
Vitamin D3 125 mcg tablet
1 dose PO DAILY Qty: 0 0RF
Patient Comments:
patient unsure of dosage, will bring list on day of testing
benazepril 20 mg Tablet
5 mg PO DAILY Qty: 0 0RF
Discontinued
aspirin 81 MG tablet,delayed release (DR/EC)
81 mg PO DAILY Qty: 1 0RF
Discharge Orders:
Discharge Patient (As Directed); Ordered 02/01/25
Ordered By: Wendy Hunter
Care Plan Goals
Care Plan Goals:
Problem: Readiness for enhanced knowledge related to diagnosis and treatment plan
Goal: Understand your diagnosis and treatment plan needs, including medications if applicable.
Instructions: Know your diagnosis, underlying causes and treatment plan options, including medications if applicable. Consult with your health care team to learn about your diagnosis and treatment plan, including medications if applicable.
Discharge Date and Time
Print Language: TURKISH
--- NOTE | 2025-02-01 10:14 | W.PN.CARDCBS ---
Addendum entered and electronically signed by Thomas Colon MD 02/01/25 10:41:
I saw and examined the patient.
The JOINT CUTTER or PA's note was reviewed and I agree with the note.
Comment: General: Well developed, well nourished in NAD.
Neck: Supple, no JVD, HJR, carotids +2 B/L, no bruits bilaterally.
Heart: Non displaced PMI, RRR, no murmurs, No S3, S4, no rubs.
Lungs: Scattered rhonchi
Extremities: No clubbing, cyanosis or edema bilaterally.
Neuro: Grossly nonfocal, awake, alert and oriented x3.
Stable cardiology status status post TAVR. He has left bundle branch block with discharge on monitor. Echocardiogram was okay. Discussed with CT surgery
Original Note:
Today's Communication / Plan
-
New LBBB noted post TAVR
Discharge with 14 day Rhythm Star monitor in place.
Metoprolol on hold
Continue amiodarone, benazepril
Continue aspirin
Follow up arranged.
Impression / Plan
-
PCP: Dr. Sheron Lemus
Primary Process Control Specialist: Dr. Batista of [facility]
Assessment:
Severe
s/p #26 mm L TF TAVR 01/31/2025
New LBBB post TAVR
Abnormal CT abdomen/pelvis with bladder lesions concerning for malignancy and possible left kidney complex cyst versus malignant lesion 12/26/2024
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
CAD
s/p CABG x2 NICOLAS to LAD and SVG to OM2 2016
s/p cath with patient bypass grafts, severe [place] CAD 11/16/2024
HTN
HLD
h/o prostate cancer s/p radiation therapy
Echo at [facility] 10/18/24: EF 60%, mild cLVH, grade 1 diastolic dysfunction, Severe with peak/mean gradient 73/37 mmHg LEANNE 0.8 cm�, peak velocity 4.3M/S with dimensionless index of 0.2, mild to mod MR, mild TR, mod DE, PAS 24mmHg, at
least one echolucent structure in hepatic parenchyma likely consistent with hepatic cysts
Echo 12/27/2024: Mild LVH, EF 57%, MAC, mild to moderate mitral regurgitation, dilated left atrium, severe aortic stenosis with trace aortic regurgitation, peak/mean aortic valve gradient 55/31 mmHg, aortic valve area 0.7 cm 2, dimensionless index
0.3, normal RV, preserved RV function, pulmonary artery systolic pressure 42-47 mmHg
Echo 02/01/2025: EF 62%, mild LVH, s/p TAVR with peak/mean gradients 19/11 mmHg, mild paravalvular AR, mild MR, mild TR, estimated PAP 25 mmHg
Plan:
-Known severe , s/p L TF TAVR 01/31/2025. POD #1.
-Doing well this AM. No complaints.
-New LBBB noted post-TAVR. Stable overnight on tele with no significant bradycardia or pauses.
-EKG this AM SR with 1st degree AV block, LBBB. Toprol on hold.
-Will discharge with 14 day Rhythm Star monitor in place.
-Follow up echo today stable with peak/mean gradients 19/11 mmHg.
-Continue amlodipine. Resume benazepril at discharge.
-Continue aspirin 81 mg daily
-Continue lipitor 80mg daily.
-OK for discharge w/ monitor in place. Follow up arranged.
HPI: Patient is an 89 yo M with PMH of CAD s/p CABG x2 with NICOLAS to mid LAD, SVG from aorta to OM2 2016, HTN, HLD, prostate cancer s/p radiation therapy. He was referred from Dr. Batista for cardiac catheterization as part of TAVR workup for severe
. Cath on 11/16/24 showed significant [place] CAD with patent NICOLAS to LAD amd SVG to OM2. He was seen by CT surgery in office 12/17/24. He now presents to ER with progressive dizziness/lightheadedness with minimal activity as well as hematuria over
the last month. No LOC as OP. Hgb 4.8. Cardiology consulted due to elevated troponin of 0.572 in setting of marked anemia.
Progress Note - Process Control Specialist
Subjective
Date of Service: February 01, 2025
Feels well with no complaints
Objective
Labs:
02/01/25 03:35
02/01/25 03:35
Labs
Hgb 10.2 g/dL (13.0-18.0) L 02/01/25 03:35
Hct 30.9 % (39.0-52.0) L 02/01/25 03:35
Plt Count 92 10^3/uL (130-400) L D 02/01/25 03:35
PT 14.1 Sec (11.4-14.6) 01/25/25 09:45
INR 1.06 01/25/25 09:45
Sodium 140 mmol/L (135-145) 02/01/25 03:35
Potassium 4.1 mmol/L (3.5-5.1) 02/01/25 03:35
BUN 20 mg/dl (9-20) 02/01/25 03:35
Creatinine 0.8 mg/dL (0.7-1.3) 02/01/25 03:35
Glucose 78 mg/dl (70-99) 02/01/25 03:35
Vital Signs and I&O:
Vital Signs
Temp Pulse Resp BP Pulse Ox
98.8 F 80 18 160/77 94
02/01/25 08:48 02/01/25 08:59 02/01/25 08:48 02/01/25 08:59 02/01/25 08:48
Vital Signs
Temp Pulse Resp BP Pulse Ox
98.8 F 80 18 160/77 94
02/01/25 08:48 02/01/25 08:59 02/01/25 08:48 02/01/25 08:59 02/01/25 08:48
Intake & Output
01/30/25 01/31/25 02/01/25 02/02/25
06:59 06:59 06:59 06:59
Intake Total 1540 / 1540
Output Total 1150 / 1150 200 / 200
Balance 390 / 390 -200 / -200
Physical Exam
Physical Exam
GEN: No distress, awake, alert, oriented x3
HEENT: supple, anicteric, mmm
LUNGS: CTA b/l, no wheezes/rales
CV: Reg, S1/S2,no murmur
EXT: No clubbing, cyanosis, or edema
NEURO: Gross non-focal
SKIN: Warm, dry, no rash
--- NOTE | 2025-02-01 14:15 | PTCARENOTE ---
~[id number]: handoff report received from nightshift RN. Pt AOx4, NSR 1st degree AVB with new LBBB s/p TAVR yesterday, rate 70s-80s, SBP 160s, RA satting 94%. Pt OOB with Ax1 and walker to bathroom and chair. L radial site CDI and soft, BL groin
sites soft, dressings CDI, L groin site slightly ecchymotic. Skin tear present R forearm, dressing CDI. All needs met at this time, call christine within reach.
~[id number]: Ax1 and walker to bathroom. [facility] Star outpt heart monitor educator in to see patient and educated about monitor maintenance. Rhythm Star placed on patient. Assistance provided with dressing. Both Sons called with upate that patient
will be discharged today. VSS at this time.
~[id number]: Reveiwed discharge paperwork with patient and son, all questions answered at this time. Patient discharged in stable condition to home. tele monitor and PIV removed. Patient wheeled to lobby in stable condition.
== END 2025-02-01 14:15 | disposition home or self-care (01) | DRG 267 ==
LOC: IVU 07:38
PROVIDERS: Physician Assistant Medical; ADMITTING PHYSICIAN Thoracic Surgery (Cardiothoracic Vascular Surgery); CONSULT PHYSICIAN Internal Medicine Interventional Cardiology; FAMILY PHYSICIAN Family Medicine
PROC: 02RF38Z Replacement of Aortic Valve with Zooplastic Tissue, Percutaneous Approach (ICD-10-PCS; 2025-01-31)
DX: I35.0 Nonrheumatic aortic (valve) stenosis (principal); I45.2 Bifascicular block; I25.10 Atherosclerotic heart disease of native coronary artery without angina pectoris; R31.9 Hematuria, unspecified; E78.00 Pure hypercholesterolemia, unspecified; I10 Essential (primary) hypertension; Z79.82 Long term (current) use of aspirin; Z79.899 Other long term (current) drug therapy; Z85.46 Personal history of malignant neoplasm of prostate; Z85.51 Personal history of malignant neoplasm of bladder; Z95.1 Presence of aortocoronary bypass graft
CPT/HCPCS: 33361; 36415; 71045; 71046; 76937; 80048; 80053; 81003; 81015; 82248; 83036; 83880; 85025; 85027; 85610; 86850; 86900; 86901; 87070; 87086; 93005; 93308; 93321; 93325; 93926; C1760; C1769; C1894; Q9967

== ENCOUNTER 2025-02-03 14:58 | Inpatient (IN) | payer OTHER, SELFPAY ==
[2025-02-03] VITALS (15 sets, daily range): BP systolic 119–178; BP diastolic 51–102; BMI 22.9; BMI 21.6
--- NOTE | 2025-02-03 05:18 | ED.CVA ---
History of Present Illness
General
Chief Complaint: CVA/TIA Symptoms
Time Seen by Provider: 02/03/25 05:18
Course
Vital Signs
Initial and Last Documented VS:
Initial Vital Signs
BP
178/78
02/03/25 04:14
Last Documented Vital Signs
Temp Pulse BP Pulse Ox
97.5 F 70 157/65 96
02/03/25 04:19 02/03/25 05:00 02/03/25 05:00 02/03/25 04:45
*Pulse Oximetry
SaO2: 96
Oxygen Mode of Delivery: Room air
ED Attending Note
-
Portions of this chart may have been created with voice recognition software.� Occasional wrong word or��sound alike� substitutions may have occurred due to the inherent limitations of voice recognition software.
Discharge Plan
Departure
Patient Disposition: Admit
Date of Disposition: 02/03/25
Time of Disposition: 05:19
Admit to: Telemetry
Admit to doctor: Dom
Presentation/result/management discussed w/ accepting MD/DO: Hospitalist
Condition: Fair
Discharge Problem:
TIA rule out CVA
Prescriptions:
No Action
doxazosin 8 MG tablet
8 mg PO DAILY
pantoprazole 40 MG tablet,delayed release (DR/EC)
40 mg PO DAILY
ferrous sulfate 325 mg (65 mg iron) Tablet
325 mg PO DAILY
atorvastatin 80 mg Tablet
80 mg PO DAILY Qty: 0 0RF
Vitamin D3 125 mcg tablet
1 dose PO DAILY Qty: 0 0RF
Patient Comments:
patient unsure of dosage, will bring list on day of testing
metoprolol succinate 50 mg Tablet Extended Release 24 Hr
50 mg PO QPM Qty: 0 1RF
benazepril 20 mg Tablet
5 mg PO DAILY Qty: 0 0RF
aspirin 81 mg Tablet,Delayed Release (Dr/Ec)
81 mg PO DAILY Qty: 0 0RF
Interventions
Interventions:
*Risk Screen - Suicide Last Done: 02/03/25 04:19
*General Assessment Last Done: 02/03/25 04:19
*Neglect/Abuse Screening Last Done: 02/03/25 04:19
*ED- Fall Risk Assessment Last Done: 02/03/25 04:28
*ED COVID-19 Vaccine History Last Done: 02/03/25 04:28
ED- Pulmonary Assessment Last Done: 02/03/25 04:28
ED- Neurological Assessment Last Done: 02/03/25 04:28
ED- Cardiac Assessment Last Done: 02/03/25 04:28
Discharge Date and Time
Print Language: BULGARIAN
--- NOTE | 2025-02-03 05:24 | HPS.HSE ---
Family Physician
-
Family Physician:
Chief Complaint
-
Slurred speech
History of Present Illness
This is a 89-year-old male with past medical history significant for status post recent TAVR, carotid artery stenosis status post stenting,, bladder/prostate cancer status post TURP, hypertension, hyperlipidemia, CAD, CHF with preserved EF who
presents to the emergency department for [facility] emergency department for episode of transient slurred speech.
Patient was recently status post TAVR and discharged on 11/01. The following morning the patient noticed facial asymmetry after getting out of bed at 930 to shave. He noticed that there was some right-sided droopiness to his face. His family
members agrees that the facial symmetry was abnormal and that he had some slurring of his speech. He arrived at [facility] Thereafter. They Noted Mild Right-Sided Facial Droop with Sparing of the Forehead As Well As Some Stuttering of His
Speech. NIH Was Initially Equals 2. His Last Known Normal Was the Previous Evening. No Thrombolytics Were Given.
Stroke workup was initiated which included the EKG chest x-ray CT of the head and CT angio of the head and neck. EKG did not show evidence of any acute ischemic abnormalities. Initial troponin was 105 on the scale with a repeat of 96. This was
attributable to the recent cardiac procedure. He was having no chest pain. Labs reviewed without any acute abnormalities. Chest x-ray was clear. CT of the head did not show evidence of intracranial hemorrhage midline shift or mass effect and CT
angio of the head and neck shows no large vessel occlusion dissection or aneurysm. Patient requires additional workup including an MRI for stroke evaluation. MRI not available at [place] and patient was therefore transferred to [facility]
for completion of the workup.
Patient reports that over the last 24 hours his speech has returned to normal and there is no further stuttering. Reports that his right-sided facial droop has also resolved.
In the emergency department here the patient was afebrile, blood pressure was 157/65 with a pulse of 70 and she was satting 98% on room air.
Medical History
Past Medical History
Past Medical History: Reports CAD, Cancer (prostate, bladder cancer), HTN, Hypercholesterolemia and Valvular Disease (Aortic stenosis status post TAVR)
Additional Past Medical History:
Recent hospitalization for bladder cancer and severe anemia requiring transfusion
Past Surgical History: Reports Urological (TURBT 12/28/2024) and Other (CABGX2 08/13/2016)
Social History
Tobacco: Non-smoker
Alcohol: Daily
Drug: None
Personal:
Living: Alone
Employment: Retired
Family History
Family History: Not pertinent
Allergies / Home Medications
Allergies reflects when Allergies were last updated in [facility].
Home Medications with original date entered in [employer] [facility]
Allergy/Medication List:
Medications:
amLODIPine Besylate 5 MG Tablet 1 tablet Orally Once a day.
Aspirin Adult Low Dose(Aspirin) 81 MG Tablet Delayed Release 1 tablet Orally Once a day.
Atorvastatin Calcium 80 MG Tablet 1 tablet Orally Once a day.
Benazepril HCl 20 MG Tablet 1 tablet Orally Once a day.
Doxazosin Mesylate 8 MG Tablet 1 tablet Orally Once a day.
Metoprolol Succinate ER 50 MG Tablet take 1 tablet by oral route every evening Oral.
Pantoprazole Sodium 40 MG Tablet take 1 tablet by oral route every day Oral.
Allergies:
Sulfa
Review of Systems
-
History Source: Patient
Constitutional: Reports Fatigue
EENT: Reports No Symptoms
Respiratory: Reports No Symptoms; Denies Cough, Hemoptysis or Trouble Breathing
Cardiac: Reports No Symptoms; Denies Chest Pain, Palpitations or Syncope
Abdomen/GI: Reports No Symptoms; Denies Abdominal Pain, Nausea, Vomiting or Diarrhea
: Reports Bleeding (recent admission in December for hematuria, now resolved); Denies Dysuria, Frequency or Incontinence
Musculoskeletal: Reports No Symptoms
Skin: Reports No Symptoms
Neurological: Reports No Symptoms; Denies Headache or Weakness
Endocrine: Reports No Symptoms
Hematologic/Lymphatic: Reports No Symptoms
Psych: Reports No Symptoms and Calm
Physical Exam
Vital Signs
Vital Signs
Temp Pulse BP Pulse Ox
97.5 F 70 157/65 96
02/03/25 04:19 02/03/25 05:00 02/03/25 05:00 02/03/25 05:19
Physical Exam
General: Well Developed, Well Nourished, No Apparent Distress and Comfortable
HEENT: NormoCephalic and PERRLA
Respiratory: Clear and Non Labored Respirations; No Wheezes, Rales or Rhonchi
Cardiac: S1/S2, Regular Rhythm and Murmur (Grade III/ ROLAND)
Breast: Deferred by me
GI: Soft, Non Tender, Non Distended and Normal Bowel Sounds
Rectal: Deferred by Provider
Genito-urinary: Deferred by me
Musculoskeletal: No Clubbing and No Edema
Skin: Warm and Dry
Neuro: AO x 3 and No Motor Deficits; No Slurred Speech or Facial Droop
Psych: Calm and Intact Judgment/Insight
Data Reviewed
-
CT Scan: Report Reviewed by me (From [facility])
Medical Tests (Nuc Med, Echo, EKG etc): Image Personally Visualized and interpreted
Lab Data: Labs Reviewed by me
Old Records: Reviewed
Impression/Plan
-
IMPRESSION:
89-year-old past medical history significant CAD, diastolic CHF, AAS status post TAVR about 2 to 3 days ago, history of carotid stenosis status post stenting presenting to the emergency department outside hospital for mild facial asymmetry and
speech impediment concerning for TIA. Patient had stroke evaluation in the ED. At the time NIHSS had resolved to 1. Imaging with CT of the head showed no acute intracranial process. CT angio shows no large vessel occlusion, dissection or
aneurysm. He was outside the window for TNK at the time so he was not given any additional medications. He was continued on his aspirin and statin. Plan was to get MRI unfortunately this was not available at [facility] so he was
transferred to [facility] as he had recently been at [place] for his TAVR.
PLAN:
TIA/CVA -episode of facial droop lasting hours which is now resolved. He is at moderate to high risk for impending stroke, currently NIHSS equals 0.
- Admit to telemetry
- Neurochecks every 6
- He is status post imaging in the ED, completes imaging workup with MRI brain today
- Continue aspirin and statin, hold on Plavix unless MRI is positive
- Recent labs pending this morning.
- tolerating po well and no current focal deficits
- PT consult
- neuroconsult depending on MRI findings.
Aortic stenosis status post TAVR, CAD, CHF with preserved EF. No CP, trop 0.14 elevated but trending down from recent highs of 2s and prior surgery 2/3 days ago
- Hypertensive/hemodynamically stable, no evidence of acute heart failure, no chest pain, trend troponin
- Continue aspirin and statin
- Continue metoprolol succinate
- continue to trend
Bladder cancer status post resection
- Trend hemoglobin
- Continue doxazosin
DVT prophylaxis�heparin subcu
CODE STATUS�full code at this time
[2025-02-03 06:15] LABS: Hematocrit 30.1 % (39.0-52.0); Hemoglobin 10.0 g/dL (13.0-18.0); Mean Corp Hgb Conc. 33.2 g/dL (33.0-37.0); Mean Corpuscular Volume 93.5 fL (80.0-94.0); Platelet Count 85 10^3/uL (130-400); Red Cell Dist. Width 16.1 % (11.5-14.5)
[2025-02-03 06:25] LABS: Blood Urea Nitrogen 19 mg/dl (9-20); Calcium 8.8 mg/dl (8.4-10.2); Carbon Dioxide 27 mmol/L (22-30); Chloride 111 mmol/L (98-107); Estimated Creatinine Clearance 52 ml/min; Glucose 89 mg/dl (70-99); Magnesium 1.9 mg/dl (1.6-2.3); Potassium 4.0 mmol/L (3.5-5.1); Sodium 142 mmol/L (135-145); eGFR > 60.00
[2025-02-03 06:45] LABS: Troponin I 0.141 ng/ml
--- NOTE | 2025-02-03 09:37 | CON.NEURO ---
Neuro Assessment/Plan
Assessment
89 year old man minor stroke 2/2 balbir/intraoperative TAVR. This is common as during the procedure, as the catheter can flick off atherosclerotic plaque; the presence of atherosclerosis on the valve is why he needed the TAVR in the first place.
Additionally, microemboli are very common during TAVR, such that the average patient will have subtle cognitive changes detectable on neuropsych testing, and will be expected to be seen on brain MRI, though we are obviously not doing them after
every TAVR.
will do MRI to determine stroke/microemboli burden though i would not change the rx; continue ASA 81 and Lipitor 80
in itself is a high stroke risk which is reduced after the procedure, and I would consider this to be a minor hiccup compared to the symptomatic and stroke reduction benefits
Consultation
Order
Date of Consultation: 02/03/25
Requesting Provider: Christina
Reason for Consult: Stroke
Subjective/Objective
Subjective Data
Date of Service: February 03, 2025
from h&p:
This is a 89-year-old male with past medical history significant for status post recent TAVR, carotid artery stenosis status post stenting,, bladder/prostate cancer status post TURP, hypertension, hyperlipidemia, CAD, CHF with preserved EF who
presents to the emergency department for [facility] emergency department for episode of transient slurred speech.
Patient was recently status post TAVR and discharged on 11/01. The following morning the patient noticed facial asymmetry after getting out of bed at 930 to shave. He noticed that there was some right-sided droopiness to his face. His family
members agrees that the facial symmetry was abnormal and that he had some slurring of his speech. He arrived at [facility] Thereafter. They Noted Mild Right-Sided Facial Droop with Sparing of the Forehead As Well As Some Stuttering of His
Speech. NIH Was Initially Equals 2. His Last Known Normal Was the Previous Evening. No Thrombolytics Were Given.
Stroke workup was initiated which included the EKG chest x-ray CT of the head and CT angio of the head and neck. EKG did not show evidence of any acute ischemic abnormalities. Initial troponin was 105 on the scale with a repeat of 96. This was
attributable to the recent cardiac procedure. He was having no chest pain. Labs reviewed without any acute abnormalities. Chest x-ray was clear. CT of the head did not show evidence of intracranial hemorrhage midline shift or mass effect and CT
angio of the head and neck shows no large vessel occlusion dissection or aneurysm. Patient requires additional workup including an MRI for stroke evaluation. MRI not available at [place] and patient was therefore transferred to [facility]
for completion of the workup.
today he says the slurred speech is resolved. still has a right facial droop.
Objective Data
Vital Signs
Temp Pulse BP Pulse Ox
36.4 C 82 163/55 96
02/03/25 04:19 02/03/25 09:15 02/03/25 09:00 02/03/25 09:15
Lab Results
02/03/25 05:45
02/03/25 05:45
Sodium 142 mmol/L (135-145) 02/03/25 05:45
Potassium 4.0 mmol/L (3.5-5.1) 02/03/25 05:45
BUN 19 mg/dl (9-20) 02/03/25 05:45
Glucose 89 mg/dl (70-99) 02/03/25 05:45
Calcium 8.8 mg/dl (8.4-10.2) 02/03/25 05:45
Patient Allergies
Sulfa (Sulfonamide Antibiotics) Allergy (Verified 02/03/25 04:18)
Unknown
CVA Assessment
NIH Stroke Score
Level of Consciousness: 0 - Alert
LOC Questions: 0-Answers both correctly
LOC Commands: 0-Performs both correctly
Best Horizontal Gaze: 0-Normal
Visual Santos: 0=Normal, no visual loss
Facial Palsy: 2=Partial paralysis
Motor - Right Arm: 0=No drift 10 seconds
Motor - Left Arm: 0=No drift 10 seconds
Motor - Right Le-No drift 5 seconds
Motor - Left Le-No drift 5 seconds
Limb Ataxia: 0-Absent
Sensation: 0-Normal
Best Language: 0-No aphasia
Dysarthria: 0-Normal
Extinction and Inattention: 0-No abnormality
NIH Total Score:: 2
Tenecteplase Contraindications
Reasons for NON-Tx with Thrombolytics POSSIBLE Exclusions: Major surgery or serious trauma within proceding 14 days
Physical Exam
-
AAOx3, speech clear, language intact
VFF, EOMI, right facial droop
trace right sided weakness and pronator drift
Medications
-
Home Medications
�Medication �Instructions �Recorded
doxazosin 8 mg tablet 8 mg PO DAILY BPH 08/11/16
pantoprazole 40 mg tablet,delayed 40 mg PO DAILY Gastrointestinal 08/11/16
release Issue
ferrous sulfate 325 mg (65 mg 325 mg PO DAILY Supplement 12/26/24
iron) tablet
Vitamin D3 1 dose PO DAILY Supplement ##0 02/01/25
aspirin 81 mg tablet,delayed 81 mg PO DAILY Blood clot 02/01/25
release prevention/tx #0 tabs
atorvastatin 80 mg tablet 80 mg PO DAILY High cholesterol #0 02/01/25
tabs
benazepril 20 mg tablet 5 mg (1/4 x 20 mg) PO DAILY Blood 02/01/25
pressure #0 tabs
metoprolol succinate 50 mg 50 mg PO QPM Heart 02/01/25
tablet,extended release 24 hr disease/condition #0 tabs
--- NOTE | 2025-02-03 14:06 | W.PN.HOSP.TC ---
Today's Communication/Plan
-
Assessment / Plan
Assessment / Plan
General: No Apparent Distress, Comfortable and Conversant
HEENT: NormoCephalic, Moist mucous membranes, Atraumatic
Respiratory: Clear and Non Labored Respirations
Cardiac: S1/S2 and Regular Rhythm; No Rub or Gallop
GI: Soft, Non Tender, Non Distended and Normal Bowel Sounds
Musculoskeletal: No Edema, no deformity
Skin: Warm and dry
: NO Colvin
Neuro: Awake, Alert, mild right facial droop
Psych: Calm and Intact Judgment/Insight
Mr. Haq is an 89-year-old male with medical history of CAD (status post CABG x 2 on 08/13/2016), aortic stenosis (status post recent TAVR 01/31/2025), HFpEF, bladder cancer (status post TURBT 12/28/2024), and prostate cancer (remotely, status
post radiation) who presented with dysarthria and right facial droop. These findings were noticed upon waking in the morning. His last known normal was the evening prior. He was not a candidate for thrombolytics. CT brain showed no evidence of
intracranial hemorrhage or mass effect and angiography showed no large vessel occlusion or aneurysm. He was admitted for further evaluation management.
Acute CVA:
- Suspect related to recent TAVR, which is a known risk
- Symptoms are minor and mostly resolved at this point
- MRI brain pending
- Neurology following, recommend continuing low-dose aspirin and high intensity statin
- PT/OT and PORCELAIN ENAMELER evaluations pending
- Cardiothoracic surgical team who performed recent TAVR have been made aware
- Anticipate will be medically stable for discharge in the next 24 hours
Aortic stenosis:
- Status post recent TAVR 01/31/2025
- Outpatient follow-up with cardiology
CAD:
- History of CABG x 2
- Currently stable
- Continue low-dose aspirin and high intensity statin
HFpEF:
- Chronic, currently compensated
- Continue afterload reduction with TWYLA inhibitor
DVT prophylaxis: Heparin
CODE STATUS: Full code
Total time spent on today's encounter was 54 minutes
Anticipated Discharge: Within 24 hours
Subjective/Interval History
-
Date of Service: February 03, 2025
Patient was seen and examined at bedside this morning. His dysarthria has resolved although he still has some mild right-sided facial droop. Brain MRI is pending.
Objective Data
-
Labs:
Laboratory Results
02/03/25
05:45
WBC 3.9 L
Hgb 10.0 L
Hct 30.1 L
Plt Count 85 L
Sodium 142
Potassium 4.0
Chloride 111 H
Carbon Dioxide 27
BUN 19
Creatinine 0.8
Glucose 89
Calcium 8.8
Vital Signs:
Vital Signs
Temp Pulse BP Pulse Ox
97.6 F 82 163/69 96
02/03/25 08:00 02/03/25 10:30 02/03/25 10:00 02/03/25 09:15
Review of Systems
-
History Source: Patient
All other systems: Reviewed and negative
Physical Exam
-
General: No Apparent Distress
[2025-02-03] MEDS: ZESTRIL 5 MG PO (14:28)
[2025-02-03] MEDS: FEOSOL 325 MG PO (14:28)
[2025-02-03] MEDS: PROTONIX 40 MG PO (14:30)
[2025-02-03] MEDS: ASPIR LOW (ENTERIC COATED) 81 MG PO (14:30)
[2025-02-03] MEDS: CARDURA 8 MG PO (14:30)
[2025-02-03] MEDS: LIPITOR 80 MG PO (14:30)
--- NOTE | 2025-02-03 15:23 | CM ---
Addendum entered by Yodit Espinal 02/03/25 15:49:
[facility]
[phone]

Original Note:
manager regional reviewed patient's chart and patient was admitted under obs, FRANKEL letter provided to patient singed and placed on chart, patient lives alone in a 2 story home with 5 steps to enter, patient is independent with adl's and ambulation,
patint drives, per patient he was recently discharged and set up with cardiac nurse, patient is agreeable to visiting nurses at discharge and patient is agreeable to a referral to [facility]ending [facility] to [facility].
PCP: Susan Lemus
Pharmacy: [facility] in [place]
Plan; Home with [facility].
--- NOTE | 2025-02-03 15:54 | PTOTSP ---
Speech therapy
Presentation: Patient was oriented, cooperative, and followed commands. Patient's speech and language appeared to be WNL during conversation with KETTLE GIRL and family members. Patient denied communication deficits.
Swallowing Function: KETTLE GIRL observed patient with several bites of sandwich and sips of thin liquid (straw) from meal tray in which patient appeared to tolerate as he did not exhibit any overt clinical s/sx of aspiration or difficulty with mastication/
manipulation. Patient denied any dysphagia complaints.
02/03 Brain MRI: 'Several (approximately 5-6) scattered nonhemorrhagic acute/subacute infarcts, including within the left frontoparietal and occipital lobes and right cerebellum. Findings may be of embolic etiology.'
Recommendations:
1) reg/ thin
2) medications as tolerated
3) aspiration precautions
4) consideration of cog or speech evaluation give MRI results
Plan: KETTLE GIRL will continue to follow to ensure tolerance adn r/o need for further evaluation; pending hospitalization.
[2025-02-03] MEDS: TOPROL XL 50 MG PO (17:02)
[2025-02-03] MEDS: HEPARIN 5000 UNITS SC ×2 (17:02→23:10)
--- NOTE | 2025-02-03 18:27 | PTCARENOTE ---
Patient received from ED. Code status was full. Patient and family expressed DNR/I. Hospitalist made aware. Plan of care ongoing.
[2025-02-04 03:11] VITALS: BP 137/60
[2025-02-04 06:00] VITALS: BMI 21.5
[2025-02-04 07:00] VITALS: BP 155/63
[2025-02-04] MEDS: PROTONIX 40 MG PO (09:07)
[2025-02-04] MEDS: FEOSOL 325 MG PO (09:07)
[2025-02-04] MEDS: ZESTRIL 5 MG PO (09:07)
[2025-02-04] MEDS: LIPITOR 80 MG PO (09:07)
[2025-02-04] MEDS: HEPARIN 5000 UNITS SC (09:07)
[2025-02-04] MEDS: ASPIR LOW (ENTERIC COATED) 81 MG PO (09:09)
[2025-02-04] MEDS: CARDURA 8 MG PO (09:15)
[2025-02-04 09:18] VITALS: BP 177/71; O2SAT 93
[2025-02-04 09:19] VITALS: BP 177/71; PULSE 71; O2SAT 99
--- NOTE | 2025-02-04 10:16 | CM ---
Home when stable, patient has been set up with [facility].
[facility]
[phone]
[2025-02-04 11:00] VITALS: BP 140/49
--- NOTE | 2025-02-04 13:18 | W.DCSUMMARY ---
Addendum entered and electronically signed by Rodolfo Juan MD 02/04/25 16:10:
Chronic thrombocytopenia.
Platelet count slowly trending down to 85K
Will check HIT
Follow-up CBC in 1 week
Original Note:
Discharge Summary
Discharge Data
Date of Admission: 02/03/25
Date of Discharge: 02/04/25
Total time spent discharging patient (in min): 35
-
Pending Results: No
Hospital Course
Mr. Haq is an 89-year-old male with medical history of CAD (status post CABG x 2 on 08/13/2016), aortic stenosis (status post recent TAVR 01/31/2025), HFpEF, bladder cancer (status post TURBT 12/28/2024), and prostate cancer (remotely, status
post radiation) who presented with dysarthria and right facial droop. These findings were noticed upon waking in the morning. His last known normal was the evening prior. He was not a candidate for thrombolytics. CT brain showed no evidence of
intracranial hemorrhage or mass effect and angiography showed no large vessel occlusion or aneurysm. He was admitted for further evaluation management.
Acute CVA:
- Suspect related to recent TAVR, which is a known risk
- Symptoms are minor and mostly resolved at this point
- MRI brain: Several (approximately 5-6) scattered nonhemorrhagic acute/subacute infarcts, including within the left frontoparietal and occipital lobes and right cerebellum. Findings may be of embolic etiology.
- Neurology following, recommend continuing low-dose aspirin and high intensity statin
- PT/OT and MANUFACTURING WEAVER evaluations pending
- Cardiothoracic surgical team who performed recent TAVR have been made aware
- Neurologic status has been stable since admission with full recovery of presenting symptoms. Seen by physical intubational therapy with recommendation for discharge home.
Aortic stenosis:
- Status post recent TAVR 01/31/2025
- Outpatient follow-up with cardiology
CAD:
- History of CABG x 2
- Currently stable
- Continue low-dose aspirin and high intensity statin
HFpEF:
- Chronic, currently compensated
- Continue afterload reduction with TWYLA inhibitor
DVT prophylaxis: Heparin
CODE STATUS: Full code
Discharge Plan
-
Patient Disposition: Home (Routine Discharge)
Discharge Diagnosis/Procedures: Acute CVA
Aortic stenosis, status post TAVR 01/31
Condition: Good
Diet: Low Cholesterol
Referrals:
UNKNOWN - PT DOES,NOT KNOW [Family Provider]
Prescriptions:
Continued
doxazosin 8 MG tablet
8 mg PO DAILY
pantoprazole 40 MG tablet,delayed release (DR/EC)
40 mg PO DAILY
ferrous sulfate 325 mg (65 mg iron) Tablet
325 mg PO DAILY
atorvastatin 40 mg tablet
80 mg PO DAILY
Patient Comments:
pt believes he should be taking 80mg, so he is doubling the dose most recently filled
benazepril 5 mg tablet
5 mg PO DAILY
aspirin 81 mg Tablet,Delayed Release (Dr/Ec)
81 mg PO DAILY
cholecalciferol (vitamin D3) 125 mcg (5,000 unit) Tablet
125 mcg PO DAILY
Discharge Orders:
Discharge Patient (As Directed); Ordered 02/04/25
Ordered By: Rodolfo Juan
Discharge Date and Time
Print Language: RWANDAN
--- NOTE | 2025-02-04 14:16 | W.PN.NEURO.1 ---
Today's Communication / Plan
-
Check lipid profile
Provide medical educational materials
Continue aspirin
Goal of normotension
Neuro Assessment/Plan
Assessment
89 year old man minor acute ischemic stroke 2/2 balbir/intraoperative TAVR.
Stroke was demonstrated by MRI of the brain with embolic appearing outcome
Patient was not a candidate for either tenecteplase or intra-arterial thrombectomy due to the timeframe
Plan
Check lipid profile
Provide medical educational materials
Continue aspirin
Goal of normotension
Will follow as needed
Subjective/Objective
Subjective Data
Date of Service: February 04, 2025
Objective Data
Vital Signs
Temp Pulse Resp BP Pulse Ox
36.4 C 75 16 140/49 97
02/04/25 11:00 02/04/25 11:00 02/04/25 11:00 02/04/25 11:00 02/04/25 11:00
Lab Results
02/03/25 05:45
02/03/25 05:45
Sodium 142 mmol/L (135-145) 02/03/25 05:45
Potassium 4.0 mmol/L (3.5-5.1) 02/03/25 05:45
BUN 19 mg/dl (9-20) 02/03/25 05:45
Glucose 89 mg/dl (70-99) 02/03/25 05:45
Calcium 8.8 mg/dl (8.4-10.2) 02/03/25 05:45
Patient Allergies
Sulfa (Sulfonamide Antibiotics) Allergy (Verified 02/03/25 04:18)
Unknown
Data Reviewed
-
MRI Head: Report Reviewed
Labs: Report Reviewed
Reviewed with: Physician, Nurse and Family (By phone)
Old Records: Summarized
Past History
Past History
ED Past Medical History: CAD, Cancer (Bladder, prostate), CVA, HTN, Hypercholesterolemia and Other
ED Past Surgical History: Cardiac (TAVR, CABG 2017) and Urological (TURBT)
Social History
Alcohol: Daily
Personal:
Employment: Retired
Family History
Family History: Other (Reviewed and noncontributory)
Medications
-
Medications:
Generic Name Dose Route Start Last Admin
Trade Name Freq PRN Reason Stop Dose Admin
Acetaminophen 650 mg 02/03/25 10:42
Acetaminophen 325 Mg Tablet PO 03/03/25 10:41
Q4HPRN PRN
mild pain/FRANKLIN/temp> 100.4F
Aspirin 81 mg 02/03/25 10:42 02/04/25 09:09
Aspirin 81 Mg (Enteric Coated) Tablet PO 03/03/25 10:41 81 mg
DAILY ABDI Administration
Atorvastatin Calcium 80 mg 02/03/25 10:42 02/04/25 09:07
Atorvastatin (Lipitor) 80 Mg Tablet PO 03/03/25 10:41 80 mg
DAILY ABDI Administration
Doxazosin Mesylate 8 mg 02/03/25 11:00 02/04/25 09:15
Doxazosin 4 Mg Tablet PO 03/03/25 10:59 8 mg
DAILY ABDI Administration
Ferrous Sulfate 325 mg 02/03/25 10:42 02/04/25 09:07
Ferrous Sulfate 325 Mg Tablet PO 03/03/25 10:41 325 mg
DAILY ABDI Administration
Heparin Sodium 5,000 units 02/03/25 16:00 02/04/25 09:07
Heparin 5,000 Units/Ml 1 Ml Vial SC 03/03/25 15:59 5,000 units
Q8 ABDI Administration
Lisinopril 5 mg 02/03/25 11:00 02/04/25 09:07
Lisinopril 5 Mg Tablet PO 03/03/25 10:59 5 mg
DAILY ABDI Administration
Metoprolol Succinate 50 mg 02/03/25 18:00 02/03/25 17:02
Metoprolol 50 Mg Extended Release Tablet PO 03/03/25 17:59 50 mg
QPM ABDI Administration
Pantoprazole Sodium 40 mg 02/03/25 10:42 02/04/25 09:07
Pantoprazole 40 Mg Delayed Release Tablet PO 03/03/25 10:41 40 mg
DAILY ABDI Administration
Senna/Docusate Sodium 1 tablet 02/03/25 10:42
Docusate W/Senna (Balbir-Colace) Tablet PO 03/03/25 10:41
BIDPRN PRN
constipation
Trimethobenzamide HCl 200 mg 02/03/25 11:24
Trimethobenzamide 200 Mg/2 Ml Vial IM 03/03/25 11:23
Q8HPRN PRN
nausea
--- NOTE | 2025-02-04 14:55 | CON.CAR ---
Addendum entered and electronically signed by Odalis Siddiqi MD 02/04/25 16:38:
I saw and examined the patient.
The Secured Entrance Monitor's note was reviewed and I agree with the note.
Comment: . Patient is well-known to me and briefly is a 89-year-old male with past medical history of hypertension, hyperlipidemia, carotid artery stenosis status post stenting, prostate cancer status post radiation therapy, coronary artery
disease status post CABG in 2017, recent hematuria found to have a bladder mass with acute blood loss anemia status post TURBT in December 2024, severe aortic stenosis status post a 26 mm Medtronic evolute fracture plus TAVR valve via left transfemoral
artery with post TAVR new left bundle branch block who presents with history of right facial droop soon after getting out of bed with transient slurred speech. He reports very mild weakness of his right upper extremity. Thankfully all of his
symptoms have resolved at this point. He initially presented to [facility] and stroke workup was initiated. No acute EKG changes. Head CT showed no evidence of intracranial hemorrhage, midline shift or mass effect and CT angio of head and
neck showed no large vessel occlusion dissection or aneurysm. Brain MRI was recommended however given the brain MRI machine was not available at [facility] he was transferred to [facility] for further workup and management.
Lab work and vital signs reviewed. Patient is well-appearing, in good spirit, awake, alert and oriented x 3, all neurologic symptoms seem to have resolved, patient is nonfocal on my neuroexam, regular rate, normal S1 and S2, no murmurs, rubs or
gallops, no JVD, no carotid bruit, lungs are clear to auscultation bilaterally, abdomen is soft, nontender, nondistended with active bowel sounds, warm extremities without significant edema.
MRI brain on February 03, 2025 showed 5-6 scattered nonhemorrhagic acute/subacute infarcts including within the left frontoparietal and supra lobes along with right cerebellum, findings consistent with likely embolic etiology.
Platelets noted to be low 02/03 at 85, previously usually in the low 100s.
Recommendations:
1. Patient is status post left transfemoral TAVR with 26 mm Medtronic evolute fracture plus valve with no new acute cardiac issues however does seem to have suffered a TIA.
2. Neurology input was obtained and thankfully patient's symptoms have resolved.
3. Continue daily baby aspirin and high intensity statin.
4. Continued aggressive management of cardiovascular risk factors. Given new left bundle branch block post TAVR plan to reduce Toprol-XL to 25 mg daily while patient continues to wear outpatient monitor. Of note, there has been no evidence of
atrial fibrillation on the monitor.
5. His amlodipine was held at discharge, given hypertension plan to resume low-dose amlodipine at 2.5 mg daily.
6. Discussed with hospitalist service to send out HIT panel given thrombocytopenia to appears to be likely chronic and recheck CBC in 1 week as an outpatient.
Outpatient cardiology follow-up in 2 weeks
Discussed with family and outpatient licensed practical nurse instructor
Odalis Siddiqi MD, [facility], [facility]
Addendum entered and electronically signed by Odalis Siddiqi MD 02/04/25 16:37:
I saw and examined the patient.
The Secured Entrance Monitor's note was reviewed and I agree with the note.
Comment:
Original Note:
Consultation
Consultation Request
Date/Time Consultation Requested: 02/04/2025, 1455
Date/Time Consultation Performed: 02/04/2025, 1456
Requesting Provider: Dr Juan
Performing Provider: JEREMY Bonilla for Dr. Siddiqi
Reason for Consultation: CVA status post TAVR
Medical History
-
Chief Complaint: Right-sided facial droop and garbled speech
History of Present Illness:
89-year-old male with history of severe status post TAVR 01/31/2025, new left bundle branch block post TAVR, CAD status post CABG 2016, carotid artery stenosis status post stenting, hypertension, hyperlipidemia, prostate cancer status post
radiation therapy, resection of bladder tumor 12/2024.
Patient had #26 mm L TF TAVR 01/31/2025 and was discharged 02/01/2025. Given new left bundle branch block postprocedure, he was discharged on a 14-day Rhythmstar monitor which he continues to wear.
Follow-up echo 02/01/2025 with stable peak/mean gradients 19/11 mmHg.
Meds at discharge:Aspirin 81 mg, Toprol 50 mg nightly, atorvastatin 80 mg, benazepril 5 mg daily, Doxazosin, ferrous sulfate, pantoprazole
On the morning of 02/02/2025 he noted right facial droop after getting out of bed with slurred speech. Also with mild weakness of right upper extremity. He went to [facility] and stroke workup was initiated. There were no acute EKG
abnormalities. Head CT showed no evidence of intracranial hemorrhage, midline shift or mass effect and CT angio of the head and neck showed no large vessel occlusion dissection or aneurysm. Additional evaluation with an MRI was recommended an MRI
was not available at [facility] and therefore he was transferred to [facility] for MRI.
MRI 02/03/2025: 5-6 scattered nonhemorrhagic acute/subacute infarcts including within the left frontoparietal and the supra lobes and right cerebellum. Findings may be of embolic etiology.
He was evaluated by neurology and continued aspirin and high intensity statin were advised.
Patient reports resolution of right facial droop and slurred speech. Denies weakness.
In review of labs: platelets 85 02/03/2025, had been 92 02/01/2025 and in low 100 range during recent admission December 2024
Past medical history:
Severe
s/p #26 mm L TF TAVR 01/31/2025
New LBBB post TAVR
Abnormal CT abdomen/pelvis with bladder lesions concerning for malignancy and possible left kidney complex cyst versus malignant lesion 12/26/2024
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
CAD
s/p CABG x2 NICOLAS to LAD and SVG to OM2 2016
s/p cath with patient bypass grafts, severe lummi CAD 11/16/2024
HTN
HLD
h/o prostate cancer s/p radiation therapy
Past Medical History
Past Medical History: Other (As above)
Past Surgical History: Urological and Other (Status post TAVR 01/31/2025, CABG 2017, bladder tumor resection 12/2024)
Social History
Tobacco: Non-Smoker
Alcohol: Daily
Drug: None
Personal:
Family History
Family History: Reviewed & Not Pertinent
Allergies / Home Medications
Allergy/AdvReac Type Severity Reaction Status Date / Time
Sulfa (Sulfonamide Allergy Unknown Verified 02/03/25 04:18
Antibiotics)
�Medication �Instructions �Recorded �Confirmed �Type
doxazosin 8 mg tablet 8 mg PO DAILY BPH 08/11/16 02/03/25 History
pantoprazole 40 mg tablet,delayed 40 mg PO DAILY Gastrointestinal 08/11/16 02/03/25 History
release Issue
ferrous sulfate 325 mg (65 mg 325 mg PO DAILY Supplement 12/26/24 02/03/25 History
iron) tablet
aspirin 81 mg tablet,delayed 81 mg PO DAILY Blood Clot 02/03/25 02/03/25 History
release Prevention/Tx
atorvastatin 40 mg tablet 80 mg PO DAILY High Cholesterol 02/03/25 02/03/25 History
benazepril 5 mg tablet 5 mg PO DAILY Blood Pressure 02/03/25 02/03/25 History
cholecalciferol (vitamin D3) 125 125 mcg PO DAILY Supplement 02/03/25 02/03/25 History
mcg (5,000 unit) tablet
Review of Systems
-
History Source: Patient
All other systems: Negative unless noted
Physical Exam
Vital Signs
Temp Pulse Resp BP Pulse Ox
97.5 F 75 16 140/49 97
02/04/25 11:00 02/04/25 11:00 02/04/25 11:00 02/04/25 11:00 02/04/25 11:00
Lab Results
02/03/25 05:45
02/03/25 05:45
Troponin I 0.141 ng/ml H* 02/03/25 06:03
GEN: No distress, awake, Ox3
HEENT: supple, anicteric, mmm
LUNGS: CTA, no wheezes/rales
CV: Reg, S1/S2, 1/6 syst LSB, no murmur
ABD: soft, BS+, NT/ND
EXT: No edema
NEURO: Gross non-focal
SKIN: No rash
Impression / Plan
-
PCP: Dr. Sheron Lemus
Primary Financial Institution Vice President: Dr. Batista of [facility]
Assessment:
TIA/CVA
Severe
s/p #26 mm L TF TAVR 01/31/2025
New LBBB post TAVR
thrombocytopenia
Abnormal CT abdomen/pelvis with bladder lesions concerning for malignancy and possible left kidney complex cyst versus malignant lesion 12/26/2024
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
CAD
s/p CABG x2 NICOLAS to LAD and SVG to OM2 2016
s/p cath with patient bypass grafts, severe lummi CAD 11/16/2024
HTN
HLD
h/o prostate cancer s/p radiation therapy
anemia s/p admission to [facility] 12/2024 Hgb 4.7- rec'd 4 u prbcs
Echo at [facility] 10/18/24: EF 60%, mild cLVH, grade 1 diastolic dysfunction, Severe with peak/mean gradient 73/37 mmHg LEANNE 0.8 cm�, peak velocity 4.3M/S with dimensionless index of 0.2, mild to mod MR, mild TR, mod AK, PAS 24mmHg, at
least one echolucent structure in hepatic parenchyma likely consistent with hepatic cysts
Echo 12/27/2024: Mild LVH, EF 57%, MAC, mild to moderate mitral regurgitation, dilated left atrium, severe aortic stenosis with trace aortic regurgitation, peak/mean aortic valve gradient 55/31 mmHg, aortic valve area 0.7 cm 2, dimensionless index
0.3, normal RV, preserved RV function, pulmonary artery systolic pressure 42-47 mmHg
Echo 02/01/2025: EF 62%, mild LVH, s/p TAVR with peak/mean gradients 19/11 mmHg, mild paravalvular AR, mild MR, mild TR, estimated PAP 25 mmHg
Plan:
-Known severe , s/p L TF TAVR 01/31/2025, postop day 4
-Developed right facial droop, slurred speech, mild right-sided upper extremity weakness on postop day 2.
-MRI 02/03/2025: scattered nonhemorrhagic acute/subacute infarcts including within left frontoparietal and occipital lobes and right cerebellum, may be of embolic etiology
-facial droop and sl speech have resolved
-Telemetry personally reviewed: Normal sinus rhythm
-Patient wearing Rhythmstar monitor since 02/01/2025: No atrial fibrillation
-Continue aspirin and high intensity statin.
-LDL 55
-Normotensive BP goal. Patient currently on Toprol 50 mg nightly, lisinopril 5 mg daily (benazepril in home setting). Previously on Amlodipine but not continued after TAVR
-BP 140s-150s/ this admit - restart Amlodipine 2.5 mg daily
-New LBBB noted post-TAVR. No significant bradycardia or pauses on telemetry. Had been on Toprol 50 mg daily but given new LBBB rec: reduce Toprol to 25 mg daily.
-EKG : NSR 1st degree AVB, LBBB
-Post TAVR echo 02/01/25 stable with peak/mean gradients 19/11 mmHg.
Plts 85, trended down from 92 02/01, had been 105-120s prior admission December 2024
- repeat CBC or 02/08- please give lab slip
Data Reviewed
-
EKG: Tracing Personally Visualized and interpreted
Labs: Labs Reviewed by me
[2025-02-04 15:00] VITALS: BP 142/66
[2025-02-04 15:30] LABS: HDL Cholesterol 75 mg/dl; LDL Cholesterol, Calculated 55 mg/dl; Very Low Density Lipoprotein 17 mg/dl (0-30)
== END 2025-02-04 18:37 | disposition home health service (06) | DRG 91 ==
LOC: 4 WEST ACU 14:58
PROVIDERS: Psychiatry & Neurology Neurology; ADMITTING PHYSICIAN Internal Medicine; ATTENDING PHYSICIAN Internal Medicine; CONSULT PHYSICIAN Internal Medicine Interventional Cardiology; CONSULT PHYSICIAN Psychiatry & Neurology Clinical Neurophysiology
DX: I97.820 Postprocedural cerebrovascular infarction following cardiac surgery (principal); I63.441 Cerebral infarction due to embolism of right cerebellar artery; I63.49 Cerebral infarction due to embolism of other cerebral artery; I50.32 Chronic diastolic (congestive) heart failure; R29.700 NIHSS score 0; R29.810 Facial weakness; I11.0 Hypertensive heart disease with heart failure; I25.10 Atherosclerotic heart disease of native coronary artery without angina pectoris; D64.9 Anemia, unspecified; D69.6 Thrombocytopenia, unspecified; E78.00 Pure hypercholesterolemia, unspecified; R47.81 Slurred speech; N40.0 Benign prostatic hyperplasia without lower urinary tract symptoms; I35.0 Nonrheumatic aortic (valve) stenosis; Z95.2 Presence of prosthetic heart valve; Z95.1 Presence of aortocoronary bypass graft; Z95.828 Presence of other vascular implants and grafts; Z92.3 Personal history of irradiation; Z90.79 Acquired absence of other genital organ(s); Z88.2 Allergy status to sulfonamides; Z85.51 Personal history of malignant neoplasm of bladder; Z85.46 Personal history of malignant neoplasm of prostate; Z79.899 Other long term (current) drug therapy; Z79.82 Long term (current) use of aspirin; Y83.8 Other surgical procedures as the cause of abnormal reaction of the patient, or of later complication, without mention of misadventure at the time of the procedure
CPT/HCPCS: 70551; 80048; 80061; 83735; 84484; 85027; 92610; 93005; 97162; 97167; 99285